=== PATIENT | female | born 1945 ===

== ENCOUNTER 2017-09-04 02:34 | Inpatient (IN) | payer OTHER, MEDICARE ==
[~2017-09-04] VITALS: Ht 167.6 cm; Wt 65.8 kg
--- NOTE | 2017-09-04 02:38 | ED CRITICAL CARE ---
History of Present Illness General Chief Complaint: Dyspnea (COPD, CHF, Other) Stated Complaint: SOB,DIFF BREATHING Source: patient, old records Exam Limitations: clinical condition Vital Signs & Intake/Output Vital Signs & Intake/Output Vital Signs Date Time Temp Pulse Resp B/P B/P Pulse O2 O2 Flow FiO2 Mean Ox Delivery Rate 09/04 0556 99.0 111 20 132/74 96 BIPAP 40% 09/04 0540 113 95 09/04 0536 115 100 09/04 0522 99.8 116 22 126/75 99 BIPAP 60% 09/04 0510 119 22 97 BIPAP 60% 09/04 0446 122 09/04 0437 BIPAP 60% 09/04 0437 128 20 98 BIPAP 60% 09/04 0414 98.7 133 27 131/78 94 BIPAP 70% 09/04 0325 138 30 97 BIPAP 70% 09/04 0252 99.1 142 30 138/67 100 BIPAP 100% 09/04 0240 148 100 09/04 0237 99.9 143 34 188/118 85 Room Air Allergies Coded Allergies: Opioids - Morphine Analogues (Intermediate, BAD RASHES 09/04/17) Opioids-Meperidine and Related (Intermediate, BAG RASHES 09/04/17) oxycodone (Intermediate, BAD RASHES 09/04/17) Reconcile Medications Albuterol Sulfate 0.63 MG/3 ML VIAL.NEB 1 Vial INH/AVRIL 4 TIMES/DAY BREATHING (Reported) Aripiprazole (Abilify) 2 MG TABLET 1 TAB PO DAILY BIPOLAR (Reported) Aspirin (Ecotrin*) 81 MG TABLET.DR 1 TAB PO DAILY HEART (Reported) Clonazepam (Klonopin) 1 MG TABLET 1 TAB PO BIDP PRN MOOD (Reported) Duloxetine HCl 30 MG CAPSULE.DR 1 CAP PO DAILY MOOD (Reported) Ferrous Sulfate 325 MG (65 MG IRON) TABLET 1 TAB PO BID SUPPLEMENT (Reported) Fluticasone Propionate (24 Hour Allergy Relief) 50 MCG/ACTUATION SPRAY.SUSP BREATHING (Reported) Furosemide 20 MG TABLET 60 MG CHF (Reported) Furosemide (Lasix) 40 MG TABLET 1 TAB PO DAILY EDEMA (Reported) Gabapentin 400 MG CAPSULE 1 CAP PO TID PAIN (Reported) Losartan Potassium 25 MG TABLET 12.5 MG HTN (Reported) Omeprazole Magnesium (Prilosec Otc) 20 MG TABLET.DR 1 TAB PO DAILY REFLUX ( Reported) Potassium Chloride 20 MEQ TAB.ER.PRT 1 TAB PO DAILY SUPPLEMENT (Reported) Pravastatin Sodium (Pravachol) 40 MG TABLET 1 TAB PO DAILY CHOLESTEROL ( Reported) Prednisone 50 MG TABLET 1 TAB PO DAILY BREATHING (Reported) Tamsulosin HCl (Flomax) 0.4 MG CAP.ER.24H NEUROGENIC BLADDER (Reported) Triage Nurses Notes Reviewed? yes Onset: Abrupt Duration: hour(s): (FEW) Timing: single episode today Injury Environment: ECF Severity: severe Associated Symptoms: DYSPNEA HPI: This is a 72-year-old female with history of CHF and COPD presents from assisted for chief complaint of severe respiratory distress. Patient was found to be saturating in the low 80s with a neb covering her face. She was cyanotic and distress. No chest pain. She is awake and alert on arrival. assisted reports that they gave her a DuoNeb prior to arrival. Patient was given 3 nitroglycerin sprays for a systolic pressure of 230 in the field and was started on CPAP with good response. Past History Travel History Traveled to [place] past 21 day No Medical History Any Pertinent Medical History? see below for history Cardiovascular: CHF Respiratory: COPD, CHRONIC HOME OXYGEN Psychiatric: bipolar disease, depression, OPIATE DEPENDENCE Surgical History Surgical History: CABG (1 VESSEL), MVR, LEFT HIP REPLACEMENT Psychosocial History Tobacco Use: Quit >30 days ago Family History Hx Contributory? No Review of Systems Review of Systems Constitutional: Denies: chills, fever. Eyes: Reports: no symptoms. Ears, Nose, Throat, Mouth: Reports: no symptoms. Respiratory: Reports: cough, short of breath. Denies: sputum production. Cardiovascular: Denies: chest pain, palpitations. Gastrointestinal/Abdominal: Reports: no symptoms. Genitourinary: Reports: no symptoms. Musculoskeletal: Reports: no symptoms. Skin: Reports: no symptoms. Neurological/Psychological: Reports: no symptoms. All Other Systems: Reviewed and Negative Physical Exam Physical Exam General Appearance: well developed/nourished, alert, awake, anxious, moderate distress, severe distress Head: atraumatic, normal appearance Eyes: Bilateral: normal appearance, PERRL, EOMI. Ears, Nose, Throat, Mouth: hearing grossly normal Neck: normal inspection, supple, full range of motion, JVD Respiratory: accessory muscle use, wheezing, respiratory distress Cardiovascular: tachycardia Peripheral Pulses: 2+ radial (R), 2+ radial (L) Gastrointestinal: normal bowel sounds, soft, non-tender Extremities: normal range of motion Neurologic/Psych: no motor/sensory deficits, awake, alert, oriented x 3 Skin: intact, normal color, warm/dry Core Measures ACS in differential dx? Yes CVA/TIA Diagnosis No Sepsis Present: No Sepsis Focused Exam Completed? No Progress Differential Diagnoses I considered the following diagnoses in my evaluation of the patient: [CHF, COPD , PNEUMONIA, ASPIRATION, ACS, PE, PTX, PLEURAL EFFUSION] Plan of Care: Orders Procedure Date/time Status Heart Healthy Diet 09/04 B Active BIPAP 09/04 05 Complete LACTIC ACID 09/04 05 Active Patient Data 09/04 05 Active ED Holding Orders 09/04 518 Active Admit to inpatient 09/04 05 Active Vital Signs 09/04 0518 Active Code Status 09/04 0518 Active BIPAP 09/04 0433 Complete EKG 09/04 0402 Active Intake & Output 09/04 0327 Active BIPAP 09/04 0305 Complete BIPAP 09/04 0240 Complete ARTERIAL BLOOD GAS (GEN) 09/04 0237 Complete Carney, Insertion/Removal/Asses 09/04 0237 Active CULTURE,URINE 09/04 0237 Active BLOOD CULTURE 09/04 0237 Active TROPONIN LEVEL 09/04 0237 Complete PARTIAL THROMBOPLASTIN TIME 09/04 0237 Complete PROTHROMBIN TIME 09/04 0237 Complete LACTIC ACID 09/04 0237 Complete COMPREHENSIVE METABOLIC PANEL 09/04 0237 Complete CBC WITHOUT DIFFERENTIAL 09/04 0237 Complete B-TYPE NATRIURETIC PEP (BNP) 09/04 0237 Complete EKG 09/04 0237 Active Laboratory Tests 09/04/17 0548: Lactic Acid Pending 09/04/17 0339: Anion Gap 13, Estimated GFR > 60, BUN/Creatinine Ratio 27.1 H, Glucose 107 H, Lactic Acid 2.5 H, Calcium 9.8, Total Bilirubin 0.4, AST 19, ALT 22, Alkaline Phosphatase 79, Troponin I 0.01, Eyg-E-Orodtafaqzm Pept 363 H, Total Protein 7.2, Albumin 4.2, Globulin 3.0, Albumin/Globulin Ratio 1.4, PT 10.1, INR 0.96, APTT 22 L, CBC w Diff MAN DIFF ORDERED, RBC 4.34, MCV 91.9, MCH 30.5, RDW 13.9, MPV 6.9 L, Gran % 82.1 H, Lymphocytes % 11.0 L, Monocytes % 6.7, Eosinophils % 0, Basophils % 0.2, Absolute Granulocytes 12.1 H, Segmented Neutrophils 76 H , Band Neutrophils 7 H, Absolute Lymphocytes 1.6, Lymphocytes 13 L, Monocytes 3, Absolute Monocytes 1.0 H, Absolute Eosinophils 0, Absolute Basophils 0, Metamyelocytes 1, Platelet Estimate ADEQUATE, Anisocytosis 1+, PUBS MCHC 33.1 09/04/17 0245: pH 7.42, pCO2 43, pO2 144 H, HCO3 27, ABG O2 Sat (Measured) 98.0, P-50 (Temp Corrected) Y, Carboxyhemoglobin 0.2 L, O2 Concentration % 100%, Temperature 99.1, Respiration Rate 20, O2 Delivery Method VISION-FFM, Vent Mode ST, Expiratory Pressure 6, Inspiratory Pressure 18, Phlebotomy Draw Site RIGHT RADIAL Microbiology 09/04 507 URINE ROUT: Urine Culture - RECD 09/04 415 BLOOD: Blood Culture - RECD 09/04 339 BLOOD: Blood Culture - RECD D/W ISAURO ANDERSON PATIENT WITH HISTORY OF OPIATE DEPENDENCE, BAD REACTIONS/HALLUCINATIONS TO NARCOTIC MEDICATIONS Diagnostic Imaging: Viewed by Me: Radiology Read. Discussed w/RAD: Radiology Read. CXR Impression: PATIENT: MONSERRAT ENRIQUE PRESENT AGE: 72 PATIENT ACCOUNT NO: [id number] : 43 LOCATION: [facility] ORDERING PHYSICIAN: Justina Hansen MD SERVICE DATE: 09/04/17 EXAM TYPE: RAD - XRY-PORTABLE CHEST XRAY EXAMINATION: XR PORTABLE CHEST CLINICAL INFORMATION: Respiratory distress. COMPARISON: None available per TECHNIQUE: Portable view of the chest was obtained. FINDINGS: Median sternotomy wires. Atrial appendage clip. Diffuse interstitial prominence with a few possible Al B lines in the periphery of the right lung suggesting mild interstitial pulmonary edema. There is linear atelectasis within the right midlung. Linear atelectasis within the right midlung versus a small amount of fluid within the minor fissure. No pneumothorax. Cardiac silhouette size is normal. No acute osseous findings. IMPRESSION: Imaging findings favor mild interstitial pulmonary edema. Linear atelectasis within the right midlung versus a small amount of fluid within the minor fissure. DICTATED BY: Jones Smith MD DATE/TIME DICTATED:09/04/17438 PRE SALES TECHNICAL ENGINEER:JESUS DATE/TIME TRANSCRIBED:09/04/17438 CONFIDENTIAL, DO NOT COPY WITHOUT APPROPRIATE AUTHORIZATION. <Electronically signed in Other Vendor System> SIGNED BY: Jones Smith MD 09/04/17443 Initial ED EKG: SINUS TACHYCARDIA 130'S Rhythm Strip: sinus tachycardia Departure Departure Time of Disposition: 517 Disposition: STILL A PATIENT Condition: Guarded Clinical Impression Primary Impression: CHF (congestive heart failure) Secondary Impressions: Respiratory failure Referrals: Royal VERONICA,John Arango (PCP/Family) Departure Forms: Customer Survey General Discharge Information Admission Note [facility] Documentation of Exam: Documentation of any treatments & extenuating circumstances including Concerns Regarding Discharge (functional status, medication knowledge or non-compliance, living conditions, etc.) that warrant an admission rather than observation: [ TELE MONITOR, BIPAP, CAREFUL DIURESIS, MONITOR I/O, SERIAL EKG/TROPONIN, CARDIOLOGY CONSULTAITON, PULMONARY CONSULTATION, PULL RECORDS FROM [facility] (LAST HOSPITALIZATION 3 WEEKS AGO), ECHOCARDIOGRAM IF NONE RECENT Critical Care Note Critical Care Note Critical Care Time: 30-74 min
[2017-09-04 04:11] LABS: ABSOLUTE BASOPHIL COUNT 0 /CUMM (0.0-0.2); ABSOLUTE EOSINOPHIL COUNT 0 /CUMM (0.0-0.7); BASOPHIL % 0.2 % (0.0-2.0); MEAN PLATELET VOLUME 6.9 FL (7.4-10.4)
[2017-09-04 04:15] LABS: ABSOLUTE GRANULOCYTE CT 12.1 /CUMM (1.4-6.5); ABSOLUTE LYMPH COUNT 1.6 /CUMM (1.2-3.4); EOSINOPHIL % 0 % (0-5); GRANULOCYTE % 82.1 % (42.2-75.2); HEMATOCRIT 39.8 % (37-47); MEAN CORPUSCULAR HGB 30.5 PG (27.0-31.0); MEAN CORPUSCULAR HGB CONC 33.1 G/DL (33.0-37.0); MEAN CORPUSCULAR VOLUME 91.9 FL (81.0-99.0); PLATELET COUNT 329 /CUMM (130-400); RBC DISTRIBUTION WIDTH 13.9 % (11.5-14.5); RED BLOOD CELL CT 4.34 /CUMM (4.20-5.40)
[2017-09-04 04:23] LABS: WHITE BLOOD CELL COUNT 14.7 /CUMM (4.8-10.8)
[2017-09-04 04:27] LABS: PT 10.1 SEC (9.4-12.5); PTT 22 SEC (25-37)
[2017-09-04] MEDS ORDERED: ABILIFY2 MG PO (04:32)
[2017-09-04] MEDS ORDERED: ASPIRIN EC81 M1 PO (04:32)
[2017-09-04] MEDS ORDERED: DULOXETINE HCL30 MG PO (04:33)
[2017-09-04] MEDS ORDERED: 24 HOUR ALLER15.8 ML (04:34)
[2017-09-04] MEDS ORDERED: LOSARTAN POTASS25 M1 (04:35)
[2017-09-04] MEDS ORDERED: FUROSEMIDE20 M1 (04:35)
[2017-09-04] MEDS ORDERED: PRILOSEC OTC20 M1 PO (04:36)
[2017-09-04] MEDS ORDERED: PRAVACHOL40 M1 PO (04:36)
[2017-09-04] MEDS ORDERED: PREDNISONE50 M1 PO (04:37)
[2017-09-04] MEDS ORDERED: ALBUTEROL0.63 MG/1 INH/SOL (04:38)
[2017-09-04] MEDS ORDERED: LASIX40 M1 PO (04:39)
[2017-09-04] MEDS ORDERED: KLONOPIN1 M1 PO (04:40)
[2017-09-04] MEDS ORDERED: FLOMAX0.4 M1 (04:40)
[2017-09-04] MEDS ORDERED: FERROUS SULFAT325 M3 PO (04:41)
[2017-09-04] MEDS ORDERED: GABAPENTIN400 M2 PO (04:43)
[2017-09-04] MEDS ORDERED: POTASSIUM CHLO20 ME2 PO (04:43)
--- NOTE | 2017-09-04 04:44 | RADIOLOGY REPORT ---
EXAMINATION: XR PORTABLE CHEST CLINICAL INFORMATION: Respiratory distress. COMPARISON: None available per TECHNIQUE: Portable view of the chest was obtained. FINDINGS: Median sternotomy wires. Atrial appendage clip. Diffuse interstitial prominence with a few possible Al B lines in the periphery of the right lung suggesting mild interstitial pulmonary edema. There is linear atelectasis within the right midlung. Linear atelectasis within the right midlung versus a small amount of fluid within the minor fissure. No pneumothorax. Cardiac silhouette size is normal. No acute osseous findings. IMPRESSION: Imaging findings favor mild interstitial pulmonary edema. Linear atelectasis within the right midlung versus a small amount of fluid within the minor fissure.
--- NOTE | 2017-09-04 05:36 | History & Physical ---
Marguerite VERONICA,Clayton 09/04/17 0535: General Information and HPI History of Present Illness: Ms. Murillo is a 72-year-old female with past medical history of bipolar disorder, depression, obesity dependence, mitral valve replacement, COPD on 23 liters home oxygen, HF, question CABG who presents from [facility] with respiratory distress. Patient notes that she had pneumonia last month and was admitted to [facility] for one week. Afterwards, she felt better. However several days ago she began experiencing shortness of breath and productive cough. There is no fever, chills, vomiting, dysuria, or abdominal pain. At baseline, she cannot ambulate and is wheelchair-bound. According to [facility] nurse, she noticed that she has been coughing the last couple days. She was started on a prednisone taper and Lasix 40 mg on 08/31. Then on 1 AM this morning, she knows that her oxygen saturation was 85%, she was wheezing, and incontinent. She gave a breathing treatment but had no improvement and because of this she sent her into the hospital. The patient is a former smoker, quit 3 years ago, [id number] history. No current alcohol or drug use. Allergies/Medications Allergies: Coded Allergies: Opioids - Morphine Analogues (Intermediate, BAD RASHES 09/04/17) Opioids-Meperidine and Related (Intermediate, BAG RASHES 09/04/17) oxycodone (Intermediate, BAD RASHES 09/04/17) Home Med list Albuterol Sulfate 0.63 MG/3 ML VIAL.NEB 1 Vial INH/AVRIL 4 TIMES/DAY BREATHING (Reported) Aripiprazole (Abilify) 2 MG TABLET 1 TAB PO DAILY BIPOLAR (Reported) Aspirin (Ecotrin*) 81 MG TABLET.DR 1 TAB PO DAILY HEART (Reported) Clonazepam (Klonopin) 1 MG TABLET 1 TAB PO BIDP PRN MOOD (Reported) Duloxetine HCl 30 MG CAPSULE.DR 1 CAP PO DAILY MOOD (Reported) Ferrous Sulfate 325 MG (65 MG IRON) TABLET 1 TAB PO BID SUPPLEMENT (Reported) Fluticasone Propionate (24 Hour Allergy Relief) 50 MCG/ACTUATION SPRAY.SUSP BREATHING (Reported) Furosemide 20 MG TABLET 60 MG CHF (Reported) Furosemide (Lasix) 40 MG TABLET 1 TAB PO DAILY EDEMA (Reported) Gabapentin 400 MG CAPSULE 1 CAP PO TID PAIN (Reported) Losartan Potassium 25 MG TABLET 12.5 MG HTN (Reported) Omeprazole Magnesium (Prilosec Otc) 20 MG TABLET.DR 1 TAB PO DAILY REFLUX ( Reported) Potassium Chloride 20 MEQ TAB.ER.PRT 1 TAB PO DAILY SUPPLEMENT (Reported) Pravastatin Sodium (Pravachol) 40 MG TABLET 1 TAB PO DAILY CHOLESTEROL ( Reported) Prednisone 50 MG TABLET 1 TAB PO DAILY BREATHING (Reported) Tamsulosin HCl (Flomax) 0.4 MG CAP.ER.24H NEUROGENIC BLADDER (Reported) Past History Travel History Traveled to [place] past 21 day No Medical History Neurological: NONE EENT: NONE Cardiovascular: CHF, hypertension Respiratory: COPD Gastrointestinal: NONE Hepatic: NONE Renal: NEUROGENIC BLADDER Musculoskeletal: NONE Psychiatric: bipolar disease, depression, OPIATE DEPENDENCE Endocrine: diabetes Blood Disorders: NONE Cancer(s): NONE 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 EENTM: Reports: no symptoms. Cardiovascular: Reports: no symptoms. Respiratory: Reports: see HPI. GI: Reports: no symptoms. Genitourinary: Reports: no symptoms. Musculoskeletal: Reports: no symptoms. Skin: Reports: no symptoms. Neurological/Psychological: Reports: no symptoms. Hematologic/Endocrine: Reports: no symptoms. Immunologic/Allergic: Reports: no symptoms. All Other Systems: Reviewed and Negative Exam & Diagnostic Data Last 24 Hrs of Vital Signs/I&O Vital Signs Date Time Temp Pulse Resp B/P B/P Pulse O2 O2 Flow FiO2 Mean Ox Delivery Rate 09/04 0556 99.0 111 20 132/74 96 BIPAP 40% 09/04 0540 113 95 09/04 0536 115 100 09/04 0522 99.8 116 22 126/75 99 BIPAP 60% 09/04 0510 119 22 97 BIPAP 60% 09/04 0446 122 09/04 0437 BIPAP 60% 09/04 0437 128 20 98 BIPAP 60% 09/04 0414 98.7 133 27 131/78 94 BIPAP 70% 09/04 0325 138 30 97 BIPAP 70% 09/04 0252 99.1 142 30 138/67 100 BIPAP 100% 09/04 0240 148 100 09/04 0237 99.9 143 34 188/118 85 Room Air Intake & Output 09/04 0800 09/04 0000 09/03 1600 Intake Total 0 Output Total Balance 0 Intake, Oral 0 Patient 160 lb Weight Weight Estimated Measurement Method Physical Exam General Appearance Alert, Oriented X3, Cooperative, Mild Distress Sepsis Skin Exam (color): Normal for Ethnicity HEENT Atraumatic, PERRLA, EOMI Cardiovascular Regular Rate, Normal S1, Normal S2 Lungs wheezing bilaterally Abdomen Normal Bowel Sounds, Soft, No Tenderness Extremities No Edema, Normal Pulses, No Tenderness/Swelling Last 24 Hrs of Labs/Jay [place]: Laboratory Tests 09/04/1748: Lactic Acid Pending 09/04/17338: Anion Gap 13, Estimated GFR > 60, BUN/Creatinine Ratio 27.1 H, Glucose 107 H, Lactic Acid 2.5 H, Calcium 9.8, Total Bilirubin 0.4, AST 19, ALT 22, Alkaline Phosphatase 79, Troponin I 0.01, Zxz-O-Sepfjvhsxit Pept 363 H, Total Protein 7.2, Albumin 4.2, Globulin 3.0, Albumin/Globulin Ratio 1.4, PT 10.1, INR 0.96, APTT 22 L, CBC w Diff MAN DIFF ORDERED, RBC 4.34, MCV 91.9, MCH 30.5, RDW 13.9, MPV 6.9 L, Gran % 82.1 H, Lymphocytes % 11.0 L, Monocytes % 6.7, Eosinophils % 0, Basophils % 0.2, Absolute Granulocytes 12.1 H, Segmented Neutrophils 76 H , Band Neutrophils 7 H, Absolute Lymphocytes 1.6, Lymphocytes 13 L, Monocytes 3, Absolute Monocytes 1.0 H, Absolute Eosinophils 0, Absolute Basophils 0, Metamyelocytes 1, Platelet Estimate ADEQUATE, Anisocytosis 1+, PUBS MCHC 33.1 09/04/17 0245: pH 7.42, pCO2 43, pO2 144 H, HCO3 27, ABG O2 Sat (Measured) 98.0, P-50 (Temp Corrected) Y, Carboxyhemoglobin 0.2 L, O2 Concentration % 100%, Temperature 99.1, Respiration Rate 20, O2 Delivery Method VISION-FFM, Vent Mode ST, Expiratory Pressure 6, Inspiratory Pressure 18, Phlebotomy Draw Site RIGHT RADIAL Microbiology 09/04 050 URINE ROUT: Urine Culture - RECD 09/04 415 BLOOD: Blood Culture - RECD 09/04 339 BLOOD: Blood Culture - RECD Assessment/Plan Assessment: Ms. Murillo is a 72-year-old female with past medical history of bipolar disorder, depression, obesity dependence, mitral valve replacement, COPD on 23 liters home oxygen, HF, question CABG who presents from [facility] with respiratory distress. On presentation, vital signs were T 99.9, HR 143, RR 34, BP 188/118, saturating 85% on room air. Laboratories were stiff and for white blood cell count 14.7, 76 neutrophils, 7 bands, hemoglobin 13.2, chloride 96, carbon dioxide 33, BUN 19, creatinine 0.7, glucose 107, lactic acid 2.5, calcium 9.8, negative LFTs, troponin 0.01, BNP 363, INR 0.96. EKG was normal. Chest x-ray showed mild interstitial edema. She was treated with vancomycin, ceftazidine, nitroglycerin, methylprednisone in the emergency room. She'll be admitted to telemetry and treated for the following problems: 1. Acute hypoxic respiratory failure 2. Dyspnea 3. Sepsis with lactic acidosis 4. Hypertensive urgency #Dyspnea: Patient desaturated to 85% on room air but has subsequently improved on oxygen therapy. She also has leukocytosis with bandemia and lactic acidosis. The chest x-ray reviewed is mild interstitial edema but pneumonia cannot be excluded. BNP is only mildly elevated, she has no JVD or leg swelling. CHF less likely. -Vancomycin and ceftazidine -Consider gentle IV fluid hydration -Trend lactic acid -TRC nebs -Cardiology consult -sputum/blood culture #Hypertensive urgency: Patient was a symptomatically blood pressure was elevated in the field and in the ER. -Telemetry monitoring -EKG and troponins 3 #Chronic medical problems: -Continue home meds DVT prophylaxis with enoxaparin Heart healthy diet Full code As Ranked By This Provider Problem List: 1. Respiratory failure Core Measures/Misc (05/23) Acute Coronary Syndrome ACS Diagnosis: No Congestive Heart Failure Congestive Heart Failure Diagnosis Yes Cerebrovascular Accident CVA/TIA Diagnosis: No VTE (View Protocol) VTE Risk Factors Age>40 No Mechanical VTE Prophylaxis d/t N/A MechProphylax Ordered No VTE Pharm Prophylaxis d/t NA PharmProphylax ordered Sepsis (View protocol) Sepsis Present: Yes Roque Robertson MD 09/04/17 0846: Resident Review Statement Resident Statement: examined this patient, discussed with marketing intern, agreed with marketing intern, discussed with family, reviewed EMR data (avail) Other Findings: Patient is a 72-year-old female with significant past medical history of chronic back pain, COPD on 3 liters of oxygen, ex-smoker, bipolar disorder, severe depression, mitral valve replacement(2016), history of CHF, history of hyponatremia, history of C. difficile, history of MRSA, presented with chief complaints of shortness of breath since last 5 days. Most of the history is taken from the daughter over the phone and from the [facility] facility. According to them patient was having, cough, shortness of breath which got worse sonce last 5 days (Aug 31). She was given nebulization , tapering dose of steroid and the Lasix without much benefit. Symptoms got worse today, so she was transferred to [place] ED. Past medical history - In March 2016, she had hip fracture due to fall, which was repaired at [facility] and she was sent to assisted living facility for rehabilitation. Later she started having shortness of breath and needed replacement of mitral valve along with single-vessel bypass in July 2016 at [facility]. During this hospitalization she got the MRSA/UTI . That's why she needed to be hospitalized for 2 months. She was discharged in September 2016. After a month in oct 2016 she had C. difficile diarrhea needed hospitalization. In April 2017, she again had recurrence of C. difficile diarrhea , which was treated medically. In May 2017 ,she had an episode of pneumonia which was treated as an outpatient which was followed by recurrence of pneumonia needed admission in June 2017 for 4 -5 days. Around 3 weeks ago,she again had an episode of pneumonia needed antibiotic . Allergies -no known drug allergies Personal history -lives at [facility], wheelchair-bound, need assistance in daily activity, ex-smoker since January 2016, smoked 1-2 packs per day since last 50 -60 years, quit alcohol 30 years ago, pain medication dependent oxycodone/ Percocet-off medications since September 2016 Family history - mother had history of hypertension, sent has history of type 1 diabetes, hypertension, depression, history of SD at the age of 40, bipolar disorder. Surgical history-history of right knee replacement 10 years ago, history of multiple back surgeries, history of mitral valve replacement in 2016 ED course -at the time of admission temperature was 99.9, pulse 143, respiratory rate 34, blood pressure 188/118, SPO2 85% on room air. Blood workup showed WBC 14.7, hemoglobin 13.2, hematocrit 39.8, platelets 329, the granulocyte 82.1, band neutrophils 7, serum sodium 141, potassium 4.3, anion gap 13, BUN 19, creatinine 0.7, glucose 107, lactic acid 2.5, calcium 9.8, AST/ALT 90/22, alkaline phosphatase 79, troponin 0.01, proBNP 363, albumin 4.2, PT/INR 10 point 1/0.96. Chest x-ray showed mild interstitial pulmonary edema. On examination, patient was conscious, cooperative, oriented to time, place and person, breathing. But the BiPAP mask, lung shows bilateral wheezing and decreased air entry, Heart S1, S2 normal, murmure present, abdomen was soft, bilateral lower leg pedal edema. She was given IV methylprednisolone 125 milligrams, Lasix 20 milligrams, one dose of injection ceftazidime and vancomycin, and kept on BiPAP to help her in breathing. Initial ABG showed pH 7.42, PCO2 43, PO2 144, bicarbonate 27. She responded to BiPAP and on FiO2 40%,she maintained her saturation of 90%. It was decided to admit the patient to telemetry floor for further evaluation and the management. Assessment and plan - Patient is a 72-year-old, wheelchair-bound female with significant past medical history of COPD, ex-smoker since last 1 year, history of mitral valve replacement and CABG, recurrent episodes of C. difficile and pneumonia, presented with chief complaints of acute shortness of breath and cough. At the time of presentation, she was having generalized bronchospasm and hypertension. She was given IV steroid, Lasix, BiPAP and she responded well. Chest x-ray shows evidence of mild interstitial pulmonary edema. Her initial troponins were negative and proBNP was in the range of 363. It seems that she had lung infection which lead to exacerbation of COPD. There may be a component of pulmonary hypertension along with CHF. COPD acute exacerbation, with pneumonia, and pulmonary hypertension - * Admitted into telemetry floor * Serial troponins and EKGs * We will follow urine and blood cultures * We will start patient on injection ceftazidime/vancomycin * Restart patient on injection mitral prednisone 60 milligrams daily * We will give tab Lasix 60 mgs once a day * We will obtain cardiology and pulmonology consult * Follow echocardiogram * Strict intake output charting * Daily weight measurement * TRC/Neb * Will consider HRCT for further consideration of pneumonia History of bipolar disorder with severe depression * We will continue duloxetine as before History of mitral valve replacement and single vein CABG - * We'll obtain cardiology consult * We'll continue aspirin Chronic back pain,nonfunctioning stimulator in the back, history of oxycodone/ Percocet dependence, off medication since September 2015 - * Avoid opioid and benzodiazepine We need to get the records from the [facility] to have complete information about the patient. 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
[2017-09-04 06:53] VITALS: BP 130/90
--- NOTE | 2017-09-04 09:48 | Admission Certification ---
Admission Certification Certification Statement - As attending physician, I certify that at the time of - admission, based on clinical presentation, severity of - symptoms, need for further diagnostic testing and - therapeutic interventions, and risk of adverse outcomes - without in-hospital treatment, in my clinical assessment, - this patient requires an acute hospital stay for a minimum - of two nights or longer. I have also considered psychsocial - factors such as support system, advanced age, financial - issues, cognitive issues, and failed out-patient treatments, - past re-admission history, safety of patient, and lack of - compliance as applicable. Specific rationale supporting this admission is: Acute hypoxemic respiratory failure need steroids and antibiotics.
--- NOTE | 2017-09-04 09:52 | PN- Att Addend ---
Attending Addendum Attending Brief Note Patient seen and examined. Agree with post graduate intern and resident H&P. This is a 72-year-old fairly complex female with past medical history of coronary artery disease, mitral valve replacement in 2016, likely congestive heart failure unclear what type on Lasix as an outpatient and COPD on 2-3 L of oxygen. In addition she has chronic back pain used to be on opiates but all that was stopped in September 2016. Hospitalizations in 2016 were complicated by MRSA and C. difficile. She was sent in with the [place] [facility] profoundly hypoxemic with an O2 sat of 85% and by the time we saw her she was already on BiPAP. She has acute hypoxemic respiratory failure most probably this is a COPD exacerbation and obviously the possibility of a gram-negative and MRSA pneumonia. Chest x-ray is being read as CHF, but the proBNP is not elevated and given the high white count and bandemia, I favor pneumonia and COPD more than CHF. Nonetheless she got IV Lasix in the ER and will follow that with by mouth Lasix. Will bring her into telemetry, rule her out with serial enzymes, keep a close watch on the tachycardia. Continue the BiPAP right now, give her IV steroids and IV Vanco and ceftaz to cover for gram-negative and MRSA pneumonia. Will have cardiology and pulmonary see her. Put her on DVT prophylaxis and follow closely.
--- NOTE | 2017-09-04 13:08 | Cons- Pulmonary ---
See Addendum General Information and HPI Consulting Request Date of Consult: 09/04/17 Requested By: med team History of Present Illness: Ms. Murillo is a 72-year-old female with past medical history of bipolar disorder, depression, obesity dependence, mitral valve replacement, COPD on 23 liters home oxygen, HF, question CABG who presents from [facility] with respiratory distress. Patient notes that she had pneumonia last month and was admitted to the hospital for one week. Afterwards, she felt better. However several days ago she began experiencing shortness of breath and productive cough. There is no fever, chills, vomiting, dysuria, or abdominal pain. At baseline, she cannot ambulate and is wheelchair-bound. According to [facility] nurse, she noticed that she has been coughing the last couple days. She was started on a prednisone taper and Lasix 40 mg on . Then on 1 AM this morning, she knows that her oxygen saturation was 85%, she was wheezing, and incontinent. She gave a breathing treatment but had no improvement and because of this she sent her into the hospital. The patient is a former smoker, quit 3 years ago, [id number] history. No current alcohol or drug use. Allergies/Medications Allergies: Coded Allergies: Opioids - Morphine Analogues (Intermediate, BAD RASHES 09/04/17) Opioids-Meperidine and Related (Intermediate, BAG RASHES 09/04/17) oxycodone (Intermediate, BAD RASHES 09/04/17) Home Med List: Albuterol Sulfate 0.63 MG/3 ML VIAL.NEB 1 Vial INH/AVRIL 4 TIMES/DAY BREATHING (Reported) Aripiprazole (Abilify) 2 MG TABLET 1 TAB PO DAILY BIPOLAR (Reported) Aspirin (Ecotrin*) 81 MG TABLET.DR 1 TAB PO DAILY HEART (Reported) Clonazepam (Klonopin) 1 MG TABLET 1 TAB PO BIDP PRN MOOD (Reported) Duloxetine HCl 30 MG CAPSULE.DR 1 CAP PO DAILY MOOD (Reported) Ferrous Sulfate 325 MG (65 MG IRON) TABLET 1 TAB PO BID SUPPLEMENT (Reported) Fluticasone Propionate (24 Hour Allergy Relief) 50 MCG/ACTUATION SPRAY.SUSP BREATHING (Reported) Furosemide 20 MG TABLET 60 MG CHF (Reported) Furosemide (Lasix) 40 MG TABLET 1 TAB PO DAILY EDEMA (Reported) Gabapentin 400 MG CAPSULE 1 CAP PO TID PAIN (Reported) Losartan Potassium 25 MG TABLET 12.5 MG HTN (Reported) Omeprazole Magnesium (Prilosec Otc) 20 MG TABLET.DR 1 TAB PO DAILY REFLUX ( Reported) Potassium Chloride 20 MEQ TAB.ER.PRT 1 TAB PO DAILY SUPPLEMENT (Reported) Pravastatin Sodium (Pravachol) 40 MG TABLET 1 TAB PO DAILY CHOLESTEROL ( Reported) Prednisone 50 MG TABLET 1 TAB PO DAILY BREATHING (Reported) Tamsulosin HCl (Flomax) 0.4 MG CAP.ER.24H NEUROGENIC BLADDER (Reported) Review of Systems Review of Systems Constitutional: Reports: see HPI. Comments Review of Systems Constitutional: Reports: no symptoms. EENTM: Reports: no symptoms. Cardiovascular: Reports: no symptoms. Respiratory: Reports: see HPI. GI: Reports: no symptoms. Genitourinary: Reports: no symptoms. Musculoskeletal: Reports: no symptoms. Skin: Reports: no symptoms. Neurological/Psychological: Reports: no symptoms. Hematologic/Endocrine: Reports: no symptoms. Immunologic/Allergic: Reports: no symptoms. 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 Extended Care Facility Smoking Status: Never Smoked Exam & Diagnostic Data Last 24 Hrs of Vital Signs/I&O Vital Signs Date Time Temp Pulse Resp B/P B/P Pulse O2 O2 Flow FiO2 Mean Ox Delivery Rate 09/04 1145 Nasal 3.0L Cannula 09/04 1145 95 Nasal 3.0L Cannula 09/04 0947 109 114/62 09/04 0655 Venti Mask 40% 09/04 0653 98.8 115 32 130/90 93 Nasal 8L Cannula 09/04 0641 93 Venti Mask 40% 09/04 0556 99.0 111 20 132/74 96 BIPAP 40% 09/04 0540 113 95 09/04 0536 115 100 09/04 0522 99.8 116 22 126/75 99 BIPAP 60% 09/04 0510 119 22 97 BIPAP 60% 09/04 0446 122 09/04 0437 BIPAP 60% 09/04 0437 128 20 98 BIPAP 60% 09/04 0414 98.7 133 27 131/78 94 BIPAP 70% 09/04 0325 138 30 97 BIPAP 70% 09/04 0252 99.1 142 30 138/67 100 BIPAP 100% 09/04 0240 148 100 09/04 0237 99.9 143 34 188/118 85 Room Air Intake & Output 09/04 1600 09/04 0800 09/04 0000 Intake Total 200 Output Total 350 Balance -150 Intake, IV 100 Intake, Oral 100 Output, Urine 350 Patient 145 lb Weight Weight Reported by Patient Measurement Method Last 48 Hrs of Labs/Jay Jay: Laboratory Tests 09/04/17 1134: Troponin I 0.02 09/04/17 0548: Lactic Acid 1.6 09/04/17 0339: Anion Gap 13, Estimated GFR > 60, BUN/Creatinine Ratio 27.1 H, Glucose 107 H, Lactic Acid 2.5 H, Calcium 9.8, Total Bilirubin 0.4, AST 19, ALT 22, Alkaline Phosphatase 79, Troponin I 0.01, Nyk-Y-Dh[place]j Pept 363 H, Total Protein 7.2, Albumin 4.2, Globulin 3.0, Albumin/Globulin Ratio 1.4, PT 10.1, INR 0.96, APTT 22 L, CBC w Diff MAN DIFF ORDERED, RBC 4.34, MCV 91.9, MCH 30.5, RDW 13.9, MPV 6.9 L, Gran % 82.1 H, Lymphocytes % 11.0 L, Monocytes % 6.7, Eosinophils % 0, Basophils % 0.2, Absolute Granulocytes 12.1 H, Segmented Neutrophils 76 H , Band Neutrophils 7 H, Absolute Lymphocytes 1.6, Lymphocytes 13 L, Monocytes 3, Absolute Monocytes 1.0 H, Absolute Eosinophils 0, Absolute Basophils 0, Metamyelocytes 1, Platelet Estimate ADEQUATE, Anisocytosis 1+, PUBS MCHC 33.1 09/04/17 0245: pH 7.42, pCO2 43, pO2 144 H, HCO3 27, ABG O2 Sat (Measured) 98.0, P-50 (Temp Corrected) Y, Carboxyhemoglobin 0.2 L, O2 Concentration % 100%, Temperature 99.1, Respiration Rate 20, O2 Delivery Method VISION-FFM, Vent Mode ST, Expiratory Pressure 6, Inspiratory Pressure 18, Phlebotomy Draw Site RIGHT RADIAL SIGNIFICANT DATA Reviewed in the computer Chest x-ray showed mild pulmonary edema atelectasis right mid lung area versus fluid in the fissure no previous x-rays available Previous urine culture had grown Escherichia coli with ESBL blood cultures are pending She has been afebrile Other blood work reviewed from baseline bicarbonate is elevated white count is 14.7 with 82% segs ABG done yesterday did not reveal significant hypercarbia but however patient was hypoxemic ProBNP was 363. Assessment/Plan Impression/Plan: General Appearance Alert, Oriented X3, Cooperative, Mild Distress Sepsis Skin Exam (color): Normal for Ethnicity HEENT Atraumatic, PERRLA, EOMI Cardiovascular Regular Rate, Normal S1, Normal S2 Lungs wheezing bilaterally Abdomen Normal Bowel Sounds, Soft, No Tenderness Extremities No Edema, Normal Pulses, No Tenderness/Swelling This is a lady with significant history of smoking, wheelchair bound due to significant deconditioning, history of COPD, previous mitral valve replacement and CABG, previous C. difficile and pneumonia, ESBL Escherichia coli colonization and a bladder, bipolar disorder, chronic low back pain with nonfunctioning stimulator in the back with history of oxycodone Percocet dependence and apparently has been off medication since earlier this year, anxiety and depression, hyperlipidemia, urinary outlet obstruction at times with probable atonic bladder, Now comes in with * Acute respiratory insufficiency with evidence of hypoxemia in the rehabilitation facility with significant hypertension upon admission with rapid improvement highly suggestive of acute respiratory failure probably related to pulmonary edema. Unlikely that she has had significant COPD exacerbation. * Significant COPD with mild wheezing probably related to pulmonary edema with a component of mild COPD exacerbation * Unlikely that she has significant pneumonia and patient has had previous ESBL in the bladder and as well as multiple episodes of C. difficile * Previous history of ischemic heart disease and mitral valve replacement * Depression and anxiety with on and off Klonopin and gabapentin use which may have contributed to her hypersomnia upon admission * Chronic respiratory insufficiency with mild hypercarbia * Atonic bladder with neurogenic bladder * Previous history of opiate dependence and multiple issues as noted in the history RECOMMENDATION * Lsbsn-[id number]-hkhbv nebulizer therapy * Discontinue intravenous antibiotics and observe and sputum culture * Continue gentle diuresis * Blood pressure management to keep her blood pressure less than 140 * Keep her O2 sat at 92% * Continue all her other medications * Check for C. difficile if she has any diarrhea * Change her from intravenous steroids to 50 mg prednisone from a.m. * Repeat chest x-ray * Keep off BiPAP and watch her mental status * Try to avoid benzos * Continue to watch her for any withdrawal from benzos as she was on Klonopin before * Reduce gabapentin dose and can resume it * Continue Flomax * Check urinary antigens for Legionella and the strep pneumo * Urine analysis and culture * Keep the head of bed elevated Prognosis is guarded Consult Acknowledgment - Thank you for your consult request.
--- NOTE | 2017-09-04 13:22 | Cons- Cardiology ---
General Information and HPI Consulting Request Date of Consult: 09/04/17 Requested By: Raul VERONICA,Beltran Reason for Consult: Dyspnea Source of Information: patient, old records Exam Limitations: poor historian History of Present Illness: This is a 72-year-old female with a past medical history of bipolar disorder, COPD on home oxygen, heart failure with preserved ejection fraction, coronary artery disease with prior vein graft to the RCA with bioprosthetic mitral valve for severe MR and left atrial clip in 2016, and chronic back pain. The patient is a limited historian and some of the HPI was obtained from the medical record. She does not believe she has followed-up with a mountain bike guide since her cardiac surgery in 2016 but records indicate she was seen by Dr. Fulton at [facility] in the past. She is unable to tell me why she was sent to the hospital but the medical record indicates that while she was at her nursing facility she was noted to be hypoxemic which did not improve with breathing treatments. She was apparently at [facility] last month for pneumonia. She denies any chest pain or palpitations. She has had an intermittent cough. Denies any slurring of speech, bleeding, or syncope. Allergies/Medications Allergies: Coded Allergies: Opioids - Morphine Analogues (Intermediate, BAD RASHES 09/04/17) Opioids-Meperidine and Related (Intermediate, BAG RASHES 09/04/17) oxycodone (Intermediate, BAD RASHES 09/04/17) Home Med List: Albuterol Sulfate 0.63 MG/3 ML VIAL.NEB 1 Vial INH/AVRIL 4 TIMES/DAY BREATHING (Reported) Aripiprazole (Abilify) 2 MG TABLET 1 TAB PO DAILY BIPOLAR (Reported) Aspirin (Ecotrin*) 81 MG TABLET.DR 1 TAB PO DAILY HEART (Reported) Clonazepam (Klonopin) 1 MG TABLET 1 TAB PO BIDP PRN MOOD (Reported) Duloxetine HCl 30 MG CAPSULE.DR 1 CAP PO DAILY MOOD (Reported) Ferrous Sulfate 325 MG (65 MG IRON) TABLET 1 TAB PO BID SUPPLEMENT (Reported) Fluticasone Propionate (24 Hour Allergy Relief) 50 MCG/ACTUATION SPRAY.SUSP BREATHING (Reported) Furosemide 20 MG TABLET 60 MG CHF (Reported) Furosemide (Lasix) 40 MG TABLET 1 TAB PO DAILY EDEMA (Reported) Gabapentin 400 MG CAPSULE 1 CAP PO TID PAIN (Reported) Losartan Potassium 25 MG TABLET 12.5 MG HTN (Reported) Omeprazole Magnesium (Prilosec Otc) 20 MG TABLET.DR 1 TAB PO DAILY REFLUX ( Reported) Potassium Chloride 20 MEQ TAB.ER.PRT 1 TAB PO DAILY SUPPLEMENT (Reported) Pravastatin Sodium (Pravachol) 40 MG TABLET 1 TAB PO DAILY CHOLESTEROL ( Reported) Prednisone 50 MG TABLET 1 TAB PO DAILY BREATHING (Reported) Tamsulosin HCl (Flomax) 0.4 MG CAP.ER.24H NEUROGENIC BLADDER (Reported) Current Medications: Current Medications Sig/Thaddeus Start time Last Medication Dose Route Stop Time Status Admin Albuterol Sulfate 3 ML EVERY 4 HRS/AWAKE 09/04 1200 AC 09/04 INH 1154 Albuterol Sulfate 3 ML Q6 PRN 09/04 0845 AC INH Aspirin Buffered 81 MG DAILY 09/04 1000 AC 09/04 PO 0946 Atorvastatin Calcium 40 MG 1700 09/04 1700 AC PO Ceftazidime 1,000 MG IQ8 09/04 1600 AC IV Ceftazidime 0 .STK-MED ONE 09/04 0451 DC .ROUTE Ceftazidime 1,000 MG ONCE ONE 09/04 0445 DC 09/04 IV 09/04 0446 0456 Duloxetine HCl 30 MG DAILY 09/04 1000 AC 09/04 PO 0946 Enoxaparin Sodium 40 MG DAILY 09/04 1000 AC 09/04 SC 0947 Furosemide 40 MG DAILY 09/04 1000 AC 09/04 PO 0932 Furosemide 20 MG ONCE ONE 09/04 0930 DC 09/04 IV 09/04 0931 0928 Furosemide 0 .STK-MED ONE 09/04 0535 DC IV Furosemide 20 MG ONCE ONE 09/04 0530 DC 09/04 IV 09/04 0531 0554 Losartan Potassium 12.5 MG DAILY 09/04 1000 AC 09/04 PO 0947 Methylprednisolone 60 MG Q8 09/04 1400 AC IV Methylprednisolone 60 MG DAILY 09/04 1000 DC 09/04 IV 0946 Methylprednisolone 0 .STK-MED ONE 09/04 0248 DC .ROUTE Methylprednisolone 125 MG ONCE ONE 09/04 024 DC 09/04 IV 09/04 024 0247 Nitroglycerin 0 .STK-MED ONE 09/04 0305 DC SL Nitroglycerin 0.4 MG ONCE ONE 09/04 0245 DC 09/04 SL 09/04 246 0237 Vancomycin HCl 1,000 MG DAILY 09/04 1000 AC Sodium Chloride 250 ML IV Vancomycin HCl 1,000 MG ONCE ONE 09/04 0445 DC 09/04 Dextrose/Water 250 ML IV 09/04 0544 0456 Review of Systems Review of Systems: Review of systems as per HPI. The remainder of a 10 point review of systems was reviewed and was otherwise negative. 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 Extended Care Facility Smoking Status: Never Smoked Exam & Diagnostic Data Vital Signs and I&O Vital Signs Date Time Temp Pulse Resp B/P B/P Pulse O2 O2 Flow FiO2 Mean Ox Delivery Rate 09/04 1145 Nasal 3.0L Cannula 09/04 1145 95 Nasal 3.0L Cannula 09/04 0947 109 114/62 09/04 0655 Venti Mask 40% 09/04 0653 98.8 115 32 130/90 93 Nasal 8L Cannula 09/04 0641 93 Venti Mask 40% 09/04 0556 99.0 111 20 132/74 96 BIPAP 40% 09/04 0540 113 95 09/04 0536 115 100 09/04 0522 99.8 116 22 126/75 99 BIPAP 60% 09/04 0510 119 22 97 BIPAP 60% 09/04 0446 122 09/04 0437 BIPAP 60% 09/04 0437 128 20 98 BIPAP 60% 09/04 0414 98.7 133 27 131/78 94 BIPAP 70% 09/04 0325 138 30 97 BIPAP 70% 09/04 0252 99.1 142 30 138/67 100 BIPAP 100% 09/04 0240 148 100 09/04 0237 99.9 143 34 188/118 85 Room Air Intake & Output 09/04 1600 09/04 0800 09/04 0000 09/03 1600 09/03 0800 09/03 0000 Intake Total 200 Output Total 350 Balance -150 Intake, IV 100 Intake, Oral 100 Output, Urine 350 Patient 145 lb Weight Weight Reported by Patient Measurement Method Physical Exam: General: no apparent distress. Alert. On nasal cannula Eyes: No obvious scleral icterus. HEENT: No jugular venous distention or abnormal jugular venous pulsations. Cardiovascular: Normal intensity S1/S2. Regular Respiratory: Scattered wheezing with decreased air entry Abdomen: Soft, nontender with no guarding or rebound tenderness. Musculoskeletal: No clubbing or cyanosis noted some: No edema Skin: Warm, CABG scar noted Neurologic: No gross focal deficits noted. Labs/Jay Jay Results: Laboratory Tests 09/04 09/04 09/04 1134 0548 0339 Chemistry Sodium (137 - 145 mmol/L) 141 Potassium (3.5 - 5.1 mmol/L) 4.3 Chloride (98 - 107 mmol/L) 96 L Carbon Dioxide (22 - 30 mmol/L) 33 H Anion Gap (5 - 16) 13 BUN (7 - 17 mg/dL) 19 H Creatinine (0.5 - 1.0 mg/dL) 0.7 Estimated GFR (>60 ml/min) > 60 BUN/Creatinine Ratio (7 - 25 %) 27.1 H Glucose (65 - 99 mg/dL) 107 H Lactic Acid (0.7 - 2.1 mmol/L) 1.6 2.5 H Calcium (8.4 - 10.2 mg/dL) 9.8 Total Bilirubin (0.2 - 1.3 mg/dL) 0.4 AST (14 - 36 U/L) 19 ALT (9 - 52 U/L) 22 Alkaline Phosphatase (<127 U/L) 79 Troponin I (< 0.11 ng/ml) 0.02 0.01 Gmu-V-Pwpcsscmnns Pept (<125 pg/mL) 363 H Total Protein (6.3 - 8.2 g/dL) 7.2 Albumin (3.5 - 5.0 g/dL) 4.2 Globulin (1.9 - 4.2 gm/dL) 3.0 Albumin/Globulin Ratio (1.1 - 2.2 %) 1.4 Coagulation PT (9.4 - 12.5 SEC) 10.1 INR (0.90 - 1.19) 0.96 APTT (25 - 37 SEC) 22 L Hematology CBC w Diff MAN DIFF ORDERED WBC (4.8 - 10.8 /CUMM) 14.7 H RBC (4.20 - 5.40 /CUMM) 4.34 Hgb (12.0 - 16.0 G/DL) 13.2 Hct (37 - 47 %) 39.8 MCV (81.0 - 99.0 FL) 91.9 MCH (27.0 - 31.0 PG) 30.5 RDW (11.5 - 14.5 %) 13.9 Plt Count (130 - 400 /CUMM) 329 MPV (7.4 - 10.4 FL) 6.9 L Gran % (42.2 - 75.2 %) 82.1 H Lymphocytes % (20.5 - 51.1 %) 11.0 L Monocytes % (1.7 - 9.3 %) 6.7 Eosinophils % (0 - 5 %) 0 Basophils % (0.0 - 2.0 %) 0.2 Absolute Granulocytes (1.4 - 6.5 /CUMM) 12.1 H Segmented Neutrophils (42.2 - 75.2 %) 76 H Band Neutrophils (0.0 - 5.0 %) 7 H Absolute Lymphocytes (1.2 - 3.4 /CUMM) 1.6 Lymphocytes (20.5 - 51.1 %) 13 L Monocytes (1.7 - 9.3 %) 3 Absolute Monocytes (0.10 - 0.60 /CUMM) 1.0 H Absolute Eosinophils (0.0 - 0.7 /CUMM) 0 Absolute Basophils (0.0 - 0.2 /CUMM) 0 Metamyelocytes (0.0 - 1.0 %) 1 Platelet Estimate (ADEQUATE) ADEQUATE Anisocytosis 1+ PUBS MCHC (33.0 - 37.0 G/DL) 33.1 09/04 0245 Blood Gas pH (7.35 - 7.45 PH) 7.42 pCO2 (35 - 45 TORR) 43 pO2 (80 - 100 TORR) 144 H HCO3 (21 - 28 MEQ/L) 27 ABG O2 Sat (Measured) (>96.0 %) 98.0 P-50 (Temp Corrected) Y Carboxyhemoglobin (1.5 - 5.0 %) 0.2 L O2 Concentration % 100% Temperature (97.0 - 100.0 FARH) 99.1 Respiration Rate (BPM) 20 O2 Delivery Method VISION-FFM Vent Mode ST Expiratory Pressure (CM H2O P) 6 Inspiratory Pressure (CM H2O P) 18 Miscellaneous Phlebotomy Draw Site RIGHT RADIAL Diagnostic Data EKG Results Tracing was personally reviewed and shows sinus tachycardia at 126 bpm CXR Results Imaging findings favor mild interstitial pulmonary edema. Linear atelectasis within the right midlung versus a small amount of fluid within the minor fissure. Other Results Telemetry tracings were personally reviewed and shows sinus tachycardia Assessment/Plan Assessment/Plan 1. Shortness of breath; likely multifactorial 2. COPD on home oxygen 3. Acute on chronic heart failure with preserved ejection fraction 4. Coronary artery disease with prior vein graft to the RCA with bioprosthetic mitral valve for severe MR and left atrial clip in 2016 5. Bipolar disorder The patient's shortness of breath is likely multifactorial in the setting of her COPD history and cardiac history; she may have a component of volume overload although her BNP level is not very elevated. Agree with gentle diuresis at this time. Recommend obtaining a transthoracic echo. Given her shortness of breath with sinus tachycardia and decreased mobility I would recommend obtaining a CT with IV contrast to exclude pulmonary embolism. Steroid regimen per Dr. Roberts. Continue on aspirin and statin therapy. Jose Carney MD [facility] Consult Acknowledgment - Thank you for your consult request.
[2017-09-04 14:06] VITALS: BP 124/82
--- NOTE | 2017-09-04 15:50 | CT SCAN REPORT ---
EXAMINATION: CT ANGIOGRAM OF THE CHEST WITH AND WITHOUT CONTRAST (CT PULMONARY ANGIOGRAM FOR PE) CLINICAL INFORMATION: Acute dyspnea; question pulmonary embolus. COMPARISON: Chest radiograph of the same date. TECHNIQUE: Prior to contrast administration, noncontrast localization images were obtained. Subsequently, multidetector volumetric imaging was performed from the thoracic inlet to below the diaphragms following the administration of 95 mL Optiray 350 intravenous contrast. No contrast reaction reported. Sagittal, coronal, and MIP oblique sagittal reformatted images were obtained on the CT workstation, uploaded to PACS, and reviewed. Total exam dose-length product 360.05 mGy-cm. FINDINGS: QUALITY OF STUDY/CONTRAST BOLUS: Satisfactory PULMONARY ARTERIES: No central or segmental pulmonary emboli. THORACIC AORTA: No aneurysm or dissection. There is moderate abscess chronic change of the thoracic aorta. LUNG: No nodules or masses. There is focal airspace disease at the bilobed bases consistent with pneumonia versus atelectasis. There is mild scar/subsegmental atelectasis in the lingula. PLEURA: There is a trace effusion in the accessory fissure. No left pleural effusion or pneumothorax. MEDIASTINUM: Normal heart size. There is been a prior mitral valvuloplasty and atrial appendage clip placement. No pericardial effusion. No hilar or mediastinal lymphadenopathy. No evidence of septal bowing or right heart strain. CHEST WALL/AXILLA: No axillary or internal mammary lymphadenopathy. OSSEOUS STRUCTURES: No acute or suspicious osseous abnormality. Spinal stimulator lead noted. UPPER ABDOMEN: There has been a prior cholecystectomy. There is a large hiatus hernia. The bilateral adrenal glands are unremarkable. No reflux of contrast into the hepatic veins to suggest elevated right heart pressures. IMPRESSION: 1. No pulmonary embolus or thoracic aortic aneurysm or dissection is seen. 2. There is mild to moderate airspace disease at the posterior bases, consistent with acute pneumonia versus atelectasis. Please correlate clinically. 3. There is linear scar/subsegmental atelectasis in the lingula. VTE: negative
[2017-09-04 22:20] VITALS: BP 130/70
[2017-09-05 06:42] VITALS: BP 130/88
--- NOTE | 2017-09-05 08:22 | PN- Housestaff ---
Jose VERONICA,[facility] 09/05/17 0822: Subjective Follow-up For: Dyspea Tele-Events Since Last Visit: NSR with HR 98-110. No overnight events. Subjective: Patient was seen and examined at bedside. She has still has dyspnea but states she has been feeling considerably better after her breathing treatment. She offers no active complaints at this time. Review of Systems Constitutional: Reports: no symptoms. Objective Last 24 Hrs of Vital Signs/I&O Vital Signs Date Time Temp Pulse Resp B/P B/P Pulse O2 O2 Flow FiO2 Mean Ox Delivery Rate 09/05 0800 92 Nasal 3.0L Cannula 09/05 0754 92 Nasal 3.0L Cannula 09/05 0642 97.8 105 20 130/88 95 Nasal 2.5L Cannula 09/05 0544 Nasal 2.5L Cannula 09/05 0000 Nasal 2.0L Cannula 09/04 2220 98.4 108 22 130/70 93 Nasal Cannula 09/04 1609 100 132/84 09/04 1600 Nasal 3.0L Cannula 09/04 1550 93 Nasal 2.5L Cannula 09/04 1406 98.1 112 22 124/82 93 Nasal 8L Cannula 09/04 1145 Nasal 3.0L Cannula 09/04 1145 95 Nasal 3.0L Cannula Intake & Output 09/05 1600 09/05 0800 09/05 0000 Intake Total 120 600 Output Total 400 600 Balance -280 0 Intake, Oral 120 600 Output, Urine 400 600 Physical Exam General Appearance: Alert, Oriented X3, Cooperative, Mild Distress Skin: No Rashes, No Breakdown Skin Temp/Moisture Exam: Warm/Dry Sepsis Skin Exam (color): Normal for Ethnicity HEENT: Atraumatic Cardiovascular: Normal S1, Normal S2, No Murmurs Lungs: diffuse wheezing and crackles Assessment/Plan Assessment: Ms. Murillo is a 72-year-old female with past medical history of bipolar disorder, depression, obesity dependence, mitral valve replacement, COPD on 23 liters home oxygen, HF, question CABG who presents from [facility] with respiratory distress. Assessment and Plan: Acute Hypoxic Respiratory Failure: On admission patient desaturated to 85% on room air but subsequently improved on oxygen therapy. Her respiratory failure is likely due to pulmonary edema and mild COPD exacerbation. She also had leukocytosis with bandemia and lactic acidosis. Her urine is positive for strep pneumonia. * Continue IV Ceftriaxone * Continue PO lasix 40mg daily. One dose IV lasix 40mg for pulmonary edema. * K-dur 40meq daily. * Switched to PO prednisone 40mg * TRC/nebs as needed. * Continue oxygen supplementation to maintain sats >92%. * Her white count has normalized. * F/u blood cultures * urine culture shows no growth after 1 day. Hypertensive urgency: Patient came in with hypertensive urgency which rapidly resolved. * ACS was r/o with serial trops and EKGs. * Echocardiogram pending Chronic medical problems: -Continue home meds DVT prophylaxis with enoxaparin Heart healthy diet Full code Problem List: 1. CHF (congestive heart failure) Pain Ratin Pain Location: none Pain Goal: Remain pain free Pain Plan: none Tomorrow's Labs & Rationales: Nell Massey MD 09/05/17 1124: Attending MD Review Statement Attending Statement Attending MD Statement: examined this patient, discuss w/resident/PA/ED EDUCATIONAL AIDE, agreed w/resident/PA/ED EDUCATIONAL AIDE, reviewed EMR data (avail), discussed with nursing, reviewed images Attending Assessment/Plan: Patient feels better. CTA results noted and there is no PE but does have consolidation. Her urine strep pneumo antigen is positive said this is an acute pneumococcal pneumonia. Continue IV ceftriaxone , will talk to pulmonary and wean her to by mouth steroids with a quick taper. Restart home medications as mentation and respiratory status tolerates.
[2017-09-05 08:28] LABS: ABSOLUTE BASOPHIL COUNT 0 /CUMM (0.0-0.2); ABSOLUTE EOSINOPHIL COUNT 0 /CUMM (0.0-0.7); ABSOLUTE LYMPH COUNT 0.8 /CUMM (1.2-3.4); ABSOLUTE MONOCYTE COUNT 0.7 /CUMM (0.10-0.60); BASOPHIL % 0 % (0.0-2.0); EOSINOPHIL % 0 % (0-5); HEMATOCRIT 36.9 % (37-47); MEAN CORPUSCULAR HGB 30.9 PG (27.0-31.0); MEAN CORPUSCULAR HGB CONC 33.4 G/DL (33.0-37.0); MEAN CORPUSCULAR VOLUME 92.5 FL (81.0-99.0); MEAN PLATELET VOLUME 6.9 FL (7.4-10.4); PLATELET COUNT 272 /CUMM (130-400); RBC DISTRIBUTION WIDTH 13.6 % (11.5-14.5); RED BLOOD CELL CT 3.99 /CUMM (4.20-5.40); WHITE BLOOD CELL COUNT 9.4 /CUMM (4.8-10.8)
[2017-09-05 09:04] LABS: GRANULOCYTE % 84.7 % (42.2-75.2)
--- NOTE | 2017-09-05 11:58 | PN- Pulmonary ---
Subjective HPI/Critical Care Issues: Patient was seen and examined at bedside. She has still has dyspnea but states she has been feeling considerably better after her breathing treatment. She offers no active complaints at this time. Review of Systems Constitutional: Reports: no symptoms. Objective Current Medications: Current Medications Sig/Thaddeus Start time Last Medication Dose Route Stop Time Status Admin Albuterol Sulfate 3 ML EVERY 4 HRS/AWAKE 09/04 1200 AC 09/05 INH 1151 Albuterol Sulfate 3 ML Q6 PRN 09/04 0845 AC INH Aripiprazole 2 MG DAILY 09/05 1133 AC PO Aspirin Buffered 81 MG DAILY 09/04 1000 AC 09/05 PO 0841 Atorvastatin Calcium 40 MG 1700 09/04 1700 AC 09/04 PO 1606 Calcium Carbonate 500 MG ONCE ONE 09/05 1015 DC 09/05 PO 09/05 1016 1128 Ceftazidime 1,000 MG IQ8 09/04 1600 CAN IV Ceftriaxone Sodium 1,000 MG DAILY 09/05 1000 AC 09/05 IV 0842 Clonazepam 1 MG BID PRN 09/05 1145 AC PO 09/12 1144 Duloxetine HCl 30 MG DAILY 09/04 1000 AC 09/05 PO 0841 Enoxaparin Sodium 40 MG DAILY 09/04 1000 AC 09/05 SC 0842 Ferrous Sulfate 325 MG DAILY 09/05 1134 AC PO Fluticasone 2 PUF BID 09/05 1133 AC Propionate INH Furosemide 40 MG DAILY 09/04 1000 AC 09/05 PO 0841 Gabapentin 400 MG TID 09/05 1135 AC PO Gabapentin 200 MG TID 09/04 1600 CAN PO Gabapentin 200 MG TID 09/04 1600 DC 09/05 PO 0842 Guaifenesin 600 MG Q12 09/04 2200 AC 09/05 PO 0842 Losartan Potassium 12.5 MG DAILY 09/04 1000 AC 09/05 PO 0841 Methylprednisolone 60 MG Q8 09/04 1400 DC 09/05 IV 0523 Omeprazole 20 MG DAILY AC 09/06 0700 AC PO Potassium Chloride 20 MEQ ONCE ONE 09/05 1115 DC 09/05 PO 09/05 1116 1128 Potassium Chloride 40 MEQ DAILY 09/05 1114 AC 09/05 PO 1127 Prednisone 50 MG DAILY 09/06 1000 AC PO Prednisone 50 MG ONCE ONE 09/05 1145 DC PO 09/05 1146 Tamsulosin HCl 0.4 MG DAILY 09/06 1000 AC PO Tamsulosin HCl 0.4 MG DAILY 09/04 1504 DC 09/05 PO 0841 Vancomycin HCl 1,000 MG DAILY 09/04 1000 DC Sodium Chloride 250 ML IV Vital Signs & I&O Last 24 Hrs of Vitals and I&O: Vital Signs Date Time Temp Pulse Resp B/P B/P Pulse O2 O2 Flow FiO2 Mean Ox Delivery Rate 09/05 0800 92 Nasal 3.0L Cannula 09/05 0754 92 Nasal 3.0L Cannula 09/05 0642 97.8 105 20 130/88 95 Nasal 2.5L Cannula 09/05 0544 Nasal 2.5L Cannula 09/05 0000 Nasal 2.0L Cannula 09/04 2220 98.4 108 22 130/70 93 Nasal Cannula 09/04 1609 100 132/84 09/04 1600 Nasal 3.0L Cannula 09/04 1550 93 Nasal 2.5L Cannula 09/04 1406 98.1 112 22 124/82 93 Nasal 8L Cannula Intake & Output 09/05 1600 09/05 0800 09/05 0000 Intake Total 120 600 Output Total 400 600 Balance -280 0 Intake, Oral 120 600 Output, Urine 400 600 Laboratory Tests 09/05 09/04 0630 1615 Chemistry Sodium (137 - 145 mmol/L) 134 L Potassium (3.5 - 5.1 mmol/L) 3.1 L Chloride (98 - 107 mmol/L) 102 Carbon Dioxide (22 - 30 mmol/L) 26 Anion Gap (5 - 16) 7 BUN (7 - 17 mg/dL) 17 Creatinine (0.5 - 1.0 mg/dL) 0.4 L Estimated GFR (>60 ml/min) > 60 BUN/Creatinine Ratio (7 - 25 %) 42.5 H Troponin I (< 0.11 ng/ml) < 0.01 Hematology CBC w Diff NO MAN DIFF REQ WBC (4.8 - 10.8 /CUMM) 9.4 RBC (4.20 - 5.40 /CUMM) 3.99 L Hgb (12.0 - 16.0 G/DL) 12.3 Hct (37 - 47 %) 36.9 L MCV (81.0 - 99.0 FL) 92.5 MCH (27.0 - 31.0 PG) 30.9 RDW (11.5 - 14.5 %) 13.6 Plt Count (130 - 400 /CUMM) 272 MPV (7.4 - 10.4 FL) 6.9 L Gran % (42.2 - 75.2 %) 84.7 H Lymphocytes % (20.5 - 51.1 %) 8.4 L Monocytes % (1.7 - 9.3 %) 6.9 Eosinophils % (0 - 5 %) 0 Basophils % (0.0 - 2.0 %) 0 Absolute Granulocytes (1.4 - 6.5 /CUMM) 8.0 H Absolute Lymphocytes (1.2 - 3.4 /CUMM) 0.8 L Absolute Monocytes (0.10 - 0.60 /CUMM) 0.7 H Absolute Eosinophils (0.0 - 0.7 /CUMM) 0 Absolute Basophils (0.0 - 0.2 /CUMM) 0 PUBS MCHC (33.0 - 37.0 G/DL) 33.4 09/04 09/04 09/04 1320 1134 0548 Chemistry Lactic Acid (0.7 - 2.1 mmol/L) 1.6 Troponin I (< 0.11 ng/ml) 0.02 Urines Urine Color (YEL,AMB,STR) YEL Urine Clarity (CLEAR) CLEAR Urine pH (5.0 - 8.0) 6.0 Ur Specific Eads (1.001 - 1.035) 1.010 Urine Protein (NEG,<30 MG/DL) NEG Urine Ketones (NEG) NEG Urine Nitrite (NEG) NEG Urine Bilirubin (NEG) NEG Urine Urobilinogen (0.1 - 1.0 EU/dl) 0.2 Ur Leukocyte Esterase (NEG) NEG Ur Microscopic SEDIMENT EXAMINED Urine RBC (0 - 5 /HPF) RARE Urine Mucus (FEW,NONE) FEW Urine Hemoglobin (NEG) TRACE-INTACT Urine Glucose (N MG/DL) NEG 09/04 09/04 0339 0245 Blood Gas pH (7.35 - 7.45 PH) 7.42 pCO2 (35 - 45 TORR) 43 pO2 (80 - 100 TORR) 144 H HCO3 (21 - 28 MEQ/L) 27 ABG O2 Sat (Measured) (>96.0 %) 98.0 P-50 (Temp Corrected) Y Carboxyhemoglobin (1.5 - 5.0 %) 0.2 L O2 Concentration % 100% Temperature (97.0 - 100.0 FARH) 99.1 Respiration Rate (BPM) 20 O2 Delivery Method VISION-FFM Vent Mode ST Expiratory Pressure (CM H2O P) 6 Inspiratory Pressure (CM H2O P) 18 Chemistry Sodium (137 - 145 mmol/L) 141 Potassium (3.5 - 5.1 mmol/L) 4.3 Chloride (98 - 107 mmol/L) 96 L Carbon Dioxide (22 - 30 mmol/L) 33 H Anion Gap (5 - 16) 13 BUN (7 - 17 mg/dL) 19 H Creatinine (0.5 - 1.0 mg/dL) 0.7 Estimated GFR (>60 ml/min) > 60 BUN/Creatinine Ratio (7 - 25 %) 27.1 H Glucose (65 - 99 mg/dL) 107 H Lactic Acid (0.7 - 2.1 mmol/L) 2.5 H Calcium (8.4 - 10.2 mg/dL) 9.8 Total Bilirubin (0.2 - 1.3 mg/dL) 0.4 AST (14 - 36 U/L) 19 ALT (9 - 52 U/L) 22 Alkaline Phosphatase (<127 U/L) 79 Troponin I (< 0.11 ng/ml) 0.01 [id number] Pept (<125 pg/mL) 363 H Total Protein (6.3 - 8.2 g/dL) 7.2 Albumin (3.5 - 5.0 g/dL) 4.2 Globulin (1.9 - 4.2 gm/dL) 3.0 Albumin/Globulin Ratio (1.1 - 2.2 %) 1.4 Coagulation PT (9.4 - 12.5 SEC) 10.1 INR (0.90 - 1.19) 0.96 APTT (25 - 37 SEC) 22 L Hematology CBC w Diff MAN DIFF ORDERED WBC (4.8 - 10.8 /CUMM) 14.7 H RBC (4.20 - 5.40 /CUMM) 4.34 Hgb (12.0 - 16.0 G/DL) 13.2 Hct (37 - 47 %) 39.8 MCV (81.0 - 99.0 FL) 91.9 MCH (27.0 - 31.0 PG) 30.5 RDW (11.5 - 14.5 %) 13.9 Plt Count (130 - 400 /CUMM) 329 MPV (7.4 - 10.4 FL) 6.9 L Gran % (42.2 - 75.2 %) 82.1 H Lymphocytes % (20.5 - 51.1 %) 11.0 L Monocytes % (1.7 - 9.3 %) 6.7 Eosinophils % (0 - 5 %) 0 Basophils % (0.0 - 2.0 %) 0.2 Absolute Granulocytes (1.4 - 6.5 /CUMM) 12.1 H Segmented Neutrophils (42.2 - 75.2 %) 76 H Band Neutrophils (0.0 - 5.0 %) 7 H Absolute Lymphocytes (1.2 - 3.4 /CUMM) 1.6 Lymphocytes (20.5 - 51.1 %) 13 L Monocytes (1.7 - 9.3 %) 3 Absolute Monocytes (0.10 - 0.60 /CUMM) 1.0 H Absolute Eosinophils (0.0 - 0.7 /CUMM) 0 Absolute Basophils (0.0 - 0.2 /CUMM) 0 Metamyelocytes (0.0 - 1.0 %) 1 Platelet Estimate (ADEQUATE) ADEQUATE Anisocytosis 1+ PUBS MCHC (33.0 - 37.0 G/DL) 33.1 Miscellaneous Phlebotomy Draw Site RIGHT RADIAL Microbiology Date/Time Procedure - Status Source Growth 09/04 0507 Legionella Antigen - COMP URINE ROUT 09/04 0507 Streptococcus pneumoniae Antigen (M - COMP URINE ROUT STREP PNEUMO BACTERIAL AG 09/04 0507 Urine Culture - RES URINE ROUT 09/04 0415 Blood Culture - RECD BLOOD 09/04 0339 Blood Culture - RECD BLOOD Impression/Plan Impression/Plan Impression/Plan: General Appearance Alert, Oriented X3, Cooperative, Mild Distress Sepsis Skin Exam (color): Normal for Ethnicity HEENT Atraumatic, PERRLA, EOMI Cardiovascular Regular Rate, Normal S1, Normal S2 Lungs wheezing bilaterally Abdomen Normal Bowel Sounds, Soft, No Tenderness Extremities No Edema, Normal Pulses, No Tenderness/Swelling URinary Pneumo antigen positive CT chest IMPRESSION: 1. No pulmonary embolus or thoracic aortic aneurysm or dissection is seen. 2. There is mild to moderate airspace disease at the posterior bases, consistent with acute pneumonia versus atelectasis. Please correlate clinically. 3. There is linear scar/subsegmental atelectasis in the lingula. VTE: negative DICTATED BY: John Carmona MD DATE/TIME DICTATED:09/04/171533 INTERNATIONAL MANAGER:JESUS DATE/TIME TRANSCRIBED:09/04/171533 This is a lady with significant history of smoking, wheelchair bound due to significant deconditioning, history of COPD, previous mitral valve replacement and CABG, previous C. 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 Unlikely that she has had significant COPD exacerbation. * Bilateral post basal infiltrates consistant with pna with postive strep pneumo antigen * Significant COPD with mild wheezing probably related to pulmonary edema with a component of mild COPD exacerbation * Patient has had previous ESBL in the bladder and as well as multiple episodes of C. difficile * Previous history of ischemic heart disease and mitral valve replacement * Depression and anxiety with on and off Klonopin and gabapentin use which may have contributed to her hypersomnia upon admission * Chronic respiratory insufficiency with mild hypercarbia * Atonic bladder with neurogenic bladder * Previous history of opiate dependence and multiple issues as noted in the history RECOMMENDATION * Cont iv ceftriaxone * IV lasix 40 mg today after one or two doses of po potassium * [id number] nebulizer therapy * Agg replacement of potassium * Continue gentle diuresis * Blood pressure management to keep her blood pressure less than 140 * Keep her O2 sat at 92% * Continue all her other medications * Check for C. difficile if she has any diarrhea * Change to po prednisone 40 mg daily * Keep off BiPAP and watch her mental status * Try to avoid benzos * Continue to watch her for any withdrawal from benzos as she was on Klonopin before * Continue Flomax * Urine analysis and culture * Keep the head of bed elevated Increase activity
[2017-09-05 14:29] VITALS: BP 122/60
--- NOTE | 2017-09-05 18:52 | ECHOCARDIOGRAM REPORT ---
MONSERRAT ENRIQUE Age: 72 : 1945 Gender: F Exam Date: 09/05/2017 10:46 Exam Location: [facility] Ht (in): 66 Wt (lb): 145 BSA: 1.76 BP: 130 / 88 Ordering Physician: Viridiana Robertson MD Referring Physician: Gustavo Carney M.D. Technologist: Angelic Villanueva RDCS Room Number: 172 Indications: CONGENITAL HEART DISEASE Rhythm: Technical Quality: Technically difficult study FINDINGS Left Ventricle Normal global left ventricular size, wall thickness, systolic function with no obvious regional wall motion abnormalities. Left ventricular ejection fraction is estimated at > 55 %. Right Ventricle Normal right ventricular size and function. Right Atrium Normal right atrial size. Left Atrium Mild left atrial dilatation. Mitral Valve Bioprosthetic mitral valve (mean gradient 6 mmHg). Trace mitral regurgitation. Aortic Valve No aortic stenosis. Trileaflet aortic valve. Tricuspid Valve Tricuspid valve not well visualized, grossly normal. Trace to mild tricuspid regurgitation. Mild pulmonary hypertension. Pulmonic Valve Pulmonic valve not well visualized. Pericardium No pericardial effusion. Great Vessels Normal size aortic root. CONCLUSIONS Technically difficult study. Normal global left ventricular size, wall thickness, systolic function with no obvious regional wall motion abnormalities. Left ventricular ejection fraction is estimated at > 55 %. Normal right ventricular size and function. Mild left atrial dilatation. Bioprosthetic mitral valve (mean gradient 6 mmHg). Mild pulmonary hypertension. No pericardial effusion. Gustavo Carney M.D. (Electronically Signed) Final Date: 05 September 2017 18:52 MEASUREMENTS (Male / Female) Normal Values 2D ECHO LV Diastolic Diameter PLAX 3.0 cm 4.2 - 5.9 / 3.9 - 5.3 cm LV Systolic Diameter PLAX 2.0 cm 2.1 - 4.0 cm LV Fractional Shortening PLAX 33.3 % 25 - 46 % LV Ejection Fraction 2D Teich 63.6 % IVS Diastolic Thickness 1.0 cm LVPW Diastolic Thickness 1.0 cm LV Relative Wall Thickness 0.7 RV Internal Dim ED PLAX 2.4 cm 1.9 - 3.8 cm LVOT Diameter 1.7 cm Aortic Root Diameter 2.7 cm LA Systolic Diameter LX 4.0 cm 3.0 - 4.0 / 2.7 - 3.8 cm LA Volume 46.0 cm 18 - 58 / 22 - 52 cm Ascending Aorta Diameter 3.1 cm DOPPLER AV Peak Velocity 131.0 cm/s AV Peak Gradient 6.9 mmHg AV Mean Velocity 93.4 cm/s AV Mean Gradient 4.0 mmHg AV Velocity Time Integral 23.8 cm LVOT Peak Velocity 108.0 cm/s LVOT Peak Gradient 4.7 mmHg LVOT Mean Velocity 75.6 cm/s LVOT Mean Gradient 3.0 mmHg LVOT Velocity Time Integral 21.2 cm LVOT Stroke Volume 48.1 cm AV Area Cont Eq vti 2.0 cm AV Area Cont Eq pk 1.9 cm MV Peak Velocity 180.5 cm/s MV Peak Gradient 13.0 mmHg MV Mean Velocity 109.0 cm/s MV Mean Gradient 6.0 mmHg Mitral E Point Velocity 133.0 cm/s Mitral A Point Velocity 134.0 cm/s Mitral E to A Ratio 1.0 MV PHT Velocity 185.5 cm/s MV Deceleration Powell 1092.0 cm/s MV Pressure Half Time 51.0 ms MV Area PHT 4.3 cm MV Deceleration Time 219.0 ms TR Peak Velocity 303.0 cm/s TR Peak Gradient 36.7 mmHg Right Atrial Pressure 5.0 mmHg Pulmonary Artery Systolic Pressu 41.7 mmHg Right Ventricular Systolic Press 41.7 mmHg PV Peak Velocity 85.5 cm/s PV Peak Gradient 2.9 mmHg PV Mean Velocity 66.9 cm/s PV Mean Gradient 2.0 mmHg PV Velocity Time Integral 16.3 cm LV E' Lateral Velocity 7.9 cm/s Mitral E to LV E' Lateral Ratio 16.8 LV E' Septal Velocity 7.7 cm/s Mitral E to LV E' Septal Ratio 17.3
[2017-09-05 23:45] VITALS: BP 116/70
[2017-09-06 06:00] VITALS: BP 118/68
--- NOTE | 2017-09-06 09:22 | PN- Housestaff ---
Gabriela Serna MD 09/06/17 0922: Subjective Follow-up For: Dyspnea Tele-Events Since Last Visit: Normal sinus rhythm heart rate from 90-98 no events Subjective: Patient seen and examined bedside. Patient continues to have dyspnea and stridor. No other complaints. Review of Systems Constitutional: Reports: no symptoms. EENTM: Reports: no symptoms. Cardiovascular: Reports: no symptoms. Respiratory: Reports: short of breath. Gastrointestinal: Reports: no symptoms. Genitourinary: Reports: no symptoms. Musculoskeletal: Reports: no symptoms. Skin: Reports: no symptoms. Neurological/Psychological: Reports: no symptoms. Hematologic/Endocrine: Reports: no symptoms. Immunologic/Allergic: Reports: no symptoms. Objective Last 24 Hrs of Vital Signs/I&O Vital Signs Date Time Temp Pulse Resp B/P B/P Pulse O2 O2 Flow FiO2 Mean Ox Delivery Rate 09/06 1702 94 Nasal 3.0L Cannula 09/06 1600 Nasal 3.0L Cannula 09/06 1531 97.2 119 20 100/60 96 Nasal 3.0L Cannula 09/06 0845 120/62 09/06 0845 120/62 09/06 0824 96 Nasal 3.0L Cannula 09/06 0741 96 Nasal 3.0L Cannula 09/06 0600 98.4 97 22 118/68 96 09/06 0438 95 Nasal 3.0L Cannula 09/06 0000 94 Nasal 3.0L Cannula 09/05 2345 97.0 99 22 116/70 95 Nasal Cannula Intake & Output 09/06 1600 09/06 0800 09/06 0000 Intake Total 430 400 Output Total 7699 781 6672 Balance -1020 -400 -1050 Intake, IV 30 Intake, Oral 400 400 Output, Urine 3086 394 7285 Physical Exam General Appearance: Alert, Oriented X3, Cooperative, Mild Distress Skin: No Rashes, No Breakdown Skin Temp/Moisture Exam: Warm/Dry HEENT: Atraumatic Cardiovascular: Regular Rate, Normal S1, Normal S2, No Murmurs Lungs: diffuse wheezes Abdomen: Normal Bowel Sounds, Soft, No Tenderness Current Medications: Current Medications Sig/Thaddeus Start time Last Medication Dose Route Stop Time Status Admin Albuterol Sulfate 3 ML EVERY 4 HRS/AWAKE 09/04 1200 AC 09/06 INH 2038 Albuterol Sulfate 3 ML Q6 PRN 09/04 0845 AC INH Aripiprazole 2 MG DAILY 12/31 1133 AC 09/06 PO 0844 Aspirin Buffered 81 MG DAILY 09/04 1000 AC 09/06 PO 0845 Atorvastatin Calcium 40 MG 1700 09/04 1700 AC 09/06 PO 1622 Ceftriaxone Sodium 1,000 MG DAILY 09/05 1000 AC 09/06 IV 0846 Clonazepam 1 MG BID PRN 09/05 1145 AC 09/05 PO 09/12 1144 1629 Duloxetine HCl 30 MG DAILY 09/04 1000 AC 09/06 PO 0844 Enoxaparin Sodium 40 MG DAILY 09/04 1000 AC 09/06 SC 0846 Ferrous Sulfate 325 MG DAILY 09/05 1134 AC 09/06 PO 0844 Fluticasone 2 PUF BID 09/05 1133 AC 09/06 Propionate INH 2142 Furosemide 40 MG DAILY 09/04 1000 AC 09/06 PO 0844 Gabapentin 400 MG TID 09/05 1135 AC 09/06 PO 2142 Guaifenesin 600 MG Q12 09/04 2200 AC 09/06 PO 2142 Losartan Potassium 12.5 MG DAILY 09/04 1000 AC 09/06 PO 0845 Omeprazole 40 MG DAILY AC 09/06 0700 AC 09/06 PO 0745 Potassium Chloride 40 MEQ ONCE ONE 09/06 1330 DC 09/06 PO 09/06 1331 1428 Potassium Chloride 40 MEQ DAILY 09/05 1114 AC 09/06 PO 0844 Prednisone 40 MG DAILY 09/06 1000 AC 09/06 PO 0845 Tamsulosin HCl 0.4 MG DAILY 09/06 1000 AC 09/06 PO 0845 Last 24 Hrs of Lab/Jay Jay Results Last 24 Hrs of Labs/Mics: Laboratory Tests 09/06/17 0626: Anion Gap 8, Estimated GFR > 60, BUN/Creatinine Ratio 34.3 H, Magnesium 2.1 Assessment/Plan Assessment: Ms. Murillo is a 72-year-old female with past medical history of bipolar disorder, depression, obesity dependence, mitral valve replacement, COPD on 23 liters home oxygen, HF, question CABG who presents from [facility] with respiratory distress. Assessment and Plan: Acute Hypoxic Respiratory Failure: On admission patient desaturated to 85% on room air but subsequently improved on oxygen therapy. Her respiratory failure is likely due to pulmonary edema and questionable mild COPD exacerbation. She also had leukocytosis with bandemia and lactic acidosis. Her urine is positive for strep pneumonia. Leukocytosis resolved on 09/05. Chest x-ray showed bilateral basilar infiltrates consistent with pneumonia. * Continue ceftaz and vancomycin * CT neck to examine causes stridor such as tracheobronchomalacia, vocal cord dysfunction, was negative except for atypical mildly enlarged right lower paratracheal lymph node of 1.3 cm. * Pulmonary thinks that as her respiratory insufficiency was accompanied with significant hypertension and rapid improvement, that her respiratory failure was probably likely due to pulmonary edema with mild COPD. Continue PO lasix 40mg daily. One dose IV lasix 40mg for pulmonary edema today. * K-dur 40meq daily. * Switched to PO prednisone 40mg , will give for a total of 8 days. * TRC/nebs as needed. * Continue oxygen supplementation to maintain sats >92%. * F/u blood cultures * urine culture shows no growth after 1 day. * If stridor symptoms continue we could give her 1 dose of racemic epinephrine nebulizer therapy * Cardiology following Anxiety and bipolar disorder * Can restart Klonopin Hypertensive urgency: Patient came in with hypertensive urgency which rapidly resolved. * ACS was r/o with serial trops and EKGs. * Echocardiogram shows normal biventricular function with an normal bioprosthetic valve Chronic medical problems: -Continue home meds DVT prophylaxis with enoxaparin Heart healthy diet Full code Problem List: 1. CHF (congestive heart failure) 2. Respiratory failure Pain Ratin Pain Location: none Pain Goal: Pain 4 or less Pain Plan: Pathway Tomorrow's Labs & Rationales: CBC and BEP Norbert VERONICA,Nell 09/06/17 0936: Attending MD Review Statement Attending Statement Attending MD Statement: examined this patient, discuss w/resident/PA/REAL ESTATE APPRAISER, agreed w/resident/PA/REAL ESTATE APPRAISER, reviewed EMR data (avail), discussed with nursing, reviewed images Attending Assessment/Plan: Overall patient feels better but she does have some respiratory distress questionable stridor. Appreciate pulmonary eval. She is a 72-year-old with a significant cardiac history and a mitral valve replacement is here with acute hypoxemic respiratory failure from mild COPD exacerbation and pneumococcal pneumonia as evidenced by positive pneumococcal antigen in the urine. We have her on IV ceftriaxone with the plan to switch to by mouth antibiotics in a.m. if better. Appreciate pulmonary evaluation and we are getting a CT neck to rule out any obstruction that's causing the stridor. She is on the by mouth steroids and we are weaning that off. We'll also have her on the by mouth Lasix with K replacement and and will follow closely.
--- NOTE | 2017-09-06 09:32 | PN- Pulmonary ---
Subjective HPI/Critical Care Issues: Stable but has ongoing mild stridor prob related to vocal cord dysfunction vs bronchotracheomalacia Afebrile Oxygen saturation is 96% on 3 L No new abnormalities noted and no blood work other than baseline bicarbonate being slightly elevated potassium 3.6 white count 9.4 which is improving Urine output adequate Objective Current Medications: Current Medications Sig/Thaddeus Start time Last Medication Dose Route Stop Time Status Admin Albuterol Sulfate 3 ML EVERY 4 HRS/AWAKE 09/04 1200 AC 09/06 INH 0740 Albuterol Sulfate 3 ML Q6 PRN 09/04 0845 AC INH Aripiprazole 2 MG DAILY 09/05 1133 AC 09/06 PO 0844 Aspirin Buffered 81 MG DAILY 09/04 1000 AC 09/06 PO 0845 Atorvastatin Calcium 40 MG 1700 09/04 1700 AC 09/05 PO 1629 Calcium Carbonate 500 MG ONCE ONE 09/05 1015 DC 09/05 PO 09/05 1016 1128 Ceftriaxone Sodium 1,000 MG DAILY 09/05 1000 AC 09/06 IV 0846 Clonazepam 1 MG .STK-MED ONE 09/05 1615 DC PO 09/05 1616 Clonazepam 1 MG BID PRN 09/05 1145 AC 09/05 PO 09/12 1144 1629 Duloxetine HCl 30 MG DAILY 09/04 1000 AC 09/06 PO 0844 Enoxaparin Sodium 40 MG DAILY 09/04 1000 AC 09/06 SC 0846 Ferrous Sulfate 325 MG DAILY 09/05 1134 AC 09/06 PO 0844 Fluticasone 2 PUF BID 09/05 1133 AC 09/06 Propionate INH 0855 Furosemide 20 MG ONCE ONE 09/05 2000 DC 09/05 IV 09/05 Furosemide 40 MG ONCE ONE 09/05 1415 DC 09/05 IV 09/05 1416 1502 Furosemide 40 MG DAILY 09/04 1000 AC 09/06 PO 0844 Gabapentin 400 MG TID 09/05 1135 AC 09/06 PO 0844 Gabapentin 200 MG TID 09/04 1600 DC 09/05 PO 0842 Guaifenesin 600 MG Q12 09/04 2200 AC 09/06 PO 0845 Losartan Potassium 12.5 MG DAILY 09/04 1000 AC 09/06 PO 0845 Methylprednisolone 40 MG ONCE ONE 09/05 1915 CAN IV 09/05 1916 Methylprednisolone 60 MG Q8 09/04 1400 DC 09/05 IV 0523 Omeprazole 20 MG DAILY AC 09/06 0700 DC PO Omeprazole 40 MG DAILY AC 09/06 0700 AC 09/06 PO 0745 Potassium Chloride 20 MEQ ONCE ONE 09/05 1115 DC 09/05 PO 09/05 1116 1128 Potassium Chloride 40 MEQ DAILY 09/05 1114 AC 09/06 PO 0844 Prednisone 50 MG DAILY 09/06 1000 DC PO Prednisone 40 MG DAILY 09/06 1000 AC 09/06 PO 0845 Prednisone 50 MG ONCE ONE 09/05 1145 DC 09/05 PO 09/05 1146 1317 Tamsulosin HCl 0.4 MG DAILY 09/06 1000 AC 09/06 PO 0845 Tamsulosin HCl 0.4 MG DAILY 09/04 1504 DC 09/05 PO 0841 Vital Signs & I&O Last 24 Hrs of Vitals and I&O: Vital Signs Date Time Temp Pulse Resp B/P B/P Pulse O2 O2 Flow FiO2 Mean Ox Delivery Rate 09/06 0845 120/62 09/06 0845 120/62 09/06 0824 96 Nasal 3.0L Cannula 09/06 0741 96 Nasal 3.0L Cannula 09/06 0600 98.4 97 22 118/68 96 09/06 0438 95 Nasal 3.0L Cannula 09/06 0000 94 Nasal 3.0L Cannula 09/05 2345 97.0 99 22 116/70 95 Nasal Cannula 09/05 1600 Nasal 3.0L Cannula 09/05 1600 93 Nasal 3.0L Cannula 09/05 1429 99.0 120 20 122/60 94 Nasal 2.0L Cannula Intake & Output 09/06 1600 09/06 0800 09/06 0000 Intake Total 400 Output Total 400 1450 Balance -400 -1050 Intake, Oral 400 Output, Urine 400 1450 Impression/Plan Impression/Plan Impression/Plan: General Appearance Alert, Oriented X3, Cooperative, Mild Distress, mild stridor which appears to be self-induced Sepsis Skin Exam (color): Normal for Ethnicity HEENT Atraumatic, PERRLA, EOMI Cardiovascular Regular Rate, Normal S1, Normal S2 Lungs wheezing bilaterally Abdomen Normal Bowel Sounds, Soft, No Tenderness Extremities No Edema, Normal Pulses, No Tenderness/Swelling URinary Pneumo antigen positive CT chest IMPRESSION: 1. No pulmonary embolus or thoracic aortic aneurysm or dissection is seen. 2. There is mild to moderate airspace disease at the posterior bases, consistent with acute pneumonia versus atelectasis. Please correlate clinically. 3. There is linear scar/subsegmental atelectasis in the lingula. VTE: negative DICTATED BY: John Carmona MD DATE/TIME DICTATED:09/04/171533 CURATOR OF COLLECTIONS:JESUS DATE/TIME TRANSCRIBED:09/04/171533 This is a lady with significant history of smoking, wheelchair bound due to significant deconditioning, history of COPD, previous mitral valve replacement and CABG, previous C. 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 Unlikely that she has had significant COPD exacerbation. * Bilateral post basal infiltrates consistant with pna with postive strep pneumo antigen * Expiratory audible wheezing most likely related to vocal cord dysfunction versus other pathology. Unlikely she has any other pathology in her neck. This may be related to vocal cord dysfunction. Tracheobronchomalacia is a possibility but seems less likely * Significant COPD with mild wheezing probably related to pulmonary edema with a component of mild COPD exacerbation * Patient has had previous ESBL in the bladder and as well as multiple episodes of C. difficile * Previous history of ischemic heart disease and mitral valve replacement * Depression and anxiety with on and off Klonopin and gabapentin use which may have contributed to her hypersomnia upon admission * Chronic respiratory insufficiency with mild hypercarbia * Atonic bladder with neurogenic bladder * Previous history of opiate dependence and multiple issues as noted in the history RECOMMENDATION * CT scan of the neck to rule out any other otology * Cont iv ceftriaxone, today and change to by mouth antibiotics tomorrow * Aggressive potassium replacement. Keep potassium more than 40 may need 40 mEq * [id number] nebulizer therapy * Continue gentle diuresis * Blood pressure management to keep her blood pressure less than 140 * Keep her O2 sat at 92% * Continue all her other medications * Check for C. difficile if she has any diarrhea * Prednisone 40 mg daily, weaning in 8 days * If the CAT scan is unremarkable can resume low-dose Klonopin as she does have bipolar disorder and significant anxiety * Continue Flomax * The stridor-like symptoms continue she probably would benefit from one dose of racemic epinephrine nebulizer therapy to see whether it would help * Keep the head of bed elevated Increase activity
--- NOTE | 2017-09-06 11:41 | CT SCAN REPORT ---
EXAMINATION: CT NECK WITH CONTRAST CLINICAL INFORMATION: Evaluate stridor as per passenger attendant. COMPARISON: Chest CTA 09/04/2017. TECHNIQUE: CT of the neck was performed following the intravenous administration of 93 mL of Optiray 320. Multiplanar reformats were rendered and reviewed. DLP: 576 mGy-cm FINDINGS: The pharyngeal and laryngeal contours appear normal. The trachea appears normal without mass or filling defects. An enlarged morphologically abnormal mediastinal lymph node is incidentally noted measuring 1.3 cm at the right lower paratracheal station. See chest CT report from 09/04/2017 for discussion of thoracic findings. No new consolidation has developed in the upper lungs. There are postoperative findings of prior sternotomy. No suspicious adenopathy is seen in the neck. No necrotic or suppurative lymph nodes are seen. The bilateral parotid and submandibular glands appear normal. The thyroid gland appears normal. The major arteries of the neck demonstrate normal enhancement allowing for atheromatous changes. The visualized portions of the intracranial contents appear normal. There are no paranasal sinus fluid levels. The mastoid air cells are clear. Mild multilevel degenerative changes are seen throughout the cervical and upper thoracic spine. No destructive osseous lesion is seen. IMPRESSION: 1. No mass or suspicious adenopathy in the neck. 2. Atypical mildly enlarged right lower paratracheal lymph node measuring 1.3 cm. 3. No tracheal abnormality identified.
--- NOTE | 2017-09-06 13:09 | PN- Cardiology ---
Subjective Subjective: Shortness of breath grossly unchanged. No chest pain. Objective Vital Signs and I&Os Vital Signs Date Time Temp Pulse Resp B/P B/P Pulse O2 O2 Flow FiO2 Mean Ox Delivery Rate 09/06 0845 120/62 09/06 0845 120/62 09/06 0824 96 Nasal 3.0L Cannula 09/06 0741 96 Nasal 3.0L Cannula 09/06 0600 98.4 97 22 118/68 96 09/06 0438 95 Nasal 3.0L Cannula 09/06 0000 94 Nasal 3.0L Cannula 09/05 2345 97.0 99 22 116/70 95 Nasal Cannula 09/05 1600 Nasal 3.0L Cannula 09/05 1600 93 Nasal 3.0L Cannula 09/05 1429 99.0 120 20 122/60 94 Nasal 2.0L Cannula Intake & Output 09/06 1600 09/06 0800 09/06 0000 09/05 1600 09/05 0800 09/05 0000 Intake Total 400 570 120 600 Output Total 400 1450 400 600 Balance -400 -1050 570 -280 0 Intake, IV 10 Intake, Oral 400 560 120 600 Number 3 Bowel Movements Output, Urine 400 1450 400 600 Physical Exam: General: no apparent distress. Alert. On nasal cannula Eyes: No obvious scleral icterus. HEENT: No jugular venous distention or abnormal jugular venous pulsations. Cardiovascular: Normal intensity S1/S2. Regular Respiratory: Scattered wheezing with decreased air entry Abdomen: Soft, nontender with no guarding or rebound tenderness. Musculoskeletal: No clubbing or cyanosis noted some: No edema Skin: Warm, CABG scar noted Neurologic: No gross focal deficits noted. Current Medications: Current Medications Sig/Thaddeus Start time Last Medication Dose Route Stop Time Status Admin Albuterol Sulfate 3 ML EVERY 4 HRS/AWAKE 09/04 1200 AC 09/06 INH 1133 Albuterol Sulfate 3 ML Q6 PRN 09/04 0845 AC INH Aripiprazole 2 MG DAILY 09/05 1133 AC 09/06 PO 0844 Aspirin Buffered 81 MG DAILY 09/04 1000 AC 09/06 PO 0845 Atorvastatin Calcium 40 MG 1700 09/04 1700 AC 09/05 PO 1629 Ceftriaxone Sodium 1,000 MG DAILY 09/05 1000 AC 09/06 IV 0846 Clonazepam 1 MG .STK-MED ONE 09/05 1615 DC PO 09/05 1616 Clonazepam 1 MG BID PRN 09/05 1145 AC 09/05 PO 09/12 1144 1629 Duloxetine HCl 30 MG DAILY 09/04 1000 AC 09/06 PO 0844 Enoxaparin Sodium 40 MG DAILY 09/04 1000 AC 09/06 SC 0846 Ferrous Sulfate 325 MG DAILY 09/05 1134 AC 09/06 PO 0844 Fluticasone 2 PUF BID 09/05 1133 AC 09/06 Propionate INH 0855 Furosemide 20 MG ONCE ONE 09/05 2000 DC 09/05 IV 09/05 Furosemide 40 MG ONCE ONE 09/05 1415 DC 09/05 IV 09/05 1416 1502 Furosemide 40 MG DAILY 09/04 1000 AC 09/06 PO 0844 Gabapentin 400 MG TID 09/05 1135 AC 09/06 PO 0844 Guaifenesin 600 MG Q12 09/04 2200 AC 09/06 PO 0845 Losartan Potassium 12.5 MG DAILY 09/04 1000 AC 09/06 PO 0845 Methylprednisolone 40 MG ONCE ONE 09/05 1915 CAN IV 09/05 1916 Omeprazole 20 MG DAILY AC 09/06 0700 DC PO Omeprazole 40 MG DAILY AC 09/06 0700 AC 09/06 PO 0745 Potassium Chloride 40 MEQ DAILY 09/05 1114 AC 09/06 PO 0844 Prednisone 40 MG DAILY 09/06 1000 AC 09/06 PO 0845 Tamsulosin HCl 0.4 MG DAILY 09/06 1000 AC 09/06 PO 0845 Results Last 48 Hrs of Labs/Mics: Laboratory Tests 09/06/17 0626: Anion Gap 8, Estimated GFR > 60, BUN/Creatinine Ratio 34.3 H, Magnesium 2.1 09/05/17 0630: Anion Gap 7, Estimated GFR > 60, BUN/Creatinine Ratio 42.5 H, CBC w Diff NO MAN DIFF REQ, RBC 3.99 L, MCV 92.5, MCH 30.9, RDW 13.6, MPV 6.9 L, Gran % 84.7 H, Lymphocytes % 8.4 L, Monocytes % 6.9, Eosinophils % 0, Basophils % 0, Absolute Granulocytes 8.0 H, Absolute Lymphocytes 0.8 L, Absolute Monocytes 0.7 H, Absolute Eosinophils 0, Absolute Basophils 0, PUBS MCHC 33.4 09/04/17 1615: Troponin I < 0.01 09/04/17 1320: Urine Color YEL, Urine Clarity CLEAR, Urine pH 6.0, Ur Specific [place] 1.010, Urine Protein NEG, Urine Ketones NEG, Urine Nitrite NEG, Urine Bilirubin NEG, Urine Urobilinogen 0.2, Ur Leukocyte Esterase NEG, Ur Microscopic SEDIMENT EXAMINED, Urine RBC RARE, Urine Mucus FEW, Urine Hemoglobin TRACE-INTACT, Urine Glucose NEG Recent Imaging Studies: Neck CT: 1. No mass or suspicious adenopathy in the neck. 2. Atypical mildly enlarged right lower paratracheal lymph node measuring 1.3 cm. 3. No tracheal abnormality identified. Echo: Technically difficult study. Normal global left ventricular size, wall thickness, systolic function with no obvious regional wall motion abnormalities. Left ventricular ejection fraction is estimated at > 55 %. Normal right ventricular size and function. Mild left atrial dilatation. Bioprosthetic mitral valve (mean gradient 6 mmHg). Mild pulmonary hypertension. No pericardial effusion. Gustavo Carney M.D. (Electronically Signed) Final Date: 05 September 2017 18:52 Assessment/Plan Assessment/Plan 1. Shortness of breath; likely multifactorial 2. COPD on home oxygen 3. Acute on chronic heart failure with preserved ejection fraction 4. Coronary artery disease with prior vein graft to the RCA with bioprosthetic mitral valve for severe MR and left atrial clip in 2016 5. Bipolar disorder 6. PNA Shortness of breath and grossly unchanged. Echocardiogram as above shows normal biventricular function with grossly normal bioprosthetic mitral valve. Remains on antibiotics. Agree with the oral Lasix. Maintain on aspirin and statin. Prednisone taper per pulmonary. Jose Carney MD [facility] Continue telemetry? No
[2017-09-06 15:31] VITALS: BP 100/60
[2017-09-06 22:16] VITALS: BP 114/70
[2017-09-07 06:58] VITALS: BP 180/100
--- NOTE | 2017-09-07 07:41 | PN- Housestaff ---
See Addendum Subjective Follow-up For: Acute hypoxic respiratory failure Tele-Events Since Last Visit: No overnight acute events. Subjective: Patient seen and examined. Reports shortness of breath much improved than before. Denies fevers and chills, continues to have stridor, as per patient improved after nebs. Review of Systems Constitutional: Reports: see HPI. Objective Last 24 Hrs of Vital Signs/I&O Vital Signs Date Time Temp Pulse Resp B/P B/P Pulse O2 O2 Flow FiO2 Mean Ox Delivery Rate 09/07 0730 97 Nasal 3.0L Cannula 09/07 08 100 178/100 09/07 0811 100 178/100 09/07 0800 97 Nasal 3.0L Cannula 09/07 0658 97.5 101 20 180/100 97 Nasal 3.0L Cannula 09/07 0000 Nasal 3.0L Cannula 09/06 2216 98.0 100 20 114/70 95 09/06 1702 94 Nasal 3.0L Cannula 09/06 1600 Nasal 3.0L Cannula 09/06 1531 97.2 119 20 100/60 96 Nasal 3.0L Cannula Intake & Output 09/07 1600 09/07 0800 09/07 0000 Intake Total 120 480 Output Total 500 200 Balance -380 280 Intake, Oral 120 480 Output, Urine 500 200 Physical Exam General Appearance: Alert, Oriented X3, Cooperative Other Physical Findings: Lungs diffuse inspiratory and expiratory wheezes with rhonchi bilaterally Current Medications: Current Medications Sig/Thaddeus Start time Last Medication Dose Route Stop Time Status Admin Acetaminophen 650 MG Q6PRN PRN 09/07 0045 AC 09/07 PO 0035 Albuterol Sulfate 3 ML EVERY 4 HRS/AWAKE 09/04 1200 AC 09/07 INH 0828 Albuterol Sulfate 3 ML Q6 PRN 09/04 0845 AC INH Aripiprazole 2 MG DAILY 09/05 1133 AC 09/07 PO 0811 Aspirin Buffered 81 MG DAILY 09/04 1000 AC 09/07 PO 0811 Atorvastatin Calcium 40 MG 1700 09/04 1700 AC 09/06 PO 1622 Ceftriaxone Sodium 1,000 MG DAILY 09/05 1000 AC 09/07 IV 0810 Clonazepam 1 MG BID PRN 09/05 1145 AC 09/07 PO 09/12 1144 0035 Duloxetine HCl 30 MG DAILY 09/04 1000 AC 09/07 PO 0811 Enoxaparin Sodium 40 MG DAILY 09/04 1000 AC 09/07 SC 0811 Ferrous Sulfate 325 MG DAILY 09/05 1134 AC 09/07 PO 0810 Fluticasone 2 PUF BID 09/05 1133 AC 09/07 Propionate INH 0812 Furosemide 40 MG DAILY 09/04 1000 AC 09/07 PO 0810 Gabapentin 400 MG TID 09/05 1135 AC 09/07 PO 0810 Guaifenesin 600 MG Q12 09/04 2200 AC 09/07 PO 0810 Losartan Potassium 12.5 MG DAILY 09/04 1000 AC 09/07 PO 0812 Omeprazole 40 MG DAILY AC 09/06 0700 AC 09/07 PO 0513 Potassium Chloride 40 MEQ ONCE ONE 09/06 1330 DC 09/06 PO 09/06 1331 1428 Potassium Chloride 40 MEQ DAILY 09/05 1114 AC 09/07 PO 0810 Prednisone 40 MG DAILY 09/07 1000 UNVr PO Prednisone 40 MG DAILY 09/06 1000 DC 09/07 PO 0810 Tamsulosin HCl 0.4 MG DAILY 09/06 1000 AC 09/07 PO 0811 Last 24 Hrs of Lab/Jay Jay Results Last 24 Hrs of Labs/Mics: Laboratory Tests 09/07/17 0620: Anion Gap 6, Estimated GFR > 60, BUN/Creatinine Ratio 48.0 H, CBC w Diff NO MAN DIFF REQ, RBC 4.24, MCV 92.6, MCH 30.3, RDW 13.8, MPV 6.9 L, Gran % 55.7, Lymphocytes % 27.9, Monocytes % 15.7 H, Eosinophils % 0.4, Basophils % 0.3, Absolute Granulocytes 5.0, Absolute Lymphocytes 2.5, Absolute Monocytes 1.4 H, Absolute Eosinophils 0, Absolute Basophils 0, PUBS MCHC 32.8 L Assessment/Plan Assessment: Ms. Murillo is a 72-year-old female with past medical history of bipolar disorder, depression, obesity dependence, mitral valve replacement, COPD on 23 liters home oxygen, HF, question CABG who presents from [facility] with respiratory distress. Assessment and Plan: #Dyspnea multifactoria; Acute Hypoxic Respiratory Failure and Acute on chronic heart failure with preserved ejection fraction: The patient's shortness of breath is likely multifactorial in the setting of her COPD history and cardiac history; she may also have a component of volume overload although her BNP level is not very elevated. She also had leukocytosis with bandemia and lactic acidosis. Her urine is positive for strep pneumonia. Chest x-ray showed bilateral basilar infiltrates consistent with pneumonia. * Monitor fever and WBC, remains afebrile last 24 hours with resolution of leukocytosis * Follow up cultures no growth so far * Pulmonology and cardiology following, recommendations are appreciated * We will continue diuresis with Po lasix 40mg daily alond with K-dur 40meq supplementation * TRC/ oxygen supplementation to maintain sats >92%. * Continue steriod taper (total 8 days) and IV ceftriaxone * CT neck to examine causes stridor such as tracheobronchomalacia, vocal cord dysfunction, was negative except for atypical mildly enlarged right lower paratracheal lymph node of 1.3 cm. If stridor symptoms continue we could give her 1 dose of racemic epinephrine nebulizer therapy #Hypertensive urgency: Patient came in with hypertensive urgency which rapidly resolved.ACS was r/o with serial trops and EKGs. Echocardiogram shows normal biventricular function with an normal bioprosthetic valve * Monitor BP Q4 #Anxiety and bipolar disorder : Continue Klonopin #DVT prophylaxis with enoxaparin #Diet Heart healthy diet #CODE STATUS Full code Problem List: 1. Respiratory failure Pain Ratin Pain Location: n/a Pain Goal: Pain 4 or less Pain Plan: prn Tomorrow's Labs & Rationales: cbc bep cbc bep Pain Ratin Pain Location: n/a Pain Goal: Pain 4 or less Pain Plan: prn Tomorrow's Labs & Rationales: cbc bep
[2017-09-07 08:10] LABS: ABSOLUTE BASOPHIL COUNT 0 /CUMM (0.0-0.2); ABSOLUTE EOSINOPHIL COUNT 0 /CUMM (0.0-0.7); ABSOLUTE LYMPH COUNT 2.5 /CUMM (1.2-3.4); ABSOLUTE MONOCYTE COUNT 1.4 /CUMM (0.10-0.60); BASOPHIL % 0.3 % (0.0-2.0); EOSINOPHIL % 0.4 % (0-5); GRANULOCYTE % 55.7 % (42.2-75.2); HEMATOCRIT 39.3 % (37-47); MEAN CORPUSCULAR HGB 30.3 PG (27.0-31.0); MEAN CORPUSCULAR HGB CONC 32.8 G/DL (33.0-37.0); MEAN CORPUSCULAR VOLUME 92.6 FL (81.0-99.0); MEAN PLATELET VOLUME 6.9 FL (7.4-10.4); PLATELET COUNT 290 /CUMM (130-400); RBC DISTRIBUTION WIDTH 13.8 % (11.5-14.5); RED BLOOD CELL CT 4.24 /CUMM (4.20-5.40)
--- NOTE | 2017-09-07 09:14 | PN- Cardiology ---
Subjective Subjective: Patient states that her breathing continues to be labored but has improved. Review of Systems: Eyes no blurred or double vision Ears no deafness or ringing Nose and throat no recurrent sinusitis Lungs per history of present illness Heart per history of present illness Abdomen no nausea vomiting Musculoskeletal occasional muscle and joint pains Psych no anxiety or depression Neuro without recurrent headache or seizures Endocrine no heat or cold intolerance Objective Vital Signs and I&Os Vital Signs Date Time Temp Pulse Resp B/P B/P Pulse O2 O2 Flow FiO2 Mean Ox Delivery Rate 09/07 0830 97 Nasal 3.0L Cannula 09/07 0812 100 178/100 09/07 0811 100 178/100 09/07 0800 97 Nasal 3.0L Cannula 09/07 0658 97.5 101 20 180/100 97 Nasal 3.0L Cannula 09/07 0000 Nasal 3.0L Cannula 09/06 2216 98.0 100 20 114/70 95 09/06 1702 94 Nasal 3.0L Cannula 09/06 1600 Nasal 3.0L Cannula 09/06 1531 97.2 119 20 100/60 96 Nasal 3.0L Cannula Intake & Output 09/07 1600 09/07 0800 09/07 0000 09/06 1600 09/06 0800 09/06 0000 Intake Total 120 480 430 400 Output Total 444 413 3046 400 1450 Balance -380 280 -1020 -400 -1050 Intake, IV 30 Intake, Oral 120 480 400 400 Output, Urine 974 553 6409 400 1450 Physical Exam: Patient is a well-developed well-nourished female appearing in no acute distress HEENT is unremarkable Neck is supple there is no JVD Lungs diffuse inspiratory and expiratory wheezes with rhonchi bilaterally Heart regular rhythm S1 and S2 are normal no murmurs gallops or rubs Abdomen bowel sounds positive Extremities without edema Current Medications: Current Medications Sig/Thaddeus Start time Last Medication Dose Route Stop Time Status Admin Acetaminophen 650 MG Q6PRN PRN 09/07 0045 AC 09/07 PO 0035 Albuterol Sulfate 3 ML EVERY 4 HRS/AWAKE 09/04 1200 AC 09/07 INH 0828 Albuterol Sulfate 3 ML Q6 PRN 09/04 0845 AC INH Aripiprazole 2 MG DAILY 09/05 1133 AC 09/07 PO 0811 Aspirin Buffered 81 MG DAILY 09/04 1000 AC 09/07 PO 0811 Atorvastatin Calcium 40 MG 1700 09/04 1700 AC 09/06 PO 1622 Ceftriaxone Sodium 1,000 MG DAILY 09/05 1000 AC 09/07 IV 0810 Clonazepam 1 MG BID PRN 09/05 1145 AC 09/07 PO 09/12 1144 0035 Duloxetine HCl 30 MG DAILY 09/04 1000 AC 09/07 PO 0811 Enoxaparin Sodium 40 MG DAILY 09/04 1000 AC 09/07 SC 0811 Ferrous Sulfate 325 MG DAILY 09/05 1134 AC 09/07 PO 0810 Fluticasone 2 PUF BID 09/05 1133 AC 09/07 Propionate INH 0812 Furosemide 40 MG DAILY 09/04 1000 AC 09/07 PO 0810 Gabapentin 400 MG TID 09/05 1135 AC 09/07 PO 0810 Guaifenesin 600 MG Q12 09/04 2200 AC 09/07 PO 0810 Losartan Potassium 12.5 MG DAILY 09/04 1000 AC 09/07 PO 0812 Omeprazole 40 MG DAILY AC 09/06 0700 AC 09/07 PO 0513 Potassium Chloride 40 MEQ ONCE ONE 09/06 1330 DC 09/06 PO 09/06 1331 1428 Potassium Chloride 40 MEQ DAILY 09/05 1114 AC 09/07 PO 0810 Prednisone 40 MG DAILY 09/06 1000 AC 09/07 PO 0810 Tamsulosin HCl 0.4 MG DAILY 09/06 1000 AC 09/07 PO 0811 Results Last 48 Hrs of Labs/Mics: Laboratory Tests 09/07/17 0620: Anion Gap 6, Estimated GFR > 60, BUN/Creatinine Ratio 48.0 H, CBC w Diff NO MAN DIFF REQ, RBC 4.24, MCV 92.6, MCH 30.3, RDW 13.8, MPV 6.9 L, Gran % 55.7, Lymphocytes % 27.9, Monocytes % 15.7 H, Eosinophils % 0.4, Basophils % 0.3, Absolute Granulocytes 5.0, Absolute Lymphocytes 2.5, Absolute Monocytes 1.4 H, Absolute Eosinophils 0, Absolute Basophils 0, PUBS MCHC 32.8 L 09/06/17 0626: Anion Gap 8, Estimated GFR > 60, BUN/Creatinine Ratio 34.3 H, Magnesium 2.1 Assessment/Plan Assessment/Plan 1. Shortness of breath; likely multifactorial 2. COPD on home oxygen 3. Acute on chronic heart failure with preserved ejection fraction 4. Coronary artery disease with prior vein graft to the RCA with bioprosthetic mitral valve for severe MR and left atrial clip in 2016 5. Bipolar disorder 6. PNA Recommendations 1. Continue aggressive pulmonary management 2. Continue antibiotics 3. Continue aspirin losartan and Lasix Continue telemetry? No
--- NOTE | 2017-09-07 10:57 | PN- Pulmonary ---
Subjective HPI/Critical Care Issues: pt seen and examined feelin much better wbc normal 3LNC from [facility] bp elevated Objective Current Medications: Current Medications Sig/Thaddeus Start time Last Medication Dose Route Stop Time Status Admin Acetaminophen 650 MG Q6PRN PRN 09/07 0045 AC 09/07 PO 0035 Albuterol Sulfate 3 ML EVERY 4 HRS/AWAKE 09/04 1200 AC 09/07 INH 0828 Albuterol Sulfate 3 ML Q6 PRN 09/04 0845 AC INH Aripiprazole 2 MG DAILY 09/05 1133 AC 09/07 PO 0811 Aspirin Buffered 81 MG DAILY 09/04 1000 AC 09/07 PO 0811 Atorvastatin Calcium 40 MG 1700 09/04 1700 AC 09/06 PO 1622 Ceftriaxone Sodium 1,000 MG DAILY 09/05 1000 AC 09/07 IV 0810 Clonazepam 1 MG BID PRN 09/05 1145 AC 09/07 PO 09/12 1144 0035 Duloxetine HCl 30 MG DAILY 09/04 1000 AC 09/07 PO 0811 Enoxaparin Sodium 40 MG DAILY 09/04 1000 AC 09/07 SC 0811 Ferrous Sulfate 325 MG DAILY 09/05 1134 AC 09/07 PO 0810 Fluticasone 2 PUF BID 09/05 1133 AC 09/07 Propionate INH 0812 Furosemide 40 MG DAILY 09/04 1000 AC 09/07 PO 0810 Gabapentin 400 MG TID 09/05 1135 AC 09/07 PO 0810 Guaifenesin 600 MG Q12 09/04 2200 AC 09/07 PO 0810 Losartan Potassium 12.5 MG DAILY 09/04 1000 AC 09/07 PO 0812 Omeprazole 40 MG DAILY AC 09/06 0700 AC 09/07 PO 0513 Potassium Chloride 40 MEQ ONCE ONE 09/06 1330 DC 09/06 PO 09/06 1331 1428 Potassium Chloride 40 MEQ DAILY 09/05 1114 AC 09/07 PO 0810 Prednisone 40 MG DAILY 09/07 1000 DC PO Prednisone 40 MG DAILY 09/06 1000 DC 09/07 PO 0810 Tamsulosin HCl 0.4 MG DAILY 09/06 1000 AC 09/07 PO 0811 Vital Signs & I&O Last 24 Hrs of Vitals and I&O: Vital Signs Date Time Temp Pulse Resp B/P B/P Pulse O2 O2 Flow FiO2 Mean Ox Delivery Rate 09/07 0830 97 Nasal 3.0L Cannula 01/02 0812 100 178/100 09/07 0811 100 178/100 09/07 0800 97 Nasal 3.0L Cannula 09/07 0658 97.5 101 20 180/100 97 Nasal 3.0L Cannula 09/07 0000 Nasal 3.0L Cannula 09/06 2216 98.0 100 20 114/70 95 09/06 1702 94 Nasal 3.0L Cannula 09/06 1600 Nasal 3.0L Cannula 09/06 1531 97.2 119 20 100/60 96 Nasal 3.0L Cannula Intake & Output 09/07 1600 09/07 0800 09/07 0000 Intake Total 120 480 Output Total 500 200 Balance -380 280 Intake, Oral 120 480 Number 1 Bowel Movements Output, Urine 500 200 Exam Other Physical Findings: gen awake and alert heent ncat cvs s1, s2 lungs rare rhonchi abd soft bs+ ext without edema Results Last 24 Hrs of Lab Results: Laboratory Tests 09/07/17 0620: Anion Gap 6, Estimated GFR > 60, BUN/Creatinine Ratio 48.0 H, CBC w Diff NO MAN DIFF REQ, RBC 4.24, MCV 92.6, MCH 30.3, RDW 13.8, MPV 6.9 L, Gran % 55.7, Lymphocytes % 27.9, Monocytes % 15.7 H, Eosinophils % 0.4, Basophils % 0.3, Absolute Granulocytes 5.0, Absolute Lymphocytes 2.5, Absolute Monocytes 1.4 H, Absolute Eosinophils 0, Absolute Basophils 0, PUBS MCHC 32.8 L Impression/Plan Impression/Plan Impression/Plan: Impression 72 year old woman * cad, bioprosthetic MV for severe MR, left atrial clip * COPD * acute on chronic chf preserved ef Plan -cont prednisone with a taper -ins/outs, diuresis -trc/nebs -complete abx course as ordered DVT prophylaxis at all times
--- NOTE | 2017-09-07 11:30 | Discharge Summary ---
See Addendum Visit Information Visit Dates Admission Date: 09/04/17 Discharge Date: 09/12/2016 Hospital Course Course Attending Physician: Charis Wiley MD Primary Care Physician: Royal VERONICA,John Arango Hospital Course: Patient is a 72-year-old female with relevant PMH of COPD on 3 liters of oxygen, ex-smoker, mitral valve replacement(2016), history of CHF, presented with chief complaints of shortness of breath since last 5 days. ED course -at the time of admission temperature was 99.9, pulse 143, respiratory rate 34, blood pressure 188/118, SPO2 85% on room air. Blood workup showed WBC 14.7, hemoglobin 13.2, hematocrit 39.8, platelets 329, the granulocyte 82.1, band neutrophils 7, serum sodium 141, potassium 4.3, anion gap 13, BUN 19, creatinine 0.7, glucose 107, lactic acid 2.5, calcium 9.8, AST/ALT 90/22, alkaline phosphatase 79, troponin 0.01, proBNP 363, albumin 4.2, PT/INR 10 point 1/0.96. Chest x-ray showed mild interstitial pulmonary edema. On examination, patient was conscious, cooperative, oriented to time, place and person, breathing comfortably BiPAP mask, lung shows bilateral wheezing and decreased air entry, Heart S1, S2 normal, murmure present, abdomen was soft, bilateral mild lower leg pedal edema. She was given IV methylprednisolone 125 mgs, Lasix 20 mgs, one dose of inj ceftazidime and vancomycin, and kept on BiPAP to help her in breathing. Initial ABG showed pH 7.42, PCO2 43, PO2 144, bicarbonate 27. She responded to BiPAP witn IPAP18/6;FiO2 40%,she maintained her saturation of 90%. It was decided to admit the patient to telemetry floor for further evaluation and the management. Acute hypoxic respiratory failure secondary to streptococcal pneumonia leading to CHF/COPD exacerbation - We admitted the patient to telemetry floor.We obtained pulmonology and cardiology consult.CXR showed Linear atelectasis within the right midlung. CTA confirmed linear scar/subsegmental atelectasis in the lingula. There was no evidence of pulmonary embolus or thoracic aortic aneurysm or dissection.We started on ceftazidime and vancomycin, TRC/Neb. Later urine found to be positive for streptococcal pneumonia antigen. We stopped ceftazidime and vancomycin, and continued her on injection ceftriaxone (09/05 - 09/08).Urine and blood cultures did not show any growth of bacteria.We discharge her on tab Augmentin 875 mgs twice a day for 5 days.She was also given inj methylprednisolone 60 mg followed by tab prednisone with slow taper. Acute on chronic heart failure with HFpEF - CXR was showing mild interstitial pulmonary edema.We gave low dose of Lasix, Strict intake output charting and daily weight measurement. We continued her on tab Lasix 40 mgs daily.We obtained cardiology consult. Advised Echocardiogram, showed LVEF more than 55%, mild left atrial dilatation, bioprosthetic mitral valve with mean gradient of 6, mild pulmonary hypertension. Stridor - Patient was also having inspiratory and expiratory stridor. Neck CT was done, which did not show any mass/adenopathy in neck or tracheal abnormality. There wasn't a typical likely in large right lower paratracheal lymph node enlargement is a 1.3 centimeters. The only problem today we'll start History of bipolar disorder with severe depression continued duloxetine as before History of Bioprosthetic mitral valve replacement for Severe MR, Left atrial Clip (2016) and single vein CABG to RCA - We followed cardiology recommendation and continued on Aspirin, lasix, Atorvastatin 40mg. Chronic back pain,nonfunctioning stimulator in the back, history of oxycodone/ Percocet dependence, off medication since September 2015 - Advised to avoid opioid and benzodiazepine. Allergies: Coded Allergies: Opioids - Morphine Analogues (Intermediate, BAD RASHES 09/04/17) Opioids-Meperidine and Related (Intermediate, BAG RASHES 09/04/17) oxycodone (Intermediate, BAD RASHES 09/04/17) Pertinent Lab Results: SERVICE DATE: 09/04/17- EXAM TYPE: CARD - ECHOCARDIOGRAM CONCLUSIONS Technically difficult study. Normal global left ventricular size, wall thickness, systolic function with no obvious regional wall motion abnormalities. Left ventricular ejection fraction is estimated at > 55 %. Normal right ventricular size and function. Mild left atrial dilatation. Bioprosthetic mitral valve (mean gradient 6 mmHg). Mild pulmonary hypertension. No pericardial effusion. SERVICE DATE: 09/04/17-236 EXAM TYPE: RAD - XRY-PORTABLE CHEST XRAY IMPRESSION: Imaging findings favor mild interstitial pulmonary edema. Linear atelectasis within the right midlung versus a small amount of fluid within the minor fissure. SERVICE DATE: 09/04/17 EXAM TYPE: CAT - CTA CHEST-PULMONARY EMBOLISM IMPRESSION: 1. No pulmonary embolus or thoracic aortic aneurysm or dissection is seen. 2. There is mild to moderate airspace disease at the posterior bases, consistent with acute pneumonia versus atelectasis. Please correlate clinically. 3. There is linear scar/subsegmental atelectasis in the lingula. VTE: negative SERVICE DATE: 09/06/17- EXAM TYPE: CAT - CT NECK W IV CONTRAST IMPRESSION: 1. No mass or suspicious adenopathy in the neck. 2. Atypical mildly enlarged right lower paratracheal lymph node measuring 1.3 cm. 3. No tracheal abnormality identified. SERVICE DATE: 09/08/17- EXAM TYPE: RAD - XRY-CHEST XRAY, TWO VIEWS IMPRESSION: 1. Central vascular congestion is seen without overt pulmonary edema. 2. Platelike areas of atelectasis around the the right minor fissure and the left major fissure. 3. Large retrocardiac hiatal hernia. Disposition Summary Disposition Principal Diagnosis: Streptococcal pneumonia leading to acute exacerbation of COPD Additional Diagnosis: Chronic back pain , not on pain medication since last 1 year COPD on 3 liters of home oxygen, ex-smoker, quit 1 year ago Bipolar disorder with severe depression Mitral valve replacement(2016) history of CHF History of hyponatremia History of recurrent C. difficile History of MRSA UTI Discharge Disposition: SNF Discharge Instructions General Discharge Information Code Status: Full Code Patient's Diet: Heart healthy diet Patient's Activity: As tolerated Follow-Up Instructions/Appts: Please follow-up with your PCP within a week of discharge Please follow-up with you eastern philosophy professor with in a week of discharge Please take the medication as advised Please follow-up with your esol teacher within a week of discharge Medications at Discharge Discharge Medications: Stop taking the following medications: Prednisone (Prednisone) 50 MG TABLET ORAL DAILY Continue taking these medications: Aripiprazole (Abilify) 2 MG TABLET 1 Tablet ORAL DAILY Comments: Last Taken:09/12/17 Time:1030 Aspirin (Ecotrin*) 81 MG TABLET. 1 Tablet ORAL DAILY Comments: Last Taken:09/12/17 Time:1030 Duloxetine HCl (Duloxetine HCl) 30 MG CAPSULE. 1 Capsule ORAL DAILY Comments: Last Taken:09/12/17 Time:1030 Fluticasone Propionate (24 Hour Allergy Relief) 50 MCG/ACTUATION SPRAY.SUSP Comments: Last Taken:09/11/17 Time:2130 Furosemide (Furosemide) 20 MG TABLET 60 Milligram Instructions: every other day alternating with 40mg Comments: not given this hospital stay Losartan Potassium (Losartan Potassium) 25 MG TABLET 12.5 Milligram Comments: Last Taken:09/12/17 Time:1030 Pravastatin Sodium (Pravachol) 40 MG TABLET 1 Tablet ORAL DAILY Omeprazole Magnesium (Prilosec Otc) 20 MG TABLET. 1 Tablet ORAL DAILY Comments: Last Taken:09/12/17 Time:0630 Albuterol Sulfate (Albuterol Sulfate) 0.63 MG/3 ML VIAL.NEB 1 Vial Inhale Solution 4 TIMES A DAY Comments: Last Taken:09/12/17 Time:1111 Furosemide (Lasix) 40 MG TABLET 1 Tablet ORAL DAILY Instructions: every other day alternating with 60mg Comments: Last Taken:09/12/17 Time:1030 Tamsulosin HCl (Flomax) 0.4 MG CAP.ER.24H Comments: Last Taken:09/12/17 Time:1030 Clonazepam (Klonopin) 1 MG TABLET 1 Tablet ORAL 2 x Daily as needed as needed for MOOD Comments: Last Taken:09/11/17 Time:2135 Ferrous Sulfate (Ferrous Sulfate) 325 MG (65 MG IRON) TABLET 1 Tablet ORAL TWICE DAILY Comments: Last Taken:09/12/17 Time:1030 Potassium Chloride (Potassium Chloride) 20 MEQ TAB.ER.PRT 1 Tablet ORAL DAILY Comments: Last Taken:09/12/17 Time:1030 Gabapentin (Gabapentin) 400 MG CAPSULE 1 Capsule ORAL THREE TIMES DAILY Comments: Last Taken:09/12/17 Time:1030 Start taking the following new medications: Prednisone (Prednisone) 10 MG TABLET 1 Tablet ORAL DAILY Qty = 26 No Refills Comments: 09/13-: Take 4 tablets daily 09/15-: Take 3 tablets daily 09/18-: Take 2 tablets daily 09/21-; take 1 table daily Copies To: Royal VERONICA,John Arango Attending MD Review Statement Documenting Attending: Charis Wiley MD
[2017-09-07 11:50] VITALS: BP 122/80
--- NOTE | 2017-09-07 13:51 | Patient Discharge Instructions ---
Discharge Instructions General Discharge Information You were seen/treated for: Acute hypoxic respiratory failure, and streptococcal pneumonia needed antibiotic therapy and steroids. Special Instructions: Please follow-up with PCP within one week of discharge Please follow-up with your pre owned sales manager within 1 week of discharge Please follow-up with your tractor engine assembler within 1 week discharge Diet Recommended Diet: Heart Healthy Activity Activity Self Limited: Yes Acute Coronary Syndrome Inclusion Criteria At DC or during hospital stay patient has or had the following: ACS DIAGNOSIS No Discharge Core Measures Meds if any: Prescribed or Continued at Discharge Meds if any: NOT Prescribed or Continued at Discharge Congestive Heart Failure Inclusion Criteria At DC or during hospital stay patient has or had the following: CHF DIAGNOSIS No Discharge Core Measures Meds if any: Prescribed or Continued at Discharge Meds if any: NOT Prescribed or Continued at Discharge Cerebrovascular accident Inclusion Criteria At DC or during hospital stay patient has or had the following: CVA/TIA Diagnosis No Discharge Core Measures Meds if any: Prescribed or Continued at Discharge Meds if any: NOT Prescribed or Continued at Discharge Venous thromboembolism Inclusion Criteria VTE Diagnosis No VTE Type NONE VTE Confirmed by (Test) NONE Discharge Core Measures - Per Current guidelines, there needs to be overlap - treatment for the first 5 days of Warfarin therapy. - If discharged on Warfarin prior to 5 days of - overlap therapy, the patient will need to be - assessed for post discharge needs including - *Post discharge parental anticoagulation - *Warfarin and/or parental anticoagulation education - *Follow up date to check INR post discharge At least 5 days overlap therapy as Inpatient No Meds if any: Prescribed or Continued at Discharge Note: Overlap Therapy is Warfarin and Anticoagulant Meds if any: NOT Prescribed or Continued at Discharge
[2017-09-07 14:38] VITALS: BP 130/60
[2017-09-07 22:08] VITALS: BP 148/72
[2017-09-07 23:01] VITALS: BP 130/84
[2017-09-08 06:43] VITALS: BP 130/82
[2017-09-08] MEDS ORDERED: PREDNISONE5 M1 PO (07:53)
[2017-09-08] MEDS ORDERED: AUGMENTIN 875-1 EACH PO ×2 (07:57→09:48)
--- NOTE | 2017-09-08 08:53 | Transfer of Care Summary ---
See Addendum Hospital Course Course Hospital Course: Ms. Murillo is a 72-year-old female with past medical history of bipolar disorder, depression, obesity dependence, mitral valve replacement, COPD on 23 liters home oxygen, HF, question CABG who presents from [facility] with respiratory distress. -On presentation, vital signs were T 99.9, HR 143, RR 34, BP 188/118, saturating 85% on room air. -Laboratories were positive for white blood cell count 14.7, 76 neutrophils, 7 bands, hemoglobin 13.2, chloride 96, carbon dioxide 33, BUN 19, creatinine 0.7, glucose 107, lactic acid 2.5, calcium 9.8, negative LFTs, troponin 0.01, BNP 363 , INR 0.96. EKG was normal. Chest x-ray showed mild interstitial edema. She was treated with vancomycin, ceftazidine, nitroglycerin, methylprednisone in the emergency room. The patient was admitted to telemetry floor and was treated and evaluated for following conditions #Dyspnea multifactoria; Acute Hypoxic Respiratory Failure and Acute on chronic heart failure with preserved ejection fraction: The patient's shortness of breath is likely multifactorial in the setting of her COPD history and cardiac history; she may also have a component of volume overload although her BNP level is not very elevated. She also had leukocytosis with bandemia and lactic acidosis. Her urine is positive for strep pneumonia. Chest x-ray showed bilateral basilar infiltrates consistent with pneumonia. Follow-up cultures show no growth so far. Patient is being followed by pulmonology and cardiology. For now we are monitoring fever and WBC curve patient remains afebrile with resolution of leukocytosis. Patient was being treated with IV ceftriaxone for probable pneumonia (switch to oral Augmentin on discharge) and steroid taper for underlying COPD. We're also continuing with gentle diuresis with by mouth Lasix 40 mg along with daily K-dur 40meq supplementation. * Patient is an anticipated discharge for today CMR and W10 is ready. #Stridor : CT neck to examine causes stridor such as tracheobronchomalacia, vocal cord dysfunction, was negative except for atypical mildly enlarged right lower paratracheal lymph node of 1.3 cm. * If stridor symptoms continue we could give her 1 dose of racemic epinephrine nebulizer therapy #Hypertensive urgency: Patient came in with hypertensive urgency which rapidly resolved.ACS was r/o with serial trops and EKGs. Echocardiogram shows normal biventricular function with an normal bioprosthetic valve #DVT prophylaxis with enoxaparin/Diet Heart healthy diet/CODE STATUS Full code Assessment/Plan: see hospital course Attending MD Review Statement Documenting Attending: Inez VERONICA,Charis
[2017-09-08] MEDS ORDERED: PREDNISONE10 M2 PO ×2 (09:47→16:08)
--- NOTE | 2017-09-08 09:54 | PN- Housestaff ---
Jatin VERONICA,Ruchi 09/08/17 0952: Subjective Follow-up For: Dyspnea Tele-Events Since Last Visit: Transferred to [facility] Subjective: Patient seen and examined. No overnight acute events. Offers no complaints. Will be switched to oral Augmentin today. Review of Systems Constitutional: Reports: see HPI. Objective Last 24 Hrs of Vital Signs/I&O Vital Signs Date Time Temp Pulse Resp B/P B/P Pulse O2 O2 Flow FiO2 Mean Ox Delivery Rate 09/08 0928 96 Nasal 3.0L Cannula 09/08 0815 98.2 98 20 130/82 09/08 0813 98.2 98 20 130/82 09/08 0800 Nasal 3.0L Cannula 09/08 0643 98.2 98 20 130/82 99 Nasal 3.0L Cannula 09/08 0000 Nasal 3.0L Cannula 09/07 2301 98.1 108 20 130/84 97 09/07 2208 97.8 98 26 148/72 96 09/07 1629 94 Nasal 2.0L Cannula 09/07 1600 94 Nasal 3.0L Cannula 09/07 1438 97.4 113 20 130/60 97 09/07 1150 122/80 Intake & Output 09/08 1600 09/08 0800 09/08 0000 Intake Total 360 120 Output Total 300 800 Balance 60 -680 Intake, Oral 360 120 Output, Urine 300 800 Physical Exam General Appearance: Alert, Oriented X3 Lungs: inspiratory and expiartory wheezes Current Medications: Current Medications Sig/Thaddeus Start time Last Medication Dose Route Stop Time Status Admin Acetaminophen 650 MG Q6PRN PRN 09/07 0045 AC 09/07 PO 0035 Albuterol Sulfate 3 ML EVERY 4 HRS/AWAKE 09/04 1200 AC 09/08 INH 0924 Albuterol Sulfate 3 ML Q6 PRN 09/04 0845 AC INH Amoxicillin/ 875 MG Q12 09/08 2200 UNVr Clavulanate Potassium PO Aripiprazole 2 MG DAILY 09/05 1133 AC 09/08 PO 0813 Aspirin Buffered 81 MG DAILY 09/04 1000 AC 09/08 PO 0813 Atorvastatin Calcium 40 MG 1700 09/04 1700 AC 09/07 PO 1547 Ceftriaxone Sodium 1,000 MG DAILY 09/05 1000 DC 09/08 IV 0814 Clonazepam 1 MG BID PRN 09/05 1145 AC 09/08 PO 09/12 1144 0033 Duloxetine HCl 30 MG DAILY 09/04 1000 AC 09/08 PO 0813 Enoxaparin Sodium 40 MG DAILY 09/04 1000 AC 09/08 SC 0815 Ferrous Sulfate 325 MG DAILY 09/05 1134 AC 09/08 PO 0813 Fluticasone 2 PUF BID 09/05 1133 AC 09/08 Propionate INH 0815 Furosemide 40 MG DAILY 09/04 1000 AC 09/08 PO 0814 Gabapentin 400 MG TID 09/05 1135 AC 09/08 PO 0814 Guaifenesin 600 MG Q12 09/04 2200 AC 09/08 PO 0814 Losartan Potassium 12.5 MG DAILY 09/04 1000 AC 09/08 PO 0815 Omeprazole 40 MG DAILY AC 09/06 0700 AC 09/08 PO 0537 Potassium Chloride 40 MEQ DAILY 09/05 1114 AC 09/08 PO 0814 Prednisone 5 MG DAILY 09/14 1000 AC PO 09/16 0959 Prednisone 10 MG DAILY 09/12 1000 AC PO 09/14 0959 Prednisone 20 MG DAILY 09/10 1000 AC PO 09/12 0959 Prednisone 30 MG DAILY 09/08 1000 CAN PO 09/16 0959 Prednisone 30 MG DAILY 09/08 1000 AC 09/08 PO 09/10 0959 0814 Prednisone 40 MG DAILY 09/07 1000 DC PO Tamsulosin HCl 0.4 MG DAILY 09/06 1000 AC 09/08 PO 0813 Last 24 Hrs of Lab/Jay Jay Results Last 24 Hrs of Labs/Mics: Laboratory Tests 09/08/17 0809: Anion Gap 10, Estimated GFR > 60, BUN/Creatinine Ratio 30.0 H, CBC w Diff Pending, WBC Pending, RBC Pending, Hgb Pending, Hct Pending, MCV Pending, MCH Pending, RDW Pending, Plt Count Pending, MPV Pending, PUBS MCHC Pending Assessment/Plan Assessment: Ms. Murillo is a 72-year-old female with past medical history of bipolar disorder, depression, obesity dependence, mitral valve replacement, COPD on 23 liters home oxygen, HF, question CABG who presents from [facility] with respiratory distress. Assessment and Plan: #Dyspnea multifactoria; Acute Hypoxic Respiratory Failure and Acute on chronic heart failure with preserved ejection fraction: The patient's shortness of breath is likely multifactorial in the setting of her COPD history and cardiac history; she may also have a component of volume overload although her BNP level is not very elevated. She also had leukocytosis with bandemia and lactic acidosis. Her urine is positive for strep pneumonia. Chest x-ray showed bilateral basilar infiltrates consistent with pneumonia. Follow-up cultures show no growth so far. Patient is being followed by pulmonology and cardiology. For now we are monitoring fever and WBC curve patient remains afebrile with resolution of leukocytosis. Patient was being treated with IV ceftriaxone for probable pneumonia (will switch to oral Augmentin today) and steroid taper for underlying COPD. We're also continuing with gentle diuresis with by mouth Lasix 40 mg along with daily K-dur 40meq supplementation. #Stridor : CT neck to examine causes stridor such as tracheobronchomalacia, vocal cord dysfunction, was negative except for atypical mildly enlarged right lower paratracheal lymph node of 1.3 cm. * If stridor symptoms continue we could give her 1 dose of racemic epi nebulizer therapy #Hypertensive urgency: Patient came in with hypertensive urgency which rapidly resolved.ACS was r/o with serial trops and EKGs. Echocardiogram shows normal biventricular function with an normal bioprosthetic valve #Neurogenic bladder patient has history of neurogenic bladder on chronic aguayo which was renewed when she presented to ED on 09/04 #Anxiety and bipolar disorder : Continue Klonopin #DVT prophylaxis with enoxaparin #Diet Heart healthy diet #CODE STATUS Full code Problem List: 1. COPD with acute exacerbation Pain Ratin Pain Location: n/a Pain Goal: Pain 4 or less Pain Plan: prn Tomorrow's Labs & Rationales: none Charis Wiley MD 09/08/17 1302: Attending MD Review Statement Attending Statement Attending MD Statement: examined this patient, discuss w/resident/PA/DIRECTOR OF RECRUITING, agreed w/resident/PA/DIRECTOR OF RECRUITING, reviewed EMR data (avail), discussed with nursing, discussed with case mgmt, amended to note Attending Assessment/Plan: Patient seen and examined.Transferred from the telemetry service to the general medical floor overnight. She was scheduled for discharge this morning however nursing staff reports that she had significantly audible wheezing. On examination patient is resting comfortably. She is on a baseline oxygen supplementation. Auscultation however she does have diffuse rhonchi bilaterally. She shows no clinical evidence of volume overload. She has no jugular venous distention. No significant peripheral edema. Recommendations: -Obtain swallow evaluation to rule out aspiration. -Repeat chest x-ray today. -Continue bronchodilator therapy. Continue current regimen of oral steroids. -Continue her home diuretic therapy of Lasix 40 mg orally daily. -Hold of discharge today pending evaluation of chest x-ray, swallow evaluation and improvement in her respiratory status. -Earlier in the week there was concern that patient was having stridor. Chest CT was obtained that showed no tracheal abnormality. She currently has no evidence of stridor on examination.
[2017-09-08 10:12] LABS: ABSOLUTE BASOPHIL COUNT 0 /CUMM (0.0-0.2); ABSOLUTE EOSINOPHIL COUNT 0.3 /CUMM (0.0-0.7); ABSOLUTE GRANULOCYTE CT 6.6 /CUMM (1.4-6.5); ABSOLUTE LYMPH COUNT 3.7 /CUMM (1.2-3.4); ABSOLUTE MONOCYTE COUNT 1.2 /CUMM (0.10-0.60); BASOPHIL % 0.2 % (0.0-2.0); EOSINOPHIL % 2.1 % (0-5); GRANULOCYTE % 56.1 % (42.2-75.2); MEAN CORPUSCULAR HGB 29.8 PG (27.0-31.0); MEAN CORPUSCULAR HGB CONC 32.3 G/DL (33.0-37.0); MEAN CORPUSCULAR VOLUME 92.2 FL (81.0-99.0); MEAN PLATELET VOLUME 6.8 FL (7.4-10.4); PLATELET COUNT 356 /CUMM (130-400); RBC DISTRIBUTION WIDTH 13.2 % (11.5-14.5); RED BLOOD CELL CT 4.55 /CUMM (4.20-5.40); WHITE BLOOD CELL COUNT 11.8 /CUMM (4.8-10.8)
--- NOTE | 2017-09-08 12:09 | PN- Pulmonary ---
Subjective HPI/Critical Care Issues: pt seen and examined transferred to [facility] feels better overall but dyspneic overnight Objective Current Medications: Current Medications Sig/Thaddeus Start time Last Medication Dose Route Stop Time Status Admin Acetaminophen 650 MG Q6PRN PRN 09/07 0045 AC 09/07 PO 0035 Albuterol Sulfate 3 ML EVERY 4 HRS/AWAKE 09/04 1200 AC 09/08 INH 0924 Albuterol Sulfate 3 ML Q6 PRN 09/04 0845 AC INH Amoxicillin/ 875 MG Q12 09/08 2200 AC Clavulanate Potassium PO Aripiprazole 2 MG DAILY 09/05 1133 AC 09/08 PO 0813 Aspirin Buffered 81 MG DAILY 09/04 1000 AC 09/08 PO 0813 Atorvastatin Calcium 40 MG 1700 09/04 1700 AC 09/07 PO 1547 Ceftriaxone Sodium 1,000 MG DAILY 09/05 1000 DC 09/08 IV 0814 Clonazepam 1 MG BID PRN 09/05 1145 AC 09/08 PO 09/12 1144 0033 Duloxetine HCl 30 MG DAILY 09/04 1000 AC 09/08 PO 0813 Enoxaparin Sodium 40 MG DAILY 09/04 1000 AC 09/08 SC 0815 Ferrous Sulfate 325 MG DAILY 09/05 1134 AC 09/08 PO 0813 Fluticasone 2 PUF BID 09/05 1133 AC 09/08 Propionate INH 0815 Furosemide 40 MG DAILY 09/04 1000 AC 09/08 PO 0814 Gabapentin 400 MG TID 09/05 1135 AC 09/08 PO 0814 Guaifenesin 600 MG Q12 09/04 2200 AC 09/08 PO 0814 Losartan Potassium 12.5 MG DAILY 09/04 1000 AC 09/08 PO 0815 Omeprazole 40 MG DAILY AC 09/06 0700 AC 09/08 PO 0537 Potassium Chloride 40 MEQ DAILY 09/05 1114 AC 09/08 PO 0814 Prednisone 5 MG DAILY 09/14 1000 AC PO 09/16 0959 Prednisone 10 MG DAILY 09/12 1000 AC PO 09/14 0959 Prednisone 20 MG DAILY 09/10 1000 AC PO 09/12 0959 Prednisone 30 MG DAILY 09/08 1000 AC 09/08 PO 09/10 0959 0814 Tamsulosin HCl 0.4 MG DAILY 09/06 1000 AC 09/08 PO 0813 Vital Signs & I&O Last 24 Hrs of Vitals and I&O: Vital Signs Date Time Temp Pulse Resp B/P B/P Pulse O2 O2 Flow FiO2 Mean Ox Delivery Rate 09/08 0928 96 Nasal 3.0L Cannula 09/08 0815 98.2 98 20 130/82 09/08 0813 98.2 98 20 130/82 09/08 0800 Nasal 3.0L Cannula 09/08 0643 98.2 98 20 130/82 99 Nasal 3.0L Cannula 09/08 0000 Nasal 3.0L Cannula 09/07 2301 98.1 108 20 130/84 97 09/07 2208 97.8 98 26 148/72 96 09/07 1629 94 Nasal 2.0L Cannula 09/07 1600 94 Nasal 3.0L Cannula 09/07 1438 97.4 113 20 130/60 97 Intake & Output 09/08 1600 09/08 0800 09/08 0000 Intake Total 360 120 Output Total 300 800 Balance 60 -680 Intake, Oral 360 120 Output, Urine 300 800 Exam Other Physical Findings: gen awake and alert heent ncat cvs s1, s2 lungs rare rhonchi abd soft bs+ ext without edema Results Last 24 Hrs of Lab Results: Laboratory Tests 09/08/17 0809: Anion Gap 10, Estimated GFR > 60, BUN/Creatinine Ratio 30.0 H, CBC w Diff NO MAN DIFF REQ, RBC 4.55, MCV 92.2, MCH 29.8, RDW 13.2, MPV 6.8 L, Gran % 56.1, Lymphocytes % 31.1, Monocytes % 10.5 H, Eosinophils % 2.1, Basophils % 0.2, Absolute Granulocytes 6.6 H, Absolute Lymphocytes 3.7 H, Absolute Monocytes 1.2 H, Absolute Eosinophils 0.3, Absolute Basophils 0, PUBS MCHC 32.3 L Impression/Plan Impression/Plan Impression/Plan: Impression 72 year old woman * cad, bioprosthetic MV for severe MR, left atrial clip * COPD * acute on chronic chf preserved ef Plan -check CXR today -cont prednisone with a taper -ins/outs, diuresis is recommended, f/u cardiology recs -trc/nebs -complete abx course as ordered DVT prophylaxis at all times
[2017-09-08 14:36] VITALS: BP 114/60
--- NOTE | 2017-09-08 15:35 | PN- Cardiology ---
Subjective Subjective: The patient is awake, alert The events of the last 24 hours as well as telemetry were reviewed. Review of Systems: The review of systems is negative for chest pains, palpitations nor lightheadedness. The remainder of the 14 point review of systems is noncontributory with the exception of above. Objective Vital Signs and I&Os Vital Signs Date Time Temp Pulse Resp B/P B/P Pulse O2 O2 Flow FiO2 Mean Ox Delivery Rate 09/08 1436 98.0 76 20 114/60 97 Nasal 3.0L Cannula 09/08 1348 94 Nasal 3.0L Cannula 09/08 0928 96 Nasal 3.0L Cannula 09/08 0815 98.2 98 20 130/82 09/08 0813 98.2 98 20 130/82 09/08 0800 Nasal 3.0L Cannula 09/08 0643 98.2 98 20 130/82 99 Nasal 3.0L Cannula 09/08 0000 Nasal 3.0L Cannula 09/07 2301 98.1 108 20 130/84 97 09/07 2208 97.8 98 26 148/72 96 09/07 1629 94 Nasal 2.0L Cannula 09/07 1600 94 Nasal 3.0L Cannula Intake & Output 09/08 1600 09/08 0800 09/08 0000 09/07 1600 09/07 0800 09/07 0000 Intake Total 800 360 120 610 120 480 Output Total 1000 245 263 9459 500 200 Balance -200 60 -680 -390 -380 280 Intake, IV 10 Intake, Oral 800 360 120 600 120 480 Number 1 2 Bowel Movements Output, Urine 1000 943 151 0719 500 200 Patient 145 lb Weight Physical Exam: General: Nontoxic, no apparent distress. HEENT: Sclera and conjunctiva within normal limits, without xanthelasmas. Neck: Carotids 2+ without bruits. Respiratory: Scattered expiratory wheezes, air movement is good, without accessory respiratory muscle use. Heart: Regular rate and rhythm, without murmurs, without JVD. Abdomen: Soft, nontender, no masses, normoactive bowel sounds. Extremities: Without clubbing, cyanosis, without edema. Neuro: Nonfocal exam, strength, 5 out of 5 Skin: Within normal limits without lesions. Psych: Mood and affect: Normal Current Medications: Current Medications Sig/Thaddeus Start time Last Medication Dose Route Stop Time Status Admin Acetaminophen 650 MG Q6PRN PRN 09/07 0045 AC 09/07 PO 0035 Albuterol Sulfate 3 ML EVERY 4 HRS/AWAKE 09/04 1200 AC 09/08 INH 1343 Albuterol Sulfate 3 ML Q6 PRN 09/04 0845 AC INH Amoxicillin/ 875 MG Q12 09/08 2200 AC Clavulanate Potassium PO Aripiprazole 2 MG DAILY 09/05 1133 AC 09/08 PO 0813 Aspirin Buffered 81 MG DAILY 09/04 1000 AC 09/08 PO 0813 Atorvastatin Calcium 40 MG 1700 09/04 1700 AC 09/07 PO 1547 Ceftriaxone Sodium 1,000 MG DAILY 09/05 1000 DC 09/08 IV 0814 Clonazepam 1 MG BID PRN 09/05 1145 AC 09/08 PO 09/12 1144 0033 Duloxetine HCl 30 MG DAILY 09/04 1000 AC 09/08 PO 0813 Enoxaparin Sodium 40 MG DAILY 09/04 1000 AC 09/08 SC 0815 Ferrous Sulfate 325 MG DAILY 09/05 1134 AC 09/08 PO 0813 Fluticasone 2 PUF BID 09/05 1133 AC 09/08 Propionate INH 0815 Furosemide 40 MG DAILY 09/04 1000 AC 09/08 PO 0814 Gabapentin 400 MG TID 09/05 1135 AC 09/08 PO 0814 Guaifenesin 600 MG Q12 09/04 2200 AC 09/08 PO 0814 Losartan Potassium 12.5 MG DAILY 09/04 1000 AC 09/08 PO 0815 Omeprazole 40 MG DAILY AC 09/06 0700 AC 09/08 PO 0537 Potassium Chloride 40 MEQ DAILY 09/05 1114 AC 09/08 PO 0814 Prednisone 5 MG DAILY 09/14 1000 AC PO 09/16 0959 Prednisone 10 MG DAILY 09/12 1000 AC PO 09/14 0959 Prednisone 20 MG DAILY 09/10 1000 AC PO 09/12 0959 Prednisone 30 MG DAILY 09/08 1000 AC 09/08 PO 09/10 0959 0814 Tamsulosin HCl 0.4 MG DAILY 09/06 1000 AC 09/08 PO 0813 Results Last 48 Hrs of Labs/Mics: Laboratory Tests 09/08/17 0809: Anion Gap 10, Estimated GFR > 60, BUN/Creatinine Ratio 30.0 H, CBC w Diff NO MAN DIFF REQ, RBC 4.55, MCV 92.2, MCH 29.8, RDW 13.2, MPV 6.8 L, Gran % 56.1, Lymphocytes % 31.1, Monocytes % 10.5 H, Eosinophils % 2.1, Basophils % 0.2, Absolute Granulocytes 6.6 H, Absolute Lymphocytes 3.7 H, Absolute Monocytes 1.2 H, Absolute Eosinophils 0.3, Absolute Basophils 0, PUBS MCHC 32.3 L 09/07/17 0620: Anion Gap 6, Estimated GFR > 60, BUN/Creatinine Ratio 48.0 H, CBC w Diff NO MAN DIFF REQ, RBC 4.24, MCV 92.6, MCH 30.3, RDW 13.8, MPV 6.9 L, Gran % 55.7, Lymphocytes % 27.9, Monocytes % 15.7 H, Eosinophils % 0.4, Basophils % 0.3, Absolute Granulocytes 5.0, Absolute Lymphocytes 2.5, Absolute Monocytes 1.4 H, Absolute Eosinophils 0, Absolute Basophils 0, PUBS MCHC 32.8 L Assessment/Plan Assessment/Plan 1. Shortness of breath; likely multifactorial 2. COPD on home oxygen 3. chronic heart failure with preserved ejection fraction 4. Coronary artery disease with prior vein graft to the RCA with bioprosthetic mitral valve for severe MR and left atrial clip in 2016 5. Bipolar disorder 6. PNA The patient currently appears euvolemic and we will try to maintain an overall fluid balance. As she is hyponatremic, fluid restriction should be maintained. We will continue the remainder of her current cardiac regimen. Continue telemetry? No
--- NOTE | 2017-09-08 15:40 | RADIOLOGY REPORT ---
EXAMINATION: XR CHEST CLINICAL INFORMATION: Shortness of breath. COPD with pneumonia. Check for improvement in pulmonary edema. COMPARISON: Chest x-ray dated 09/04/2017. CT scan of the chest dated 09/04/2017. TECHNIQUE: AP semierect and lateral views of the chest were obtained. FINDINGS: The patient is status post median sternotomy and mitral annular repair. Left atrial appendage clip is seen. 2. Neurostimulator Electrodes are seen posteriorly in the mid thoracic canal region. The cardiac mediastinal silhouette is within normal limits in size. Large retrocardiac hiatal hernia is seen. There is some thickening seen in the right minor fissure and in the left major fissure, shown on prior CT scan to represent platelike atelectatic changes paralleling the fissures. Mild central vascular congestion is seen. No evidence of pulmonary edema, focal consolidation, or pneumothorax. Is osteopenia is noted with multiple severe compression deformities in the thoracic spine. IMPRESSION: 1. Central vascular congestion is seen without overt pulmonary edema. 2. Platelike areas of atelectasis around the the right minor fissure and the left major fissure. 3. Large retrocardiac hiatal hernia.
[2017-09-08 22:55] VITALS: BP 132/80
[2017-09-09 06:30] VITALS: BP 140/78
--- NOTE | 2017-09-09 08:04 | PN- Housestaff ---
Tracy Webb 09/09/17 0756: Subjective Follow-up For: Dyspnea Subjective: No complaint. Feeling geneally improved. Still have a bit wheeze per patient but generally improved. Acknowledged that she might be discharged to SNF today, with home O2 or 2L. Patient was breathing comfortably under 2LNC, no specific complaint. Review of Systems Constitutional: Reports: see HPI. Objective Last 24 Hrs of Vital Signs/I&O Vital Signs Date Time Temp Pulse Resp B/P B/P Pulse O2 O2 Flow FiO2 Mean Ox Delivery Rate 09/09 0630 98.4 88 20 140/78 95 Nasal Cannula 09/09 0000 Nasal 2.0L Cannula 09/08 2255 97.8 95 22 132/80 97 Nasal Cannula 09/08 1730 98 Nasal 3.0L Cannula 09/08 1436 98.0 76 20 114/60 97 Nasal 3.0L Cannula 09/08 1348 94 Nasal 3.0L Cannula 09/08 0928 96 Nasal 3.0L Cannula 09/08 0815 98.2 98 20 130/82 09/08 0813 98.2 98 20 130/82 09/08 0800 Nasal 3.0L Cannula Intake & Output 09/09 0800 09/09 0000 09/08 1600 Intake Total 240 240 800 Output Total 857 095 0647 Balance -10 -235 -200 Intake, Oral 240 240 800 Number 0 1 Bowel Movements Output, Urine 576 987 2217 Patient 65.771 kg Weight Physical Exam General Appearance: Alert, Oriented X3, Cooperative, No Acute Distress Cardiovascular: Regular Rate Lungs: Normal Air Movement, bilateral rhonchi and wheeze Abdomen: Soft, No Tenderness Neurological: Normal Speech Extremities: No Edema Current Medications: Current Medications Sig/Thaddeus Start time Last Medication Dose Route Stop Time Status Admin Acetaminophen 650 MG Q6PRN PRN 09/07 0045 AC 09/07 PO 0035 Albuterol Sulfate 3 ML EVERY 4 HRS/AWAKE 09/04 1200 AC 09/09 INH 0800 Albuterol Sulfate 3 ML Q6 PRN 09/04 0845 AC INH Amoxicillin/ 875 MG Q12 09/08 2200 AC 09/08 Clavulanate Potassium PO 2111 Aripiprazole 2 MG DAILY 09/05 1133 AC 09/08 PO 0813 Aspirin Buffered 81 MG DAILY 09/04 1000 AC 09/08 PO 0813 Atorvastatin Calcium 40 MG 1700 09/04 1700 AC 09/08 PO 1645 Ceftriaxone Sodium 1,000 MG DAILY 09/05 1000 DC 09/08 IV 0814 Clonazepam 1 MG BID PRN 09/05 1145 AC 09/08 PO 09/12 1144 0033 Duloxetine HCl 30 MG DAILY 09/04 1000 AC 09/08 PO 0813 Enoxaparin Sodium 40 MG DAILY 09/04 1000 AC 09/08 SC 0815 Ferrous Sulfate 325 MG DAILY 09/05 1134 AC 09/08 PO 0813 Fluticasone 2 PUF BID 09/05 1133 AC 09/08 Propionate INH 2112 Furosemide 40 MG DAILY 09/04 1000 AC 09/08 PO 0814 Gabapentin 400 MG TID 09/05 1135 AC 09/08 PO 2110 Guaifenesin 600 MG Q12 09/04 2200 AC 09/08 PO 2111 Losartan Potassium 12.5 MG DAILY 09/04 1000 AC 09/08 PO 0815 Omeprazole 40 MG DAILY AC 09/06 0700 AC 09/09 PO 0538 Ondansetron HCl 4 MG ONCE ONE 09/09 0545 DC 09/09 PO 09/09 0546 0544 Potassium Chloride 40 MEQ DAILY 09/05 1114 AC 09/08 PO 0814 Prednisone 5 MG DAILY 09/14 1000 AC PO 09/16 0959 Prednisone 10 MG DAILY 09/12 1000 AC PO 09/14 0959 Prednisone 20 MG DAILY 09/10 1000 AC PO 09/12 0959 Prednisone 30 MG DAILY 09/08 1000 AC 09/08 PO 09/10 0959 0814 Tamsulosin HCl 0.4 MG DAILY 09/06 1000 AC 09/08 PO 0813 Last 24 Hrs of Lab/[place] Results Last 24 Hrs of Labs/Mics: Laboratory Tests 09/08/17 0809: Anion Gap 10, Estimated GFR > 60, BUN/Creatinine Ratio 30.0 H, CBC w Diff NO MAN DIFF REQ, RBC 4.55, MCV 92.2, MCH 29.8, RDW 13.2, MPV 6.8 L, Gran % 56.1, Lymphocytes % 31.1, Monocytes % 10.5 H, Eosinophils % 2.1, Basophils % 0.2, Absolute Granulocytes 6.6 H, Absolute Lymphocytes 3.7 H, Absolute Monocytes 1.2 H, Absolute Eosinophils 0.3, Absolute Basophils 0, PUBS MCHC 32.3 L Assessment/Plan Assessment: Ms. Murillo is a 72-year-old female with past medical history of bipolar disorder, depression, obesity dependence, mitral valve replacement, COPD on 23 liters home oxygen, HF, question CABG who presents from [facility] with respiratory distress. Assessment and Plan: #Dyspnea multifactoria; Acute Hypoxic Respiratory Failure and Acute on chronic heart failure with preserved ejection fraction: The patient's shortness of breath is likely multifactorial in the setting of her COPD history and cardiac history; she may also have a component of volume overload although her BNP level is not very elevated. She also had leukocytosis with bandemia and lactic acidosis. Her urine is positive for strep pneumonia. Chest x-ray showed bilateral basilar infiltrates consistent with pneumonia. Follow-up cultures show no growth so far. Patient is being followed by pulmonology and cardiology. For now we are monitoring fever and WBC curve patient remains afebrile with resolution of leukocytosis. Patient was being treated with IV ceftriaxone for probable pneumonia (will switch to oral Augmentin today) and steroid taper for underlying COPD. We're also continuing with gentle diuresis with by mouth Lasix 40 mg along with daily K-dur 40meq supplementation. #Stridor : CT neck to examine causes stridor such as tracheobronchomalacia, vocal cord dysfunction, was negative except for atypical mildly enlarged right lower paratracheal lymph node of 1.3 cm. * If stridor symptoms continue we could give her 1 dose of racemic epi nebulizer therapy - Patient felt generally improved on gen med floor, however the PE still showed some stridor during inspiratory phase, and diminished breath sound at lung bases. #Hypertensive urgency: Patient came in with hypertensive urgency which rapidly resolved. ACS was r/o with serial trops and EKGs. Echocardiogram shows normal biventricular function with an normal bioprosthetic valve #Neurogenic bladder patient has history of neurogenic bladder on chronic aguayo which was renewed when she presented to ED on 09/04 #Anxiety and bipolar disorder : Continue Klonopin #DVT prophylaxis with enoxaparin #Diet Heart healthy diet #CODE STATUS Full code Problem List: 1. CHF (congestive heart failure) 2. COPD with acute exacerbation Pain Ratin Pain Location: NA Pain Goal: Remain pain free Pain Plan: NA Tomorrow's Labs & Rationales: Charo Tang 09/09/17 1123: Attending MD Review Statement Attending Statement Attending MD Statement: examined this patient, discuss w/resident/PA/TYPESETTING SUPERVISOR, agreed w/resident/PA/TYPESETTING SUPERVISOR, discussed with family, reviewed EMR data (avail), discussed with nursing, discussed with case mgmt, reviewed images, amended to note Attending Assessment/Plan: Patient seen and examined. No new complaints. On examination patient is resting comfortably. She is on a baseline oxygen supplementation. f/u swallow evaluation to rule out aspiration. Continue bronchodilator therapy. Continue current regimen of oral steroids. Continue her home diuretic therapy of Lasix 40 mg orally daily. Earlier in the week there was concern that patient was having stridor. Chest CT was obtained that showed no tracheal abnormality. She currently has no evidence of stridor on examination. Patient is medically stable. Anticipate dc as pending bed availability.
[2017-09-09 09:19] LABS: ABSOLUTE BASOPHIL COUNT 0 /CUMM (0.0-0.2); ABSOLUTE EOSINOPHIL COUNT 0.1 /CUMM (0.0-0.7); ABSOLUTE GRANULOCYTE CT 8.7 /CUMM (1.4-6.5); ABSOLUTE LYMPH COUNT 3.2 /CUMM (1.2-3.4); ABSOLUTE MONOCYTE COUNT 0.8 /CUMM (0.10-0.60); BASOPHIL % 0.2 % (0.0-2.0); GRANULOCYTE % 67.7 % (42.2-75.2); HEMATOCRIT 40.7 % (37-47); MEAN CORPUSCULAR HGB 30.8 PG (27.0-31.0); MEAN CORPUSCULAR HGB CONC 33.3 G/DL (33.0-37.0); MEAN CORPUSCULAR VOLUME 92.6 FL (81.0-99.0); MEAN PLATELET VOLUME 6.7 FL (7.4-10.4); PLATELET COUNT 329 /CUMM (130-400); RBC DISTRIBUTION WIDTH 13.3 % (11.5-14.5); RED BLOOD CELL CT 4.39 /CUMM (4.20-5.40); WHITE BLOOD CELL COUNT 12.9 /CUMM (4.8-10.8)
--- NOTE | 2017-09-09 12:11 | PN- Pulmonary ---
Subjective HPI/Critical Care Issues: Patient seen and examined this morning. Despite her feeling better her lung examination has worsened us warning and she was tripoding. Objective Current Medications: Current Medications Sig/Thaddeus Start time Last Medication Dose Route Stop Time Status Admin Acetaminophen 650 MG Q6PRN PRN 09/07 0045 AC 09/07 PO 0035 Albuterol Sulfate 3 ML EVERY 4 HRS/AWAKE 09/04 1200 AC 09/09 INH 1154 Albuterol Sulfate 3 ML Q6 PRN 09/04 0845 AC INH Amoxicillin/ 875 MG Q12 09/08 2200 AC 09/09 Clavulanate Potassium PO 1020 Aripiprazole 2 MG DAILY 09/05 1133 AC 09/09 PO 1019 Aspirin Buffered 81 MG DAILY 09/04 1000 AC 09/09 PO 1020 Atorvastatin Calcium 40 MG 1700 09/04 1700 AC 09/08 PO 1645 Clonazepam 1 MG BID PRN 09/05 1145 AC 09/08 PO 09/12 1144 0033 Duloxetine HCl 30 MG DAILY 09/04 1000 AC 09/09 PO 1020 Enoxaparin Sodium 40 MG DAILY 09/04 1000 AC 09/09 SC 1022 Ferrous Sulfate 325 MG DAILY 09/05 1134 AC 09/09 PO 1020 Fluticasone 2 PUF BID 09/05 1133 AC 09/09 Propionate INH 1022 Furosemide 40 MG DAILY 09/04 1000 AC 09/09 PO 1021 Gabapentin 400 MG TID 09/05 1135 AC 09/09 PO 1019 Guaifenesin 600 MG Q12 09/04 2200 AC 09/09 PO 1020 Losartan Potassium 12.5 MG DAILY 09/04 1000 AC 09/09 PO 1020 Methylprednisolone 40 MG ONCE ONE 09/09 1130 DC IV 09/09 1131 Omeprazole 40 MG DAILY AC 09/06 0700 AC 09/09 PO 0538 Ondansetron HCl 4 MG ONCE ONE 09/09 0545 DC 09/09 PO 09/09 0546 0544 Potassium Chloride 40 MEQ DAILY 09/05 1114 AC 09/09 PO 1020 Prednisone 5 MG DAILY 09/14 1000 AC PO 09/16 0959 Prednisone 10 MG DAILY 09/12 1000 AC PO 09/14 0959 Prednisone 20 MG DAILY 09/10 1000 AC PO 09/12 0959 Prednisone 30 MG DAILY 09/08 1000 AC 09/09 PO 09/10 0859 1019 Tamsulosin HCl 0.4 MG DAILY 09/06 1000 AC 09/09 PO 1020 Vital Signs & I&O Last 24 Hrs of Vitals and I&O: Vital Signs Date Time Temp Pulse Resp B/P B/P Pulse O2 O2 Flow FiO2 Mean Ox Delivery Rate 09/09 1020 88 140/78 09/09 1020 88 140/78 09/09 0811 95 Nasal 2.0L Cannula 09/09 0800 95 Nasal 2.0L Cannula 09/09 0630 98.4 88 20 140/78 95 Nasal Cannula 09/09 0000 Nasal 2.0L Cannula 09/08 2255 97.8 95 22 132/80 97 Nasal Cannula 09/08 1730 98 Nasal 3.0L Cannula 09/08 1436 98.0 76 20 114/60 97 Nasal 3.0L Cannula 09/08 1348 94 Nasal 3.0L Cannula Intake & Output 09/09 1600 09/09 0800 09/09 0000 Intake Total 240 240 Output Total 250 475 Balance -10 -235 Intake, Oral 240 240 Number 0 Bowel Movements Output, Urine 250 475 Exam Other Physical Findings: gen awake and alert heent ncat cvs s1, s2 lungs rhonchi/wheezing bilateral lungs abd soft bs+ ext without edema Results Last 24 Hrs of Lab Results: Laboratory Tests 09/09/17 0815: Anion Gap 10, Estimated GFR > 60, BUN/Creatinine Ratio 32.0 H, CBC w Diff NO MAN DIFF REQ, RBC 4.39, MCV 92.6, MCH 30.8, RDW 13.3, MPV 6.7 L, Gran % 67.7, Lymphocytes % 24.8, Monocytes % 6.3, Eosinophils % 1.0, Basophils % 0.2, Absolute Granulocytes 8.7 H, Absolute Lymphocytes 3.2, Absolute Monocytes 0.8 H, Absolute Eosinophils 0.1, Absolute Basophils 0, PUBS MCHC 33.3 Impression/Plan Impression/Plan Impression/Plan: Impression 72 year old woman * cad, bioprosthetic MV for severe MR, left atrial clip * COPD * acute on chronic chf preserved ef * s.pneumo urine ag positive Plan -given hiatal hernia - aspiration precautions -cont prednisone with a taper - given 40mg iv solumedrol, would hold discharge today and re-evaluate need for more prednisone tonight -ins/outs, diuresis is recommended, f/u cardiology recs -trc/nebs -complete abx course (Augmentin) as ordered - strep pneumo + urine ag DVT prophylaxis at all times
[2017-09-09 14:14] VITALS: BP 116/68
[2017-09-09 22:08] VITALS: BP 100/60
[2017-09-10 06:32] VITALS: BP 130/70
--- NOTE | 2017-09-10 08:07 | PN- Housestaff ---
JonTracy 09/10/17 0803: Subjective Follow-up For: Dypsnea COPD exacerbation Pneumonia Subjective: [place] generally well, improved subjectively but awared that she still wheezed. Patient slept well overnight except woke up once around 2AM once. Patient is breathing under 2LNC Otherwise no complaint. Review of Systems Constitutional: Reports: see HPI. Objective Last 24 Hrs of Vital Signs/I&O Vital Signs Date Time Temp Pulse Resp B/P B/P Pulse O2 O2 Flow FiO2 Mean Ox Delivery Rate 09/10 0632 97.9 88 20 130/70 97 Nasal Cannula 09/10 0000 Nasal 2.0L Cannula 09/09 2208 98.6 87 20 100/60 100 Nasal Cannula 09/09 1600 Nasal 2.0L Cannula 09/09 1546 93 Nasal 2.0L Cannula 09/09 1414 98.9 112 22 116/68 95 Nasal Cannula 09/09 1020 88 140/78 09/09 1020 88 140/78 09/09 0811 95 Nasal 2.0L Cannula Intake & Output 09/10 1600 09/10 0800 09/10 0000 Intake Total 100 100 Output Total 500 300 Balance -400 -200 Intake, Oral 100 100 Output, Urine 500 300 Physical Exam General Appearance: Alert, Oriented X3, Cooperative, No Acute Distress Cardiovascular: Regular Rate Lungs: Normal Air Movement, b.l distant wheeze, , Use of abdominal/accessory muscles to breath Abdomen: Soft, No Tenderness Neurological: Normal Speech Extremities: No Edema, Normal Pulses Current Medications: Current Medications Sig/Thaddeus Start time Last Medication Dose Route Stop Time Status Admin Acetaminophen 650 MG Q6PRN PRN 09/07 0045 AC 09/07 PO 0035 Albuterol Sulfate 3 ML EVERY 4 HRS/AWAKE 09/04 1200 AC 09/09 INH 2120 Albuterol Sulfate 3 ML Q6 PRN 09/04 0845 AC INH Amoxicillin/ 875 MG Q12 09/08 2200 AC 09/09 Clavulanate Potassium PO 2213 Aripiprazole 2 MG DAILY 09/05 1133 AC 09/09 PO 1019 Aspirin Buffered 81 MG DAILY 09/04 1000 AC 09/09 PO 1020 Atorvastatin Calcium 40 MG 1700 09/04 1700 AC 09/09 PO 1641 Clonazepam 1 MG BID PRN 09/05 1145 AC 09/10 PO 09/12 1144 0234 Duloxetine HCl 30 MG DAILY 09/04 1000 AC 09/09 PO 1020 Enoxaparin Sodium 40 MG DAILY 09/04 1000 AC 09/09 SC 1022 Ferrous Sulfate 325 MG DAILY 09/05 1134 AC 09/09 PO 1020 Fluticasone 2 PUF BID 09/05 1133 AC 09/09 Propionate INH 2214 Furosemide 40 MG DAILY 09/04 1000 AC 09/09 PO 1021 Gabapentin 400 MG TID 09/05 1135 AC 09/09 PO 2213 Guaifenesin 600 MG Q12 09/04 2200 AC 09/09 PO 2213 Losartan Potassium 12.5 MG DAILY 09/04 1000 AC 09/09 PO 1020 Methylprednisolone 40 MG ONCE ONE 09/09 1130 DC 09/09 IV 09/09 1131 1312 Omeprazole 40 MG DAILY AC 09/06 0700 AC 09/10 PO 0607 Potassium Chloride 40 MEQ DAILY 09/05 1114 AC 09/09 PO 1020 Prednisone 5 MG DAILY 09/14 1000 AC PO 09/16 0959 Prednisone 10 MG DAILY 09/12 1000 AC PO 09/14 0959 Prednisone 20 MG DAILY 09/10 1000 AC PO 09/12 0959 Prednisone 30 MG DAILY 09/08 1000 AC 09/09 PO 09/10 0959 1019 Tamsulosin HCl 0.4 MG DAILY 09/06 1000 AC 09/09 PO 1020 Last 24 Hrs of Lab/Jay Jay Results Last 24 Hrs of Labs/Mics: Laboratory Tests 09/09/17 0815: Anion Gap 10, Estimated GFR > 60, BUN/Creatinine Ratio 32.0 H, CBC w Diff NO MAN DIFF REQ, RBC 4.39, MCV 92.6, MCH 30.8, RDW 13.3, MPV 6.7 L, Gran % 67.7, Lymphocytes % 24.8, Monocytes % 6.3, Eosinophils % 1.0, Basophils % 0.2, Absolute Granulocytes 8.7 H, Absolute Lymphocytes 3.2, Absolute Monocytes 0.8 H, Absolute Eosinophils 0.1, Absolute Basophils 0, PUBS MCHC 33.3 Assessment/Plan Assessment: Ms. Murillo is a 72-year-old female with past medical history of bipolar disorder, depression, obesity dependence, mitral valve replacement, COPD on 23 liters home oxygen, HF, question CABG who presents from [facility] with respiratory distress. Assessment and Plan: #Dyspnea multifactoria; Acute Hypoxic Respiratory Failure and Acute on chronic heart failure with preserved ejection fraction: The patient's shortness of breath is likely multifactorial in the setting of her COPD history and cardiac history; she may also have a component of volume overload although her BNP level is not very elevated. She also had leukocytosis with bandemia and lactic acidosis. Her urine is positive for strep pneumonia. Chest x-ray showed bilateral basilar infiltrates consistent with pneumonia. Follow-up cultures show no growth so far. Patient is being followed by pulmonology and cardiology. For now we are monitoring fever and WBC curve patient remains afebrile with resolution of leukocytosis. Patient remained afebrile since admission, WBC resolved to 9.0 on 09/07/17 but trended up to 12.9 on 09/09/2017, likely due to steroid-induced. - Patient was still breathing with accessory muscles and appeared labored, although patient subjectively had no complaint. - Will revert back to IV solumedrol 40mg q12, DC po prednisone, repeat CXR/ ProBNP and monitor resp status tomorrow AM if her condition improved. #Stridor : CT neck to examine causes stridor such as tracheobronchomalacia, vocal cord dysfunction, was negative except for atypical mildly enlarged right lower paratracheal lymph node of 1.3 cm. * If stridor symptoms continue we could give her 1 dose of racemic epi nebulizer therapy - Patient felt generally improved on gen med floor, however the PE still showed some stridor during inspiratory phase, and diminished breath sound at lung bases. #Hypertensive urgency: Patient came in with hypertensive urgency which rapidly resolved. ACS was r/o with serial trops and EKGs. Echocardiogram shows normal biventricular function with an normal bioprosthetic valve #Neurogenic bladder patient has history of neurogenic bladder on chronic aguayo which was renewed when she presented to ED on 09/04 #Anxiety and bipolar disorder : Continue Klonopin #DVT prophylaxis with enoxaparin #Diet Heart healthy diet #CODE STATUS Full code Problem List: 1. COPD with acute exacerbation 2. Respiratory failure 3. CHF (congestive heart failure) Pain Ratin Pain Location: NA Pain Goal: Remain pain free Pain Plan: see AP Tomorrow's Labs & Rationales: CBC/BEP Charo Prakash 09/10/17 1210: Attending MD Review Statement Attending Statement Attending MD Statement: examined this patient, discuss w/resident/PA/COMMUNITY RESOURCE OFFICER, agreed w/resident/PA/COMMUNITY RESOURCE OFFICER, discussed with family, reviewed EMR data (avail), discussed with nursing, discussed with case mgmt, reviewed images, amended to note Attending Assessment/Plan: Patient seen and examined. Patient feeling short of breath with use of accessory muscles. She is on a baseline oxygen supplementation. Continue bronchodilator therapy. Switch of oral steroids to iv steroids as per pulmonary. She is also on antibitoic therapy augmentin PO. Continue her home diuretic therapy of Lasix 40 mg orally daily. Earlier in the week there was concern that patient was having stridor. Chest CT was obtained that showed no tracheal abnormality. She currently has no evidence of stridor on examination. F/u Pulmonary for dc planning.
--- NOTE | 2017-09-10 10:22 | PN- Pulmonary ---
Subjective HPI/Critical Care Issues: pt seen and examined appears to be using accessory muscles she feels subjectively better, but she appears to be in mild distress and still wheeznig/rhonchi Objective Current Medications: Current Medications Sig/Thaddeus Start time Last Medication Dose Route Stop Time Status Admin Acetaminophen 650 MG Q6PRN PRN 09/07 0045 AC 09/07 PO 0035 Albuterol Sulfate 3 ML EVERY 4 HRS/AWAKE 09/04 1200 AC 09/10 INH 0832 Albuterol Sulfate 3 ML Q6 PRN 09/04 0845 AC INH Amoxicillin/ 875 MG Q12 09/08 2200 AC 09/09 Clavulanate Potassium PO 2213 Aripiprazole 2 MG DAILY 09/05 1133 AC 09/09 PO 1019 Aspirin Buffered 81 MG DAILY 09/04 1000 AC 09/09 PO 1020 Atorvastatin Calcium 40 MG 1700 09/04 1700 AC 09/09 PO 1641 Clonazepam 1 MG BID PRN 09/05 1145 AC 09/10 PO 09/12 1144 0234 Duloxetine HCl 30 MG DAILY 09/04 1000 AC 09/09 PO 1020 Enoxaparin Sodium 40 MG DAILY 09/04 1000 AC 09/09 SC 1022 Ferrous Sulfate 325 MG DAILY 09/05 1134 AC 09/09 PO 1020 Fluticasone 2 PUF BID 09/05 1133 AC 09/09 Propionate INH 2214 Furosemide 40 MG DAILY 09/04 1000 AC 09/09 PO 1021 Gabapentin 400 MG TID 09/05 1135 AC 09/09 PO 2213 Guaifenesin 600 MG Q12 09/04 2200 AC 09/09 PO 2213 Losartan Potassium 12.5 MG DAILY 09/04 1000 AC 09/09 PO 1020 Methylprednisolone 40 MG ONCE ONE 09/09 1130 DC 09/09 IV 09/09 1131 1312 Omeprazole 40 MG DAILY AC 09/06 0700 AC 09/10 PO 0607 Potassium Chloride 40 MEQ DAILY 09/05 1114 AC 09/09 PO 1020 Prednisone 5 MG DAILY 09/14 1000 AC PO 09/16 0959 Prednisone 10 MG DAILY 09/12 1000 AC PO 09/14 0959 Prednisone 20 MG DAILY 09/10 1000 AC PO 09/12 0959 Prednisone 30 MG DAILY 09/08 1000 DC 09/09 PO 09/10 0959 1019 Tamsulosin HCl 0.4 MG DAILY 09/06 1000 AC 09/09 PO 1020 Vital Signs & I&O Last 24 Hrs of Vitals and I&O: Vital Signs Date Time Temp Pulse Resp B/P B/P Pulse O2 O2 Flow FiO2 Mean Ox Delivery Rate 09/10 0840 93 Nasal 2.0L Cannula 09/10 0632 97.9 88 20 130/70 97 Nasal Cannula 09/10 0000 Nasal 2.0L Cannula 09/09 2208 98.6 87 20 100/60 100 Nasal Cannula 09/09 1600 Nasal 2.0L Cannula 09/09 1546 93 Nasal 2.0L Cannula 09/09 1414 98.9 112 22 116/68 95 Nasal Cannula Intake & Output 09/10 1600 09/10 0800 09/10 0000 Intake Total 100 100 Output Total 500 300 Balance -400 -200 Intake, Oral 100 100 Output, Urine 500 300 Exam Other Physical Findings: gen awake and alert heent ncat cvs s1, s2 lungs rhonchi/wheezing bilateral lungs abd soft bs+ ext without edema Impression/Plan Impression/Plan Impression/Plan: Impression 72 year old woman * cad, bioprosthetic MV for severe MR, left atrial clip * COPD * acute on chronic chf preserved ef * s.pneumo urine ag positive Plan -given hiatal hernia - aspiration precautions -dc po prednisone, solumedrol 40mg iv q12h for now -ins/outs, diuresis is recommended, f/u cardiology recs -trc/nebs -complete abx course (Augmentin) as ordered - strep pneumo + urine ag DVT prophylaxis at all times
--- NOTE | 2017-09-10 11:48 | RADIOLOGY REPORT ---
EXAMINATION: XR PORTABLE CHEST CLINICAL INFORMATION: Evaluate for cardiac issues/pulmonary edema/fluid. COMPARISON: 09/08/2016 TECHNIQUE: Portable frontal view of the chest was obtained. FINDINGS: Status post median sternotomy and mitral annular repair. The left atrial appendage clipping is again visualized. There are neurostimulator electrodes projecting over the mediastinum. The cardiomediastinal silhouette is stable. Retrocardiac opacity consistent with patient's known large hiatal hernia. Low lung volumes. Patchy bibasilar left greater than right airspace opacities suggesting atelectasis. There is subpleural vascular congestion without edema. There may be a small layering left pleural effusion. No definite consolidation. No pneumothorax. IMPRESSION: 1. Bibasilar atelectasis without evidence of a focal consolidation. 2. Pulmonary vascular congestion without surinder edema. 3. Hiatal hernia.
[2017-09-10 15:10] VITALS: BP 110/66
[2017-09-10 22:24] VITALS: BP 116/60
[2017-09-11 06:36] VITALS: BP 112/66
--- NOTE | 2017-09-11 10:28 | PN- Housestaff ---
Kamlesh VERONICA,[facility] 09/11/17 1028: Subjective Follow-up For: Dypsnea COPD exacerbation Pneumonia Subjective: No acute events. States breathing is ok today. No complaints. Review of Systems Constitutional: Reports: no symptoms. Cardiovascular: Reports: no symptoms. Respiratory: Reports: no symptoms. Gastrointestinal: Reports: no symptoms. Genitourinary: Reports: no symptoms. Objective Last 24 Hrs of Vital Signs/I&O Vital Signs Date Time Temp Pulse Resp B/P B/P Pulse O2 O2 Flow FiO2 Mean Ox Delivery Rate 09/11 1409 97.3 103 18 108/68 95 Nasal 2.0L Cannula 09/11 0930 96 Nasal 2.0L Cannula 09/11 0843 92 152/90 09/11 0842 92 152/90 09/11 0800 93 Nasal 2.0L Cannula 09/11 0636 98.1 94 20 112/66 96 Nasal 2.0L Cannula 09/11 0000 94 Nasal 2.0L Cannula 09/10 2224 98.0 99 20 116/60 94 09/10 1600 Nasal 2.0L Cannula 09/10 1555 95 Nasal 2.0L Cannula 09/10 1510 97.4 102 18 110/66 95 Intake & Output 09/11 1600 09/11 0800 09/11 0000 Intake Total 50 480 Output Total 950 300 700 Balance -950 -250 -220 Intake, IV 0 Intake, Oral 50 480 Number 0 Bowel Movements Output, Urine 950 300 700 Physical Exam General Appearance: Alert, Cooperative, No Acute Distress Skin Temp/Moisture Exam: Warm/Dry Cardiovascular: Regular Rate, Normal S1, Normal S2 Lungs: diffuse wheezing/rhonchi Abdomen: Normal Bowel Sounds, Soft, No Tenderness Extremities: 2+ radial pulses Current Medications: Current Medications Sig/Thaddeus Start time Last Medication Dose Route Stop Time Status Admin Acetaminophen 650 MG Q6PRN PRN 09/07 0045 AC 09/07 PO 0035 Albuterol Sulfate 3 ML EVERY 4 HRS/AWAKE 09/04 1200 AC 09/11 INH 1215 Albuterol Sulfate 3 ML Q6 PRN 09/04 0845 AC INH Amoxicillin/ 875 MG Q12 09/08 2200 AC 09/11 Clavulanate Potassium PO 0842 Aripiprazole 2 MG DAILY 09/05 1133 AC 09/11 PO 0842 Aspirin Buffered 81 MG DAILY 09/04 1000 AC 09/11 PO 0842 Atorvastatin Calcium 40 MG 1700 12/30 1700 AC 09/10 PO 1646 Benzonatate 100 MG TID 09/10 2200 AC 09/11 PO 0845 Clonazepam 1 MG BID PRN 09/05 1145 AC 09/11 PO 09/12 1144 0330 Duloxetine HCl 30 MG DAILY 09/04 1000 AC 09/11 PO 0842 Enoxaparin Sodium 40 MG DAILY 09/04 1000 AC 09/11 SC 0844 Ferrous Sulfate 325 MG DAILY 09/05 1134 AC 09/11 PO 0842 Fluticasone 2 PUF BID 09/05 1133 AC 09/11 Propionate INH 0843 Furosemide 40 MG DAILY 09/04 1000 AC 09/11 PO 0844 Gabapentin 400 MG TID 09/05 1135 AC 09/11 PO 0844 Guaifenesin 600 MG Q12 09/04 2200 AC 09/11 PO 0844 Losartan Potassium 12.5 MG DAILY 09/04 1000 AC 09/11 PO 0842 Methylprednisolone 40 MG DAILY 09/12 1000 CAN IV Methylprednisolone 40 MG Q12 09/10 2200 DC 09/11 IV 0844 Omeprazole 40 MG DAILY AC 09/06 0700 AC 09/11 PO 0652 Potassium Chloride 40 MEQ DAILY 09/05 1114 AC 09/11 PO 0843 Prednisone 10 MG DAILY 09/22 1000 AC PO 09/23 1001 Prednisone 20 MG DAILY 09/20 1000 AC PO 09/21 1001 Prednisone 30 MG DAILY 09/18 1000 AC PO 09/19 1001 Prednisone 40 MG DAILY 09/16 1000 AC PO 09/17 1001 Prednisone 50 MG DAILY 09/14 1000 AC PO 09/15 1001 Prednisone 60 MG DAILY 09/12 1000 AC PO 09/13 1001 Tamsulosin HCl 0.4 MG DAILY 09/06 1000 AC 09/11 PO 0843 Assessment/Plan Assessment: Ms. Murillo is a 72-year-old female with past medical history of bipolar disorder, depression, obesity dependence, mitral valve replacement, COPD on 23 liters home oxygen, HF, question CABG who presents from [facility] with respiratory distress. Assessment and Plan: #Dyspnea multifactorial; Acute Hypoxic Respiratory Failure and Acute on chronic heart failure with preserved ejection fraction: The patient's shortness of breath is likely multifactorial in the setting of her COPD history and cardiac history; she may also have a component of volume overload although her BNP level is not very elevated. She also had leukocytosis with bandemia and lactic acidosis. Her urine is positive for strep pneumonia. Chest x-ray showed bilateral basilar infiltrates consistent with pneumonia. Follow-up cultures show no growth so far. Patient is being followed by pulmonology and cardiology. For now we are monitoring fever and WBC curve patient remains afebrile with resolution of leukocytosis. Patient remained afebrile since admission, WBC resolved to 9.0 on 09/07/17 but trended up to 12.9 on 09/09/2017, likely due to steroid-induced. Patient was still breathing with accessory muscles and appeared labored, although patient subjectively had no complaint. Repeat chest x-ray:Bibasilar atelectasis without evidence of a focal consolidation. Pulmonary vascular congestion without surinder edema. Hiatal hernia. Probnp : 363 -> 128 -cont augmentin, discharge with 7 days total therapy -Taper IV Solu-Medrol to 40 mg daily, DC with po prednisone -Possible discharge tomorrow #Stridor : CT neck to examine causes stridor such as tracheobronchomalacia, vocal cord dysfunction, was negative except for atypical mildly enlarged right lower paratracheal lymph node of 1.3 cm. -If stridor symptoms continue we could give her 1 dose of racemic epi nebulizer therapy #Hypertensive urgency: Patient came in with hypertensive urgency which rapidly resolved. ACS was r/o with serial trops and EKGs. Echocardiogram shows normal biventricular function with an normal bioprosthetic valve #Neurogenic bladder patient has history of neurogenic bladder on chronic aguayo which was renewed when she presented to ED on 09/04 #Anxiety and bipolar disorder : Continue Klonopin #DVT prophylaxis with enoxaparin #Diet Heart healthy diet #CODE STATUS Full code Problem List: 1. COPD with acute exacerbation 2. Respiratory failure Pain Ratin Pain Location: no pain Pain Goal: Pain 4 or less Pain Plan: pain pathway Tomorrow's Labs & Rationales: cbc carrillop OlindaMorroelder 09/11/17 1501: Attending MD Review Statement Attending Statement Attending MD Statement: examined this patient, discuss w/resident/PA/QUALITY CONTROL OPERATOR, agreed w/resident/PA/QUALITY CONTROL OPERATOR, discussed with family, reviewed EMR data (avail), discussed with nursing, discussed with case mgmt, reviewed images, amended to note Attending Assessment/Plan: Patient seen and examined. Patient feeling better with shortness of breath without use of accessory muscles. She is on a baseline oxygen supplementation. Continue bronchodilator therapy. Switch of oral steroids to iv steroids as per pulmonary. She is also on antibitoic therapy augmentin PO. Continue her home diuretic therapy of Lasix 40 mg orally daily. Earlier in the week there was concern that patient was having stridor. Chest CT was obtained that showed no tracheal abnormality. She currently has no evidence of stridor on examination. F/u Pulmonary for dc planning.
--- NOTE | 2017-09-11 13:17 | PN- Pulmonary ---
Subjective HPI/Critical Care Issues: Patient appears to be doing much better she is no longer labored and feeling overall better anticipating discharge. Objective Current Medications: Current Medications Sig/Thaddeus Start time Last Medication Dose Route Stop Time Status Admin Acetaminophen 650 MG Q6PRN PRN 09/07 0045 AC 09/07 PO 0035 Albuterol Sulfate 3 ML EVERY 4 HRS/AWAKE 09/04 1200 AC 09/11 INH 1215 Albuterol Sulfate 3 ML Q6 PRN 09/04 0845 AC INH Amoxicillin/ 875 MG Q12 09/08 2200 AC 09/11 Clavulanate Potassium PO 0842 Aripiprazole 2 MG DAILY 09/05 1133 AC 09/11 PO 0842 Aspirin Buffered 81 MG DAILY 09/04 1000 AC 09/11 PO 0842 Atorvastatin Calcium 40 MG 1700 09/04 1700 AC 09/10 PO 1646 Benzonatate 100 MG TID 09/10 2200 AC 09/11 PO 0845 Clonazepam 1 MG BID PRN 09/05 1145 AC 09/11 PO 09/12 1144 0330 Duloxetine HCl 30 MG DAILY 09/04 1000 AC 09/11 PO 0842 Enoxaparin Sodium 40 MG DAILY 09/04 1000 AC 09/11 SC 0844 Ferrous Sulfate 325 MG DAILY 09/05 1134 AC 09/11 PO 0842 Fluticasone 2 PUF BID 09/05 1133 AC 09/11 Propionate INH 0843 Furosemide 40 MG DAILY 09/04 1000 AC 09/11 PO 0844 Gabapentin 400 MG TID 09/05 1135 AC 09/11 PO 0844 Guaifenesin 600 MG Q12 09/04 2200 AC 09/11 PO 0844 Losartan Potassium 12.5 MG DAILY 09/04 1000 AC 09/11 PO 0842 Methylprednisolone 40 MG DAILY 09/12 1000 CAN IV Methylprednisolone 40 MG Q12 09/10 2200 DC 09/11 IV 0844 Omeprazole 40 MG DAILY AC 09/06 0700 AC 09/11 PO 0652 Potassium Chloride 40 MEQ DAILY 09/05 1114 AC 09/11 PO 0843 Prednisone 10 MG DAILY 09/22 1000 AC PO 09/23 1001 Prednisone 20 MG DAILY 09/20 1000 AC PO 09/21 1001 Prednisone 30 MG DAILY 09/18 1000 AC PO 09/19 1001 Prednisone 40 MG DAILY 09/16 1000 AC PO 09/17 1001 Prednisone 50 MG DAILY 09/14 1000 AC PO 09/15 1001 Prednisone 60 MG DAILY 09/12 1000 AC PO 09/13 1001 Tamsulosin HCl 0.4 MG DAILY 09/06 1000 AC 09/11 PO 0843 Vital Signs & I&O Last 24 Hrs of Vitals and I&O: Vital Signs Date Time Temp Pulse Resp B/P B/P Pulse O2 O2 Flow FiO2 Mean Ox Delivery Rate 09/11 0930 96 Nasal 2.0L Cannula 09/11 0843 92 152/90 09/11 0842 92 152/90 09/11 0800 93 Nasal 2.0L Cannula 09/11 0636 98.1 94 20 112/66 96 Nasal 2.0L Cannula 09/11 0000 94 Nasal 2.0L Cannula 09/10 2224 98.0 99 20 116/60 94 09/10 1600 Nasal 2.0L Cannula 09/10 1555 95 Nasal 2.0L Cannula 09/10 1510 97.4 102 18 110/66 95 Intake & Output 09/11 1600 09/11 0800 09/11 0000 Intake Total 50 480 Output Total 300 700 Balance -250 -220 Intake, IV 0 Intake, Oral 50 480 Number 0 Bowel Movements Output, Urine 300 700 Exam Other Physical Findings: gen awake and alert heent ncat cvs s1, s2 lungs improved rhonchi abd soft bs+ ext without edema Impression/Plan Impression/Plan Impression/Plan: Impression 72 year old woman * cad, bioprosthetic MV for severe MR, left atrial clip * COPD * acute on chronic chf preserved ef * s.pneumo urine ag positive Plan -given hiatal hernia - aspiration precautions -Discontinue Solu-Medrol and begin prednisone taper slowly at 40 mg every 3 days 30 mg every 3 days 20 mg every 3 days 10 mg every 3 days then stop -ins/outs, diuresis is recommended, f/u cardiology recs -trc/nebs -complete abx course (Augmentin) as ordered - strep pneumo + urine ag DVT prophylaxis at all times
[2017-09-11 14:09] VITALS: BP 108/68
[2017-09-11 22:21] VITALS: BP 118/70
[2017-09-12 06:34] VITALS: BP 140/76
[2017-09-12 09:30] LABS: ABSOLUTE BASOPHIL COUNT 0 /CUMM (0.0-0.2); ABSOLUTE EOSINOPHIL COUNT 0.1 /CUMM (0.0-0.7); ABSOLUTE GRANULOCYTE CT 8.6 /CUMM (1.4-6.5); ABSOLUTE LYMPH COUNT 3.5 /CUMM (1.2-3.4); BASOPHIL % 0.3 % (0.0-2.0); EOSINOPHIL % 0.6 % (0-5); GRANULOCYTE % 64.9 % (42.2-75.2); HEMATOCRIT 37.1 % (37-47); MEAN CORPUSCULAR HGB 30.9 PG (27.0-31.0); MEAN CORPUSCULAR HGB CONC 33.6 G/DL (33.0-37.0); MEAN CORPUSCULAR VOLUME 91.8 FL (81.0-99.0); MEAN PLATELET VOLUME 6.8 FL (7.4-10.4); PLATELET COUNT 329 /CUMM (130-400); RBC DISTRIBUTION WIDTH 13.5 % (11.5-14.5); RED BLOOD CELL CT 4.05 /CUMM (4.20-5.40); WHITE BLOOD CELL COUNT 13.2 /CUMM (4.8-10.8)
--- NOTE | 2017-09-12 11:55 | PN- Att Addend ---
Attending Addendum Attending Brief Note Patient seen and examined. Patient feeling better with shortness of breath without use of accessory muscles. She is on a baseline oxygen supplementation. Continue bronchodilator therapy. Switch of oral steroids and taper steroids. She is also on antibitoic therapy augmentin PO which was completed. Continue her home diuretic therapy of Lasix 40 mg orally daily. Earlier there was concern that patient was having stridor. Chest CT was obtained that showed no tracheal abnormality. She currently has no evidence of stridor on examination. Anticipate dc planning to facility and cleared by pulmonary for discharge. Attending MD Review Statement Attending Statement Attending MD Statement: examined this patient, discuss w/resident/PA/LARRIMAN, agreed w/resident/PA/LARRIMAN, discussed with family, reviewed EMR data (avail), discussed w/ nursing, discussed w/case mgmt, reviewed images, amended to note Attending Assessment/Plan: d/wed house staff. Admission Lab Results I reviewed the following labs: Laboratory Tests 09/12 0830 Chemistry Sodium (137 - 145 mmol/L) 131 L Potassium (3.5 - 5.1 mmol/L) 3.7 Chloride (98 - 107 mmol/L) 93 L Carbon Dioxide (22 - 30 mmol/L) 33 H Anion Gap (5 - 16) 5 BUN (7 - 17 mg/dL) 19 H Creatinine (0.5 - 1.0 mg/dL) 0.6 Estimated GFR (>60 ml/min) > 60 BUN/Creatinine Ratio (7 - 25 %) 31.7 H Hematology CBC w Diff MAN DIFF ORDERED WBC (4.8 - 10.8 /CUMM) 13.2 H RBC (4.20 - 5.40 /CUMM) 4.05 L Hgb (12.0 - 16.0 G/DL) 12.5 Hct (37 - 47 %) 37.1 MCV (81.0 - 99.0 FL) 91.8 MCH (27.0 - 31.0 PG) 30.9 RDW (11.5 - 14.5 %) 13.5 Plt Count (130 - 400 /CUMM) 329 MPV (7.4 - 10.4 FL) 6.8 L Gran % (42.2 - 75.2 %) 64.9 Lymphocytes % (20.5 - 51.1 %) 26.6 Monocytes % (1.7 - 9.3 %) 7.6 Eosinophils % (0 - 5 %) 0.6 Basophils % (0.0 - 2.0 %) 0.3 Absolute Granulocytes (1.4 - 6.5 /CUMM) 8.6 H Segmented Neutrophils (42.2 - 75.2 %) Pending Absolute Lymphocytes (1.2 - 3.4 /CUMM) 3.5 H Absolute Monocytes (0.10 - 0.60 /CUMM) 1.0 H Absolute Eosinophils (0.0 - 0.7 /CUMM) 0.1 Absolute Basophils (0.0 - 0.2 /CUMM) 0 PUBS MCHC (33.0 - 37.0 G/DL) 33.6
--- NOTE | 2017-09-12 11:58 | PN- Pulmonary ---
Subjective HPI/Critical Care Issues: Patient seen and examined this morning. She appears to be doing better and there are no events. She is anticipating discharge. Objective Current Medications: Current Medications Sig/Thaddeus Start time Last Medication Dose Route Stop Time Status Admin Acetaminophen 650 MG Q6PRN PRN 09/07 0045 AC 09/07 PO 0035 Albuterol Sulfate 3 ML EVERY 4 HRS/AWAKE 09/04 1200 AC 09/12 INH 0821 Albuterol Sulfate 3 ML Q6 PRN 09/04 0845 AC INH Amoxicillin/ 875 MG Q12 09/08 2200 AC 09/12 Clavulanate Potassium PO 1013 Aripiprazole 2 MG DAILY 09/05 1133 AC 09/12 PO 1013 Aspirin Buffered 81 MG DAILY 09/04 1000 AC 09/12 PO 1013 Atorvastatin Calcium 40 MG 1700 09/04 1700 AC 09/11 PO 1612 Benzonatate 100 MG TID 09/10 2200 AC 09/12 PO 1014 Clonazepam 1 MG BID PRN 09/05 1145 DC 09/11 PO 09/12 1144 2135 Duloxetine HCl 30 MG DAILY 09/04 1000 AC 09/12 PO 1013 Enoxaparin Sodium 40 MG DAILY 09/04 1000 AC 09/12 SC 1013 Ferrous Sulfate 325 MG DAILY 09/05 1134 AC 09/12 PO 1030 Fluticasone 2 PUF BID 09/05 1133 AC 09/11 Propionate INH 2132 Furosemide 40 MG DAILY 09/04 1000 AC 09/12 PO 1014 Gabapentin 400 MG TID 09/05 1135 AC 09/12 PO 1014 Guaifenesin 600 MG Q12 09/04 2200 AC 09/12 PO 1014 Losartan Potassium 12.5 MG DAILY 09/04 1000 AC 09/12 PO 1030 Methylprednisolone 40 MG DAILY 09/12 1000 CAN IV Omeprazole 40 MG DAILY AC 09/06 0700 AC 09/12 PO 0604 Potassium Chloride 40 MEQ DAILY 09/05 1114 AC 09/12 PO 1014 Prednisone 10 MG DAILY 09/22 1000 CAN PO 09/23 1001 Prednisone 20 MG DAILY 09/20 1000 CAN PO 09/21 1001 Prednisone 30 MG DAILY 09/18 1000 CAN PO 09/19 1001 Prednisone 40 MG DAILY 09/16 1000 CAN PO 09/17 1001 Prednisone 50 MG DAILY 09/14 1000 CAN PO 09/15 1001 Prednisone 60 MG DAILY 09/12 1000 CAN PO 09/13 1001 Prednisone 40 MG DAILY 09/12 1000 AC 09/12 PO 09/14 1001 1014 Tamsulosin HCl 0.4 MG DAILY 09/06 1000 AC 09/12 PO 1014 Vital Signs & I&O Last 24 Hrs of Vitals and I&O: Vital Signs Date Time Temp Pulse Resp B/P B/P Pulse O2 O2 Flow FiO2 Mean Ox Delivery Rate 09/12 1030 138/72 09/12 1014 138/72 09/12 0822 94 Nasal 2.0L Cannula 09/12 0800 93 Nasal 2.0L Cannula 09/12 0634 98.0 88 20 140/76 98 Nasal 2.0L Cannula 09/12 0000 96 Nasal 2.0L Cannula 09/11 2221 98.0 92 20 118/70 96 09/11 1646 93 Nasal 2.0L Cannula 09/11 1559 Nasal 2.0L Cannula 09/11 1409 97.3 103 18 108/68 95 Nasal 2.0L Cannula Intake & Output 09/12 1600 09/12 0800 09/12 0000 Intake Total 240 240 Output Total 350 200 Balance -110 40 Intake, Oral 240 240 Number 1 Bowel Movements Output, Urine 350 200 Exam Other Physical Findings: gen awake and alert heent ncat cvs s1, s2 lungs improved rhonchi abd soft bs+ ext without edema Results Last 24 Hrs of Lab Results: Laboratory Tests 09/12/17 0830: Anion Gap 5, Estimated GFR > 60, BUN/Creatinine Ratio 31.7 H, CBC w Diff MAN DIFF ORDERED, RBC 4.05 L, MCV 91.8, MCH 30.9, RDW 13.5, MPV 6.8 L, Gran % 64.9 , Lymphocytes % 26.6, Monocytes % 7.6, Eosinophils % 0.6, Basophils % 0.3, Absolute Granulocytes 8.6 H, Segmented Neutrophils Pending, Absolute Lymphocytes 3.5 H, Absolute Monocytes 1.0 H, Absolute Eosinophils 0.1, Absolute Basophils 0, PUBS MCHC 33.6 Impression/Plan Impression/Plan Impression/Plan: Impression 72 year old woman * cad, 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
[2017-09-12] MEDS ORDERED: PREDNISONE10 M2 PO (11:59)
[2017-09-12 14:18] VITALS: BP 100/60
[2017-09-12 15:10] VITALS: BP 100/60
== END 2017-09-12 15:35 | DRG 193 ==
LOC: ERH 02:34 → ERHI 05:18 → 1NO 05:18 → ENRESERV 05:55 → 1NO 06:30 → ENTRNSPT 09-07 22:39 → 2NA 09-07 22:48 → CMPTRNSPT 09-07 22:50 → 2NA 09-09 09:33 → ENPENDDIS 09-12 12:21 → 2NA 09-12 15:35
PROVIDERS: Emergency Medicine; Internal Medicine Adolescent Medicine; Student in an Organized Health Care Education/Training Program
DX: J13 Pneumonia due to Streptococcus pneumoniae (principal); J96.01 Acute respiratory failure with hypoxia; I50.33 Acute on chronic diastolic (congestive) heart failure; E87.2 Acidosis; F33.2 Major depressive disorder, recurrent severe without psychotic features; J44.0 Chronic obstructive pulmonary disease with (acute) lower respiratory infection; F11.20 Opioid dependence, uncomplicated; I27.29 Other secondary pulmonary hypertension; J44.1 Chronic obstructive pulmonary disease with (acute) exacerbation; N31.2 Flaccid neuropathic bladder, not elsewhere classified; Z87.01 Personal history of pneumonia (recurrent); Z99.81 Dependence on supplemental oxygen; I11.0 Hypertensive heart disease with heart failure; N39.498 Other specified urinary incontinence; Z87.891 Personal history of nicotine dependence; Z95.2 Presence of prosthetic heart valve; Z79.01 Long term (current) use of anticoagulants; G89.29 Other chronic pain; M54.9 Dorsalgia, unspecified; F41.9 Anxiety disorder, unspecified; Z99.3 Dependence on wheelchair; K44.9 Diaphragmatic hernia without obstruction or gangrene; I16.0 Hypertensive urgency
CPT/HCPCS: 1NP; 2NAP; 36415; 71045; 71046; 81001; 82436; 87040; 87086; 87449; 87450; 93005; 93010; 93306; 96374; 96375; 99291; J0696; J0713; J1650; J1940; J2920; J2930; J3370; J3490; J7040; J7060; J7512; Q9965